=== PATIENT | male | born 1940 | race Caucasian/White ===

== ENCOUNTER 2017-09-12 03:15 | Inpatient (IN) ==
[2017-09-12] MEDS ORDERED: Pantoprazole 40 MG VIAL IVP ONE (04:03)
[2017-09-12] MEDS ORDERED: Ondansetron 4 MG/2 ML VIAL IVP ONE (04:03)
[2017-09-12] MEDS ORDERED: *HR* Nalbuphine 10 MG/ML AMPUL IVP STA (04:04)
--- NOTE | 2017-09-12 04:10 | Emergency Department Note ---
Disposition Clinical Impression: Abdominal pain Qualifiers: Abdominal location: epigastric Qualified Code(s): R10.13 - Epigastric pain Disposition: Admitted As Inpatient Condition: Good Referrals: Huy Reyes DO [Primary Care Provider] - Time of Disposition: 05:41 Abdominal Pain HPI - General Chief Complaint: ED Abdominal Pain Stated Complaint: abdominal pain/back pain was here yesterday Time Seen by Provider: 09/12/17 03:27 Source: patient Limitations: no limitations Nursing Notes Reviewed: Yes Vital Signs Reviewed: Yes - History of Present Illness HPI Narrative: This is a 77 year-old male with history of HTN, GERD, and biliary colic who presents with colicky mid-epigastric abdominal pain, radiating to the upper back , that began 1.5 days ago and has been persistent since then. He denies any associated fever, chest pain, vomiting, dyspnea, or urinary symptoms. He was seen here 1 day ago for these symptoms, and had a full workup including CT scans of the chest and abdomen and gallbladder ultrasound. The scans showed cholelithiasis and it was felt that his pain might be due to recurrent biliary colic. Patient presents again early this morning with worsening pain, not relieved by the analgesic he was prescribed. Pt Subjective Complaint: abdominal pain Onset (ago): day(s) (1.5) Consistency: Worsening Location: epigastric Pain Severity: moderate Pain Scale: 6 Quality: cramping, sharp Radiation: back (upper) Migration to: no migration Improves with: nothing Worsens with: nothing Context: history of similar episodes (attributed to biliary colic) Associated symptoms: Denies: nausea, vomiting, diarrhea, fever, constipation, dysuria, hematemesis, hematochezia, melena - Related Data Previous Rx's Medication Instructions Recorded Dicyclomine [Bentyl] 10 mg PO QID PRN #20 capsule 09/11/17 Ondansetron ODT [Zofran ODT] 4 mg SL Q8HR PRN #20 tab.rapdis 09/11/17 Allergies Allergy/AdvReac Type Severity Reaction Status Date / Time No Known Allergies Allergy Verified 09/11/17 06:17 All systems ED: reviewed and negative except as stated. Constitutional: Denies: fever Cardiovascular: Denies: chest pain Respiratory: Denies: dyspnea Gastrointestinal: Reports: as per HPI, abdominal pain. Denies: nausea, vomiting , diarrhea, constipation, hematemesis, melena, hematochezia Genitourinary: Denies: dysuria Neurological: Denies: headache, weakness, numbness Abdominal Pain PMH - Past Medical History Medical history: Reports: hypertension Male Surgical History: Reports: herniorrhaphy Psychiatric history: Reports: no psych history - Social History Smoking status: Never smoker Alcohol use: Reports: none Drug use: Reports: none Physical Exam - General Limitations: no limitations General appearance: alert - Head Head exam: atraumatic, normocephalic - Eye Eye exam: Present: normal appearance. Absent: scleral icterus - Neck Neck exam: Present: normal inspection - Respiratory Respiratory exam: Present: normal lung sounds bilaterally. Absent: respiratory distress - Cardiovascular Cardiovascular exam: Present: regular rate, normal rhythm, normal heart sounds - Abdominal Exam Abdominal exam: Present: soft, Non-Tender. Absent: distention, guarding, rebound, rigidity, Watkins's sign, tenderness at McBurney's Point - Extremities Exam Extremities exam: Present: normal inspection. Absent: calf tenderness - Neurological Exam Neurological exam: Present: alert, oriented X3. Absent: motor sensory deficit - Psychiatric Psychiatric exam: Present: normal affect, normal mood - Skin Skin exam: Present: warm, dry, intact Course - Reevaluation(s) Reevaluation #1: On recheck, patient resting comfortably, pain improved with treatment. Discussed test results with patient's . Time: 05:36 - Consultations Consultation #1: Reviewed case with Dr. Radford, and he has accepted patient for admission. Time: 05:41 Vital Signs Temperature 98.5 F 09/12/17 03:38 Pulse Rate 83 09/12/17 03:38 Respiratory Rate 18 09/12/17 03:38 Blood Pressure 136/85 09/12/17 03:38 O2 Sat by Pulse Oximetry 90 09/12/17 03:38 Temperature 98.5 F 09/12/17 03:38 Pulse Rate 83 09/12/17 03:38 Respiratory Rate 18 09/12/17 03:38 Blood Pressure 136/85 09/12/17 03:38 O2 Sat by Pulse Oximetry 90 09/12/17 03:38 Oxygen Delivery Oxygen Delivery Room Air Abdominal Pain - Medical Records Medical records reviewed: Yes I reviewed the patient's medical records. WBC markedly elevated in comparison with yesterday. Total bilirubin and LFTs also trending upward. - Lab Data Lab results reviewed: Yes I reviewed the patient's lab results. Lab results narrative: XR/XR acute abdominal series IMPRESSION: Nonobstructive bowel gas pattern. No free intraperitoneal air. Large hiatus hernia. Result diagrams: 09/12/17 04:11 09/12/17 04:11 Lab Results 09/12/17 09/12/17 09/12/17 Range/Units 04:11 04:11 04:11 WBC 20.3 H D (4.3-11.1) K/mcL RBC 5.98 H (4.19-5.50) M/mcL Hgb 18.6 H (12.9-16.9) g/dL Hct 54.9 H (37.5-50.1) % MCV 91.8 (83.0-100.0) fL MCH 31.1 (28.0-33.3) pg MCHC 33.9 (31.6-35.5) g/dL RDW 13.5 (11.5-14.5) % Plt Count 231 (140-400) K/mcL MPV 10.9 (9.4-12.4) fL Immature Gran % 0.6 (0-4) % Seg Neutrophils % 88.5 % Lymphocytes % 4.4 % Monocytes % 6.3 % Eosinophils % 0.0 % Basophils % 0.2 % Neutrophils # 18.0 H (1.6-8.9) K/mcL Lymphocytes # 0.9 (0.6-4.6) K/mcL Monocytes # 1.3 (0.0-1.3) K/mcL Eosinophils # 0.0 (0.0-0.6) K/mcL Basophils # 0.0 (0.0-0.2) K/mcL Sodium 135 L (136-145) mEq/L Potassium 4.3 (3.5-5.1) mEq/L Chloride 103 (98-107) mEq/L Carbon Dioxide 23 (23-29) mEq/L BUN 11 (8-23) mg/dL Creatinine 0.96 (0.70-1.30) mg/dL Est GFR ( Amer) > 60 (> 60) Est GFR (Non-Af Amer) > 60 (> 60) BUN/Creatinine Ratio 11 (6-26) Glucose 145 H (70-105) mg/dL Calculated Osmolality 282 (280-300) Calcium 9.4 (8.6-10.3) mg/dL Total Bilirubin 1.6 H (0.3-1.0) mg/dL Direct Bilirubin 0.4 H (0.0-0.2) mg/dL Indirect Bilirubin 1.2 (0.0-1.2) mg/dL AST 53 H (13-39) Units/L ALT 93 H (7-52) Units/L Alkaline Phosphatase 110 H (34-104) Units/L Troponin I 0.03 (< 0.04) ng/mL Serum Total Protein 7.1 (6.4-8.9) g/dL Albumin 4.4 (3.5-5.7) g/dL Globulin 2.7 (2.4-3.5) g/dL Albumin/Globulin Ratio 1.6 (1.1-2.2) Amylase 40 (29-103) Units/L Lipase 21 (11-82) Units/L Urine Color [place] A (Yellow) Urine Clarity Clear (Clear) Urine pH 6.0 (5.0-8.0) pH Units Ur Specific [place] > 1.030 H (1.010-1.025) Urine Protein 30 H (Neg-Trace) mg/dL Urine Glucose (UA) Normal (Normal) mg/dL Urine Ketones 15 H (Negative) mg/dL Urine Blood Negative (Negative) Urine Nitrite Negative (Negative) Urine Bilirubin Small H (Negative) Urine Urobilinogen Normal (Normal) mg/dL Ur Leukocyte Esterase Small H (Negative) Urine Microscopic RBC 0-3 (0-3) per hpf Urine Microscopic WBC 5-15 H (0-3) per hpf Ur Squamous Epith Cells Many H (None-Few) per lpf Urine Bacteria None Seen (None-Few) per hpf Hyaline Casts Moderate H (None-Few) per lpf Urine Mucus Moderate H (Few) Ur Culture Indicated? NO. A (NO) - Radiology Data Radiology results reviewed: Yes I reviewed the patient's radiology results. XR/XR acute abdominal series IMPRESSION: Nonobstructive bowel gas pattern. No free intraperitoneal air. Large hiatus hernia. - EKG Data EKG attestation: Yes I reviewed and interpreted this EKG. EKG shows normal: sinus rhythm [place]/QRS: left axis deviation, LBBB When compared to previous EKG there are: changes noted (12/27/12 (yesterday's EKG not available))
[2017-09-12 04:19] LABS: Bilirubin,Urine Small (Negative); Blood,Urine Negative (Negative); Clarity,Urine Clear (Clear); Color,Urine Orange (Yellow); Glucose,Urine (UA) Normal (Normal); Ketones,Urine 15 mg/dL (Negative); Leukocyte Esterase,Urine Small (Negative); Nitrite,Urine Negative (Negative); Protein,Urine 30 mg/dL (Neg-Trace); Specific Gravity,Urine > 1.030 (1.010-1.025); Urobilinogen,Urine Normal (Normal)
[2017-09-12 04:20] LABS: Bacteria,Urine None Seen per hpf (None-Few); Hyaline Casts,Urine Moderate per lpf (None-Few); RBC,Urine 0-3 per hpf (0-3); Squamous Epithelial Cell,Urine Many per lpf (None-Few)
[2017-09-12 04:21] LABS: Basophils % 0.2 %; Hematocrit 54.9 % (37.5-50.1); Hemoglobin 18.6 g/dL (12.9-16.9); Immature Granulocytes % 0.6 % (0-4); Lymphocytes # 0.9 K/mcL (0.6-4.6); Lymphocytes % 4.4 %; Mean Corpuscular HGB Conc 33.9 g/dL (31.6-35.5); Mean Corpuscular Hemoglobin 31.1 pg (28.0-33.3); Mean Corpuscular Volume 91.8 fL (83.0-100.0); Mean Platelet Volume 10.9 fL (9.4-12.4); Monocytes # 1.3 K/mcL (0.0-1.3); Monocytes % 6.3 %; Platelet Count 231 K/mcL (140-400); Red Blood Count 5.98 M/mcL (4.19-5.50); Red Cell Distribution Width 13.5 % (11.5-14.5); Segmented Neutrophils % 88.5 %
[2017-09-12 04:31] LABS: Mucus,Urine Moderate (Few)
[2017-09-12 04:45] LABS: Alanine Aminotransferase 93 Units/L (7-52); Albumin 4.4 g/dL (3.5-5.7); Albumin/Globulin Ratio 1.6 (1.1-2.2); Alkaline Phosphatase 110 Units/L (34-104); Amylase 40 Units/L (29-103); Aspartate Amino Transferase 53 Units/L (13-39); BUN/Creatinine Ratio 11 (6-26); Bilirubin,Direct 0.4 mg/dL (0.0-0.2); Bilirubin,Indirect 1.2 mg/dL (0.0-1.2); Bilirubin,Total 1.6 mg/dL (0.3-1.0); Blood Urea Nitrogen 11 mg/dL (8-23); Calcium 9.4 mg/dL (8.6-10.3); Carbon Dioxide 23 mEq/L (23-29); Chloride 103 mEq/L (98-107); Globulin 2.7 g/dL (2.4-3.5); Glucose 145 mg/dL (70-105); Lipase 21 Units/L (11-82); Osmolality,Calculated 282 (280-300); Potassium 4.3 mEq/L (3.5-5.1); Sodium 135 mEq/L (136-145); Total Protein 7.1 g/dL (6.4-8.9); Troponin I 0.03 ng/mL (< 0.04); eGFR For African Americans > 60 (> 60); eGFR For Non-African Americans > 60 (> 60)
--- NOTE | 2017-09-12 09:25 | General Surg History&Physical ---
Date of Encounter: 09/12/17 Time of Encounter: 09:25 Assessment and Plan (1) Cholecystitis Current Visit: Yes Status: Acute 77M with post prandial abdominal pain, cholelithiasis, leukocytosis; strongly concerning for acute cholecystitis; NPO IVF abx chem dvt prophylaxis: lovenox cardiology evaluation plan for OR on 09/14 The assessment and plan as outlined above was discussed with the patient and/or family members who expressed understanding and agreement. All questions were answered. History of Present Illness Chief complaint: abdominal pain HPI: Mr. Gonzalez is a 77 year old male PMH significant for HTN, GERD who presents for post prandial abdominal pain. The pain is brought on after eating things like potato chips, beninese fries and the like. The patient does report associated nausea and PO intolerance. In addition, the pain is epigastric with radiation to the right shoulder/back. No associated fevers, chills, chest pain, nor shortness of breath. He was evaluated in the ED on 09/11 and discharged but returned the following day due to persistence of symptoms. he did have an US which was evaluated and interpreted by me which demonstrated gallstones. He also had a CT scan which confirmed the same. Past Med Surg Social Fam HX - Past Medical History Medical history: hypertension, kidney stones Additional medical history: prostate cancer. right eye retinal detachment Psychiatric history: no psych history - Past Surgical History Surgical History: cataract Additional surgical history: Sx for detached retinas - Social History Smoking Status: Never smoker Smokeless Tobacco Status: No Alcohol use: none Drug use: none - Additional Family History Additional family history: non contributory Medications and Allergies Amlodipine Besylate 10 mg PO DAILY 09/12/17 [History] Omeprazole [PriLOSEC] 20 mg PO BIDAC 09/12/17 [History] 3 Allergy/AdvReac Type Severity Reaction Status Date / Time No Known Allergies Allergy Verified 09/11/17 06:17 Review of Systems All systems PM: The remainder of the systems were reviewed and are negative General Surgery Exam Initial Vital Signs Temp Pulse Resp BP Pulse Ox 98.5 F 83 18 136/85 90 09/12/17 03:38 09/12/17 03:38 09/12/17 03:38 09/12/17 03:38 09/12/17 03:38 - General physical appearance no distress - Eyes normal ocular movement - ENT normocephalic - Neck no lymphadectomy - Respiratory normal expansion, normal respiratory effort - Cardiovascular Cardiovascular exam: Present: RRR - Abdomen Abdomen general surgery: Present: soft, tender, surgical scars Abdominal Tenderness: Present: epigastic, RUQ ((-)hernandez's sign) - Integumentary Integumentary general surgery: Present: warm and dry - Neurologic Present: CN 2-12 grossly intact - Musculoskeletal Present: normal posture - Psychiatric Psychiatric general surgery: Present: A&Ox3 Results - Labs 09/12/17 04:11 09/12/17 04:11 Abnormal lab results WBC 20.3 K/mcL (4.3-11.1) H D 09/12/17 04:11 RBC 5.98 M/mcL (4.19-5.50) H 09/12/17 04:11 Hgb 18.6 g/dL (12.9-16.9) H 09/12/17 04:11 Hct 54.9 % (37.5-50.1) H 09/12/17 04:11 Neutrophils # 18.0 K/mcL (1.6-8.9) H 09/12/17 04:11 Sodium 135 mEq/L (136-145) L 09/12/17 04:11 Glucose 145 mg/dL (70-105) H 09/12/17 04:11 POC Glucose 129 mg/dL (70-99) H 09/12/17 06:38 Total Bilirubin 1.6 mg/dL (0.3-1.0) H 09/12/17 04:11 Direct Bilirubin 0.4 mg/dL (0.0-0.2) H 09/12/17 04:11 AST 53 Units/L (13-39) H 09/12/17 04:11 ALT 93 Units/L (7-52) H 09/12/17 04:11 Alkaline Phosphatase 110 Units/L (34-104) H 09/12/17 04:11 Urine Color [place] (Yellow) A 09/12/17 04:11 Ur Specific [place] > 1.030 (1.010-1.025) H 09/12/17 04:11 Urine Protein 30 mg/dL (Neg-Trace) H 09/12/17 04:11 Urine Ketones 15 mg/dL (Negative) H 09/12/17 04:11 Urine Bilirubin Small (Negative) H 09/12/17 04:11 Ur Leukocyte Esterase Small (Negative) H 09/12/17 04:11 Urine Microscopic WBC 5-15 per hpf (0-3) H 09/12/17 04:11 Ur Squamous Epith Cells Many per lpf (None-Few) H 09/12/17 04:11 Hyaline Casts Moderate per lpf (None-Few) H 09/12/17 04:11 Urine Mucus Moderate (Few) H 09/12/17 04:11 Ur Culture Indicated? NO. (NO) A 09/12/17 04:11 All other labs normal. - Imaging CT scan - abdomen: report reviewed, image reviewed CT scan - pelvis: report reviewed, image reviewed US - abdomen: report reviewed, image reviewed
[2017-09-12] MEDS ORDERED: OXYCODONE Oral CONC 10 MG/0.5 ML ORAL.SYG SL PRN (09:33)
[2017-09-12] MEDS ORDERED: Ondansetron 4 MG/2 ML VIAL IVP PRN ×2 (09:33→09:35)
[2017-09-12] MEDS ORDERED: 0.9 % Sodium Chloride 1,000 ML IVC ONE (09:33)
[2017-09-12] MEDS ORDERED: *HR* Promethazine 25 MG/ML VIAL IVP PRN (09:35)
[2017-09-12] MEDS ORDERED: Piperacillin/Tazobactam 3.375 GM in 0.9 % Sodium Chloride Mini Bag 100 ML IVPB SCH (09:36)
--- NOTE | 2017-09-12 10:02 | Electrocardiograph Report ---
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
--- NOTE | 2017-09-12 10:56 | Cardiology Consult Note ---
<Juan Murphy - Last Filed: 09/12/17 12:29> Date of Encounter: 09/12/17 Time of Encounter: 10:45 Assessment and Plan (1) Pre-operative cardiovascular examination Current Visit: Yes Status: Acute Risk factors include very mild LDL elevation (109), and hypertension. Takes Norvasc at home for HTN. New LBBB compared to 2013, though overall morphologically similar. Patient does state he has had abnormal EKGs for 20 years. Negative troponin x1. Acutely asymptomatic. Paucity of other historical risk factors. No acute ACS equivalent symptoms. - 1% risk of perioperative MACE based on RCRI risk stratification tool - low risk. - Will obtain an echocardiogram. Further recommendations to follow pending results. Discussion w patient/family: The assessment and plan as outlined above was discussed with the patient and/or family members who expressed understanding and agreement. All questions were answered. Thank you for involving us in the care of your patient. Please call with any questions. History of Present Illness Consult date: 09/12/17 Requesting physician: Osmin Radford Consult reason: "Pre-op risk stratification" Chief complaint: Abdominal Pain History of present illness: Mr. Gonzalez is a 77 year old male with past medical history of hypertension currently admitted to general surgery service for right upper quadrant pain, cholecystitis, and planned cholecystectomy. Cardiology consulted for preoperative risk stratification. Only known relevant history is positive is "abnormal EKGs since 1997" when he was kicked by a horse, and HTN. Patient denies any history of cardiac dysrhythmias, cardiomyopathy, CAD, myocardial infarction, chest pain, congestive heart failure, asthma/emphysema/COPD, HLP, CVA, TIA, PE, DVT, PAD, diabetes, CKD, hepatic cirrhosis, or history of use of tobacco/alcohol/ stimulants. Also states family history unremarkable for cardiovascular diseases. Labs on present admission demonstrate LDL of 109 and HDL of 36. EKG today demonstrates rate 84, NM 163, QRS 147, QTc 443, and R-axis -46 (LAD) . New LBBB compared to EKG dated 12/27/2012 Does get occasional pedal edema when he walks for extended periods of time. Patient tolerates extended ambulation without any fatigue or dyspnea. Patient tolerates going down and up his basement stairs (12-15 steps) without any exertional dyspnea. Patient sleeps fully supine without any difficulty breathing. Patient denies any ongoing or historical retrosternal chest pain. No history of pulmonologic pathologies or ongoing shortness of breath. Presently denies having any lightheadedness, recent syncope, visual disturbances , fatigue, chest pain, palpitations, shortness of breath, worsening pedal edema , or noted weight increases. Past Med Surg Social Fam HX - Past Medical History Source: patient, old records reviewed Medical history: hyperlipidemia, hypertension, kidney stones Additional medical history: prostate cancer. right eye retinal detachment Psychiatric history: no psych history - Past Surgical History Surgical History: non-contributory, cataract Additional surgical history: Sx for detached retinas - Social History Smoking Status: Never smoker Smokeless Tobacco Status: No Alcohol use: none Drug use: none Medications and Allergies Amlodipine Besylate 10 mg PO DAILY 09/12/17 [History] Omeprazole [PriLOSEC] 20 mg PO BIDAC 09/12/17 [History] 3 Allergy/AdvReac Type Severity Reaction Status Date / Time No Known Allergies Allergy Verified 09/12/17 09:49 All Systems Review: The remainder of the systems were reviewed and are negative Physical Examination General: Conversant, No Apparent Distress HEENT: Atraumatic, Normocephaly, Mucus Membranes Moist Neck: No JVD, Normal carotid pulses Cardiac: Reg Rate and Rhythm, Normal S1 and S2, No Murmur Lungs: Normal Breath Sounds, No Wheeze, Rales, Rhonchi Neuro: Alert and responsive, No focal deficits noted Abdomen: Soft, Non-Tender Skin: No rashes noted on visualized skin Musculoskeletal: No Chest Wall Tenderness Extremities: No Clubbing, No Cyanosis, No Edema, Normal Pulses Results 09/12/17 04:11 09/12/17 04:11 Consult Discharge Plan - Plan Referrals: Huy Reyes DO [Primary Care Provider] - <Mary Bullock - Last Filed: 09/12/17 17:18> Date of Encounter: 09/12/17 - Attending Attestation I examined this patient and my medical decision-making was reviewed with the Resident Physician. I agree with the documented findings, disposition and treatment plan. Mr. Gonzalez presents with RUQ pain. Surgery service concerned for cholecystitis and plan for possible cholecystectomy. CT scan demonstrated cholelithiasis with mild GB distention. We were asked to evaluate the patient for risk assessment prior to surgery. He denies any cardiac history and has no active cardiac symptoms. However, his ECG demonstrates a LBBB which is new when compared to prior ECG from 2013. It is unclear when this change occurred. Risk factors for CAD include male gender , HTN and borderline dyslipidemia. Discussed consideration for ischemic evaluation prior to potential surgery. He will undergo an Echo for evaluation of structure and function. Of note, CT scan also demonstrated a 5mm nonobstructing calculi in the right kidney which potentially could be contributing to the patient's discomfort. He has evidence of a 9mm calculus in the bladder lumen suggesting this recently traversed the ureter possibly explaining his recent symptoms. Recommend considering this in the differential of patient's presenting symptoms. Troponin negative x2. No recent chest pain. Symptoms do not appear related to a cardiac etiology. Assessment and Plan Discussion w patient/family: The assessment and plan as outlined above was discussed with the patient and/or family members who expressed understanding and agreement. All questions were answered. Thank you for involving us in the care of your patient. Please call with any questions. History of Present Illness History of present illness: Mr. Gonzalez is a 77 year old male All Systems Review: The remainder of the systems were reviewed and are negative Physical Examination Vital Signs, Last 4 Hours Temp Pulse Resp BP Pulse Ox 09/12/17 14:40 97.5 F L 66 20 125/74 92 Results 09/12/17 04:11 09/12/17 04:11
--- NOTE | 2017-09-12 13:07 | Event Note ---
Date of Encounter: 09/12/17 Time of Encounter: 13:04 1250: Reviewed with bedside RN regarding pt has not received 1st dose of Zosyn or IV fluids. RN states she will administer medications. Further reviewed with patient his treatment plan including remaining in the hospital for IV antibiotics given increase in WBC and plans for surgical intervention this admission (currently scheduled for 8 AM Tuesday09/14/2017). Also reviewed with patient and his the need for cardiology consult for cardiovascular risk stratification given his abnormal EKG. Noted cardiology plans for echocardiogram. Okay for patient to have clear liquid diet however I would not recommend progressing past that at this time given his reports of increased abdominal pain this admission and his elevated WBC. NPO at midnight for surgical procedure on 09/14/2017
[2017-09-12] MEDS: amLODIPine 5 MG TABLET PO SCH (13:26)
[2017-09-12] MEDS: Piperacillin/Tazobactam 3.375 GM in 0.9 % Sodium Chloride Mini Bag 100 ML IVPB SCH ×2 (13:31→21:43)
[2017-09-12] MEDS: *HR* Enoxaparin 40 MG/0.4 ML SYRINGE SQ SCH (13:34)
[2017-09-12] MEDS: D5% in 0.45% NACL w KCl 20 MEQ/1,000 ML MLS IVC SCH ×2 (19:57→20:14)
[2017-09-13] MEDS: Piperacillin/Tazobactam 3.375 GM in 0.9 % Sodium Chloride Mini Bag 100 ML IVPB SCH (03:20)
[2017-09-13] MEDS ORDERED: Regadenoson 0.4 MG/5 ML SYRINGE IVP ONE (05:41)
[2017-09-13] MEDS: D5% in 0.45% NACL w KCl 20 MEQ/1,000 ML MLS IVC SCH ×3 (05:42→22:29)
[2017-09-13] MEDS: *HR* Enoxaparin 40 MG/0.4 ML SYRINGE SQ SCH (05:44)
[2017-09-13 06:48] LABS: Hemoglobin 16.1 g/dL (12.9-16.9); Mean Corpuscular HGB Conc 34.3 g/dL (31.6-35.5); Mean Corpuscular Hemoglobin 31.6 pg (28.0-33.3); Mean Corpuscular Volume 92.3 fL (83.0-100.0); Mean Platelet Volume 11.3 fL (9.4-12.4); Platelet Count 181 K/mcL (140-400); Red Blood Count 5.09 M/mcL (4.19-5.50); Red Cell Distribution Width 13.9 % (11.5-14.5)
[2017-09-13 06:52] LABS: INR 1.7; Prothrombin Time 18.1 Seconds (9.4-12.1)
[2017-09-13 06:55] LABS: Activated Partial Thrombo Time 33.2 Seconds (26.0-36.0)
[2017-09-13 07:07] LABS: BUN/Creatinine Ratio 15 (6-26); Blood Urea Nitrogen 15 mg/dL (8-23); Calcium 8.5 mg/dL (8.6-10.3); Carbon Dioxide 22 mEq/L (23-29); Chloride 103 mEq/L (98-107); Glucose 130 mg/dL (70-105); Osmolality,Calculated 279 (280-300); Potassium 4.3 mEq/L (3.5-5.1); Sodium 133 mEq/L (136-145); eGFR For African Americans > 60 (> 60); eGFR For Non-African Americans > 60 (> 60)
[2017-09-13 07:42] LABS: Lymphocytes # 2.2 K/mcL (0.6-4.6); Monocytes # 1.6 K/mcL (0.0-1.3); Neutrophils # 23.5 K/mcL (1.6-8.9); Platelet Estimate Normal (Normal)
--- NOTE | 2017-09-13 07:43 | General Surgery Progress Note ---
<AngusGillian Gayatri - Last Filed: 09/13/17 10:03> Date of Encounter: 09/13/17 Time of Encounter: 07:43 - Assessment and Plan (1) Cholecystitis Current Visit: Yes Status: Acute WBC increased from 20.3 to 27.3 despite Zosyn administration; lactic acid (1.9) ; LFT (WNL) and bilirubin pending Stress test per cardiology in progress. OK for patient to have CLD today (when OK with cardiology) and NPO at midnight for procedure. Will change antibiotics from Zosyn to Cipro and Flagyl will plan for urgent surgical intervention in the next 24 to 48 hours will continue to closely follow (2) Abnormal finding on urinalysis Current Visit: Yes Status: Acute Negative for nitrites, positive ketones concentrated, and urine microscopic white blood cells. No culture indicated due to contamination. As noted above Zosyn is switched to Cipro Flagyl which will give him urinary coverage also. Will continue to monitor. He denies urinary symptoms. (3) Paraesophageal hiatal hernia Current Visit: Yes Status: Acute Paraesophageal hernia vs sliding hiatal hernia (per radiology read the GE junction is in the appropriate location). Regardless, this does not seem to be the cause of his current acute issues; however, will require follow-up for intervention. (4) Abdominal pain Current Visit: Yes Status: Acute See assessment and plan above Qualifiers: Abdominal location: epigastric Qualified Code(s): R10.13 - Epigastric pain (5) Abnormal CT of the abdomen Current Visit: Yes Status: Acute Atherosclerosis, nephrolithiasis, stable bilateral renal cysts, renal cortical scarring, stable hepatic cysts, bilateral common iliac artery aneurysms Follow-up with PCP at d/c CT/CT angio abdomen pelvis IMPRESSION: 1. Unremarkable CTA appearance of the aorta, without evidence of aneurysm or dissection. 2. No CT evidence of a pulmonary embolism. 3. Dependent atelectasis within the bilateral lungs, without acute intrapulmonary findings. 4. Bilateral nonobstructing nephrolithiasis, with an additional layering calculus within the urinary bladder. However, there is no evidence of a ureteral calculus or hydronephrosis. 5. Stable bilateral renal cysts with left renal cortical scarring. 6. Cholelithiasis. 7. Stable hepatic cysts. 8. Stable large hiatal hernia. 9. Mild bilateral common iliac artery aneurysms. Objective Vital Signs - Last 8 Hours Temp Pulse Resp BP Pulse Ox 09/13/17 03:40 99.4 F 89 16 119/71 92 Intake and Output 09/12/17 09/12/17 09/13/17 15:59 23:59 07:59 Intake Total 0 / 0 1460 / 1460 1050 / 1050 Output Total 150 / 150 325 / 325 75 / 75 Balance -150 / -150 1135 / 1135 975 / 975 Intake: IV Fluids 1100 / 1100 1050 / 1050 0.9 % Sodium Chloride 1,000 ML 1000 / 1000 @ 999 mls/hr IVC .Q1H1M ONE Rx# :[id number] KCl 20mEq IN D5%-0.45 NACL 20 1000 / 1000 meq In 1,000 ml @ 125 mls/hr IVC .Q8H [facility] Rx#:[id number] Zosyn 3.375 GM In 0.9 % Sodium 100 / 100 50 / 50 Chloride (Mini-Bag +) 100 ML @ 25 mls/hr IVPB Q8H [facility] Rx#: [id number] Oral 0 / 0 360 / 360 0 / 0 Output: Urine 150 / 150 325 / 325 75 / 75 Other: Meal NPO Lunch Dinner Percent of Meal Consumed 25% Stool Size Small Stool Consistency loose liquid Stool Color Brown # Voids 1 Weight 91.1 kg Blood Glucose* 109 Patient Weight 09/13/17 23:59 Weight 91.1 kg - Labs 09/13/17 06:05 09/13/17 06:05 Diabetes panel 09/13/17 Range/Units 06:05 Sodium 133 L (136-145) mEq/L Potassium 4.3 (3.5-5.1) mEq/L Chloride 103 (98-107) mEq/L Carbon Dioxide 22 L (23-29) mEq/L BUN 15 (8-23) mg/dL Creatinine 1.00 (0.70-1.30) mg/dL Glucose 130 H (70-105) mg/dL Calcium 8.5 L (8.6-10.3) mg/dL Calcium panel 09/13/17 Range/Units 06:05 Calcium 8.5 L (8.6-10.3) mg/dL Pituitary panel 09/13/17 Range/Units 06:05 Sodium 133 L (136-145) mEq/L Potassium 4.3 (3.5-5.1) mEq/L Chloride 103 (98-107) mEq/L Carbon Dioxide 22 L (23-29) mEq/L BUN 15 (8-23) mg/dL Creatinine 1.00 (0.70-1.30) mg/dL Glucose 130 H (70-105) mg/dL Calcium 8.5 L (8.6-10.3) mg/dL Adrenal panel 09/13/17 Range/Units 06:05 Sodium 133 L (136-145) mEq/L Potassium 4.3 (3.5-5.1) mEq/L Chloride 103 (98-107) mEq/L Carbon Dioxide 22 L (23-29) mEq/L BUN 15 (8-23) mg/dL Creatinine 1.00 (0.70-1.30) mg/dL Glucose 130 H (70-105) mg/dL Calcium 8.5 L (8.6-10.3) mg/dL Consult Discharge Plan - Plan Referrals: Huy Reyes DO [Primary Care Provider] - <Osmin Radford - Last Filed: 09/13/17 12:30> Date of Encounter: 09/13/17 - Assessment and Plan (1) Cholecystitis Current Visit: Yes Status: Acute Objective Vital Signs - Last 8 Hours Temp Pulse Resp BP Pulse Ox 09/13/17 11:20 98.5 F 86 17 117/80 87 Intake and Output 09/12/17 09/13/17 09/13/17 23:59 07:59 15:59 Intake Total 1460 / 1460 1050 / 1050 0 / 0 Output Total 325 / 325 75 / 75 100 / 100 Balance 1135 / 1135 975 / 975 -100 / -100 Intake: IV Fluids 1100 / 1100 1050 / 1050 0.9 % Sodium Chloride 1,000 ML 1000 / 1000 @ 999 mls/hr IVC .Q1H1M [facility] Rx# :[id number] KCl 20mEq IN D5%-0.45 NACL 20 1000 / 1000 meq In 1,000 ml @ 125 mls/hr IVC .Q8H [facility] Rx#:[id number] Zosyn 3.375 GM In 0.9 % Sodium 100 / 100 50 / 50 Chloride (Mini-Bag +) 100 ML @ 25 mls/hr IVPB Q8H [facility] Rx#: [id number] Oral 360 / 360 0 / 0 0 / 0 Output: Urine 325 / 325 75 / 75 100 / 100 Other: Meal Dinner Percent of Meal Consumed 25% Stool Size Small Stool Consistency loose liquid Stool Color Brown # Voids 1 Weight 91.1 kg Blood Glucose* 120 Patient Weight 09/13/17 23:59 Weight 91.1 kg - Labs 09/13/17 06:05 09/13/17 06:05 Diabetes panel 09/13/17 Range/Units 06:05 Sodium 133 L (136-145) mEq/L Potassium 4.3 (3.5-5.1) mEq/L Chloride 103 (98-107) mEq/L Carbon Dioxide 22 L (23-29) mEq/L BUN 15 (8-23) mg/dL Creatinine 1.00 (0.70-1.30) mg/dL Glucose 130 H (70-105) mg/dL Calcium 8.5 L (8.6-10.3) mg/dL AST 24 (13-39) Units/L ALT 43 (7-52) Units/L Alkaline Phosphatase 72 (34-104) Units/L Albumin 3.3 L (3.5-5.7) g/dL Calcium panel 09/13/17 Range/Units 06:05 Calcium 8.5 L (8.6-10.3) mg/dL Albumin 3.3 L (3.5-5.7) g/dL Pituitary panel 09/13/17 Range/Units 06:05 Sodium 133 L (136-145) mEq/L Potassium 4.3 (3.5-5.1) mEq/L Chloride 103 (98-107) mEq/L Carbon Dioxide 22 L (23-29) mEq/L BUN 15 (8-23) mg/dL Creatinine 1.00 (0.70-1.30) mg/dL Glucose 130 H (70-105) mg/dL Calcium 8.5 L (8.6-10.3) mg/dL Adrenal panel 09/13/17 Range/Units 06:05 Sodium 133 L (136-145) mEq/L Potassium 4.3 (3.5-5.1) mEq/L Chloride 103 (98-107) mEq/L Carbon Dioxide 22 L (23-29) mEq/L BUN 15 (8-23) mg/dL Creatinine 1.00 (0.70-1.30) mg/dL Glucose 130 H (70-105) mg/dL Calcium 8.5 L (8.6-10.3) mg/dL Total Bilirubin 1.4 H (0.3-1.0) mg/dL AST 24 (13-39) Units/L ALT 43 (7-52) Units/L Alkaline Phosphatase 72 (34-104) Units/L Albumin 3.3 L (3.5-5.7) g/dL - Attending Attestation patient seen and examined. i have reviewed all notes, labs, and imaging; i agree with the above assessment and plan and wish to add the following... will plan for surgery pending cardiology results
[2017-09-13 08:30] LABS: Alanine Aminotransferase 43 Units/L (7-52); Albumin 3.3 g/dL (3.5-5.7); Albumin/Globulin Ratio 1.4 (1.1-2.2); Alkaline Phosphatase 72 Units/L (34-104); Aspartate Amino Transferase 24 Units/L (13-39); Bilirubin,Direct 0.6 mg/dL (0.0-0.2); Bilirubin,Indirect 0.8 mg/dL (0.0-1.2); Bilirubin,Total 1.4 mg/dL (0.3-1.0); Globulin 2.3 g/dL (2.4-3.5); Total Protein 5.6 g/dL (6.4-8.9)
[2017-09-13] MEDS ORDERED: Pantoprazole 40 MG VIAL IVP SCH (09:00)
[2017-09-13] MEDS: amLODIPine 5 MG TABLET PO SCH (09:16)
[2017-09-13] MEDS: MetroNIDAZOLE 500 MG/100 ML 500 MG/100 ML BAG IVPB SCH ×2 (09:17→16:30)
--- NOTE | 2017-09-13 11:58 | Cardiology Progress Note ---
Date of Encounter: 09/13/17 Time of Encounter: 11:55 Assessment and Plan (1) Pre-operative cardiovascular examination Current Visit: Yes Status: Acute Pre-op risk stratification for urgent cholecystectomy. No known prior cardiac hx. New LBBB compared to 2012. Pt reported abnormal EKGs for 20 years. Negative troponin. Asymptomatic. Given LBBB, TTE and Pharmacologic nuclear stress test was recommended. TTE LVEF 40-45%. Mildly dilated left ventricle. Segmental left ventricular systolic dysfunction. Mild LVDD. Atypical septal motion consistent with bundle branch block. Normal right ventricular structure and function. Mild phtn. No significant valvular dysfunction. Pharmacologic nuclear stress test: Gated EF 35%. Large sized, moderate to severe intensity, fixed defect throughout the inferior, inferolateral, and apex segments consistent with prior infarct. Perfusion imaging was negative for ischemia. Pt is at least moderate risk from cardiac perspective for urgent cholecystectomy. Given that pt is functional and asymptomatic and stress test is negative for ischemia, inpt LHC is not indicated prior to a necessary surgery. Given reduced EF 40-45% and evidence of large area or prior infarct on stress with no known prior cardiac hx, would recommend outpt follow-up to discuss outpt LHC in 2-3 weeks. Pt and family agree to this plan. Start BB and Statin. Recommend starting ASA 81mg daily when okay with surgery. Cardiology signing off. Reconsult PRN. (2) Abnormal stress test Current Visit: Yes Status: Acute Pharmacologic nuclear stress test: Gated EF 35%. Large sized, moderate to severe intensity, fixed defect throughout the inferior, inferolateral, and apex segments consistent with prior infarct. Perfusion imaging was negative for ischemia. Frequent PVCs prior to exam beginning. 4 beat NSVT during stress. No known prior cardiac hx. Negative for ischemia. Pt is functional and asymptomatic from a cardiac standpoint. Recommend outpt follow-up in 2-3 weeks to re-evaluate and discuss outpt LHC. Pt and agreeable to plan. I would recommend ASA, Statin, BB given presumed CAD. Pt and seem hesitant , but explained this is the recommendation. (3) Cardiomyopathy Current Visit: Yes Status: Acute TTE LVEF 40-45%. Mildly dilated left ventricle. Segmental left ventricular systolic dysfunction. Mild left ventricular diastolic dysfunction. Atypical septal motion consistent with bundle branch block. Normal right ventricular structure and function. Mild pulmonary hypertension. No significant valvular dysfunction. Pharmacologic nuclear stress test: Gated EF 35%. Evidence of prior infarct, negative for ischemia. Suspect ICMP given findings. Pt euvolemic, no acute complaints. Recommend BB--will start and ACEi if BP tolerates. Outpt follow-up to discuss outpt [facility]. Qualifiers: Cardiomyopathy type: unspecified Qualified Code(s): I42.9 - Cardiomyopathy , unspecified (4) NSVT (nonsustained ventricular tachycardia) Current Visit: Yes Status: Acute Frequent PVCs prior to beginning stress test. 4 beat NSVT during stress. CMP EF 40-45% on TTE. Discussed with Dr. Bullock. Add Toprol XL 12.5mg daily. Order for pt to be on telemetry for close monitoring. Discussion w patient/family: The assessment and plan as outlined above was discussed with the patient and/or family members who expressed understanding and agreement. All questions were answered. Thank you for involving us in the care of your patient. Please call with any questions. I will discuss all the above with Dr. Bullock and make changes as necessary. Subjective Interval history: Pt underwent stress test and echo for pre-op risk stratification. Pt denies chest pain or dyspnea overnight. Reviewed surgery note, plan is for urgent cholecystectomy in the next 24-48 hours. TTE LVEF 40-45%. Mildly dilated left ventricle. Segmental left ventricular systolic dysfunction. Mild left ventricular diastolic dysfunction. Atypical septal motion consistent with bundle branch block. Normal right ventricular structure and function. Mild pulmonary hypertension. No significant valvular dysfunction. Pharmacologic nuclear stress test: Gated EF 35%. Large sized, moderate to severe intensity, fixed defect throughout the inferior, inferolateral, and apex segments consistent with prior infarct. Perfusion imaging was negative for ischemia. Objective Vital Signs, Last 4 Hours Temp Pulse Resp BP Pulse Ox 09/13/17 11:20 98.5 F 86 17 117/80 87 Vital Signs Temp Pulse Resp BP Pulse Ox 09/13/17 11:20 98.5 F 86 17 117/80 87 09/13/17 03:40 99.4 F 89 16 119/71 92 09/12/17 22:57 98.5 F 86 18 125/83 92 09/12/17 19:17 98.6 F 78 17 116/78 92 09/12/17 14:40 97.5 F L 66 20 125/74 92 Intake and Output 09/12/17 09/13/17 09/13/17 23:59 07:59 15:59 Intake Total 1460 / 1460 1050 / 1050 0 / 0 Output Total 325 / 325 75 / 75 100 / 100 Balance 1135 / 1135 975 / 975 -100 / -100 Intake: IV Fluids 1100 / 1100 1050 / 1050 0.9 % Sodium Chloride 1,000 ML 1000 / 1000 @ 999 mls/hr IVC .Q1H1M [facility] Rx# :[id number] KCl 20mEq IN D5%-0.45 NACL 20 1000 / 1000 meq In 1,000 ml @ 125 mls/hr IVC .Q8H [facility] Rx#:[id number] Zosyn 3.375 GM In 0.9 % Sodium 100 / 100 50 / 50 Chloride (Mini-Bag +) 100 ML @ 25 mls/hr IVPB Q8H [facility] Rx#: [id number] Oral 360 / 360 0 / 0 0 / 0 Output: Urine 325 / 325 75 / 75 100 / 100 Other: Meal Dinner Percent of Meal Consumed 25% Stool Size Small Stool Consistency loose liquid Stool Color Brown # Voids 1 Weight 91.1 kg Blood Glucose* 120 Patient Weight 09/13/17 23:59 Weight 91.1 kg General: Conversant, No Apparent Distress HEENT: Atraumatic, Normocephaly, Mucus Membranes Moist Neck: No JVD, Normal carotid pulses Cardiac: Reg Rate and Rhythm, Normal S1 and S2, No Murmur Lungs: Normal Breath Sounds, No Wheeze, Rales, Rhonchi Neuro: Alert and responsive, No focal deficits noted Abdomen: Soft, Other (tender) Skin: No rashes noted on visualized skin Musculoskeletal: No Chest Wall Tenderness Extremities: No Clubbing, No Cyanosis, No Edema, Normal Pulses Results 09/13/17 06:05 09/13/17 06:05 Lab Results 09/13/17 09/13/17 09/13/17 06:05 06:05 06:05 WBC 27.3 H Hgb 16.1 D Hct 47.0 Plt Count 181 INR 1.7 APTT 33.2 Sodium 133 L Potassium 4.3 Chloride 103 Carbon Dioxide 22 L BUN 15 Creatinine 1.00 Glucose 130 H Calcium 8.5 L Total Bilirubin 1.4 H AST 24 ALT 43 Alkaline Phosphatase 72 Short CBC 09/13/17 Range/Units 06:05 WBC 27.3 H (4.3-11.1) K/mcL Hgb 16.1 D (12.9-16.9) g/dL Hct 47.0 (37.5-50.1) % Plt Count 181 (140-400) K/mcL Neutrophils # 23.5 H (1.6-8.9) K/mcL BMP 09/13/17 Range/Units 06:05 Sodium 133 L (136-145) mEq/L Potassium 4.3 (3.5-5.1) mEq/L Chloride 103 (98-107) mEq/L Carbon Dioxide 22 L (23-29) mEq/L BUN 15 (8-23) mg/dL Creatinine 1.00 (0.70-1.30) mg/dL Glucose 130 H (70-105) mg/dL Calcium 8.5 L (8.6-10.3) mg/dL Liver Function 09/13/17 Range/Units 06:05 Total Bilirubin 1.4 H (0.3-1.0) mg/dL Direct Bilirubin 0.6 H (0.0-0.2) mg/dL AST 24 (13-39) Units/L ALT 43 (7-52) Units/L Alkaline Phosphatase 72 (34-104) Units/L Albumin 3.3 L (3.5-5.7) g/dL Impressions Echocardiogram 09/12/17 12:31 Impressions: LVEF 40-45%. Mildly dilated left ventricle. Segmental left ventricular systolic dysfunction. Mild left ventricular diastolic dysfunction. Atypical septal motion consistent with bundle branch block. Normal right ventricular structure and function. Mild pulmonary hypertension. No significant valvular dysfunction. Left Ventricular Wall Motion: Rest Echo Findings The mid inferior, basal inferior, mid inferior lateral and basal inferior lateral weaver were hypokinetic. All other wall segments showed normal motion. Findings: Study Quality * Technically adequate exam. ECG Findings * Sinus rhythm with BBB. Left Ventricle * LVEF 40-45%. * Mildly dilated left ventricle. * Segmental left ventricular systolic dysfunction. * Mild left ventricular diastolic dysfunction. * Atypical septal motion consistent with bundle branch block. Right Ventricle * Normal right ventricular structure and function. Left Atrium * Moderately dilated left atrium. Right Atrium * Normal right atrial size. Aortic Valve * Aortic valve not well visualized. * No aortic stenosis. * No aortic regurgitation. Mitral Valve * Normal mitral valve structure and function. * No mitral stenosis. * Trace mitral regurgitation. Tricuspid Valve * Normal tricuspid valve structure and function. * Trace tricuspid regurgitation. * Mild pulmonary hypertension. Pulmonic Valve * Pulmonic valve not well visualized. Aorta * Normally sized aortic root. Pericardium * The pericardium appears normal. IVC * Normal IVC dimensions and inspiratory collapse. Pulmonary Artery * Normal visualized portions of the main pulmonary artery. Active Medications Amlodipine Besylate (Norvasc) 10 mg PO DAILY [facility] Stop: 03/14/18 09:46 Last Admin: 09/13/17 09:16 Dose: 10 mg Enoxaparin Sodium (Lovenox) 40 mg SQ 0600 [facility] PRN Reason: Protocol Stop: 03/14/18 09:36 Last Admin: 09/13/17 05:44 Dose: 40 mg Hydralazine HCl (Hydralazine) 10 mg IVP Q6HR PRN PRN Reason: Hypertension Stop: 03/14/18 09:36 Potassium Chloride/Dextrose/Sod Cl (Kcl 20meq In D5%-0.45 Nacl) 20 meq in 1, 000 mls @ 125 mls/hr IVC .Q8H [facility] Stop: 03/14/18 09:46 Last Admin: 09/13/17 05:42 Dose: 125 mls/hr Ciprofloxacin Lactate (Cipro Premix 400 Mg/200 Ml) 400 mg in 200 mls @ 200 mls/ hr IVPB Q12HR [facility] Stop: 03/15/18 09:01 Last Admin: 09/13/17 11:22 Dose: 200 mls/hr Metronidazole (Flagyl Premix 500 Mg/100 Ml) 500 mg in 100 mls @ 100 mls/hr IVPB Q8HR [facility] Stop: 03/15/18 08:01 Last Admin: 09/13/17 09:17 Dose: 100 mls/hr Omeprazole (Prilosec) 20 mg PO BIDAC [facility] PRN Reason: Protocol Stop: 03/14/18 16:31 Last Admin: 09/13/17 09:16 Dose: 20 mg Ondansetron HCl (Zofran) 4 mg IVP Q8HR PRN; Protocol PRN Reason: Nausea And Vomiting Stop: 03/14/18 09:34 Oxycodone HCl (Oxycodone Oral Conc) 5 mg SL Q4H PRN; Protocol PRN Reason: Moderate Pain Stop: 03/14/18 09:34 Promethazine HCl (Phenergan) 12.5 mg IVP Q6HR PRN PRN Reason: Nausea And Vomiting Stop: 03/14/18 09:36 - Imaging and Cardiology Stress Test: report reviewed Echo: report reviewed Consult Discharge Plan - Plan Referrals: Huy Reyes DO [Primary Care Provider] -
[2017-09-13] MEDS: Metoprolol XL (24 HR) Succ 25 MG TAB.ER.24H PO SCH (13:03)
[2017-09-13] MEDS: Aspirin 81 MG TAB.CHEW PO SCH (15:36)
--- NOTE | 2017-09-13 19:20 | Anesthesia Evaluation PreOp ---
Date of Encounter: 09/13/17 Time of Encounter: 19:17 - Past History Planned Operation: Robotic Lap. Francine. Cardiac History: HTN Pulmonary History: Denies Any Significant HX COMBATANT DIVER QUALIFIED History: Denies Any Significant HX Other Medical History: Renal (stones), Other (Paraesophageal hiatal hernia, Prostate CA, right eye retinal detachment) Anesthesia History: No Prior Anesthetic Complications, Past Anesthesia ( cataracts) Alcohol Use: none Drug use: none Medications and Allergies Amlodipine Besylate 10 mg PO DAILY 09/12/17 [History] Omeprazole [PriLOSEC] 20 mg PO BIDAC 09/12/17 [History] 3 Allergy/AdvReac Type Severity Reaction Status Date / Time No Known Allergies Allergy Verified 09/12/17 09:49 - Meds/Allergy Pre-op Review Medications Reviewed: Yes Allergies Reviewed: Yes Beta Blockers on Current Med List: Yes If Beta Blockers taken, Date/Time (Last Dose taken): 13:03 09/13/17 Anesthesia Results - Labs 09/13/17 06:05 09/13/17 06:05 Echocardiogram Name: Laureano Gonzalez Date of Study: 09/12/2017 EV/EV echocardiogram Impressions: LVEF 40-45%. Mildly dilated left ventricle. Segmental left ventricular systolic dysfunction. Mild left ventricular diastolic dysfunction. Atypical septal motion consistent with bundle branch block. Normal right ventricular structure and function. Mild pulmonary hypertension. No significant valvular dysfunction. Regadenoson Nuclear Stress Name: Laureano Gonzalez Date of Study: 09/13/2017 Indications: Chest Pain Impression: Pharmacologic stress ECG is non-diagnostic for ischemia due to baseline LBBB. Gated EF = 35%. Large sized, moderate to severe intensity, fixed defect throughout the inferior, inferolateral, and apex semgments c/w a prior infarct. Perfusion imaging was negative for ischemia. - Imaging EKG: report reviewed (SINUS RHYTHM WITH OCCASIONAL VENTRICULAR PREMATURE COMPLEXES MARKED LEFT AXIS DEVIATION LEFT BUNDLE BRANCH BLOCK) Anesthesia Exam Vital Signs/O2 Sat, Most Current Temp Pulse Resp BP Pulse Ox 98.7 F 88 16 118/75 86 09/13/17 14:40 09/13/17 14:40 09/13/17 14:40 09/13/17 14:40 09/13/17 14:40 NPO (# of Hours): > 8 Hrs Pain Scale: 0 Pain Scale Used: Numeric (1 - 10) - HEENT Pupil (Motor): Pupils equal, EOMI Mallampati: II Teeth: Normal Oral Opening: Greater than 3 - COMBATANT DIVER QUALIFIED LOC: Oriented COMBATANT DIVER QUALIFIED Motor: Normal RUE, Normal LUE, Normal RLE, Normal LLE, Normal Face COMBATANT DIVER QUALIFIED Sensory: Normal: RUE, LUE, RLE, LLE, Face - Cardiac Rhythm: Regular Murmur: None JVD: No Carotid Bruit: No - Pulmonary Breath Sounds: bilateral Clear Respiratory Effort: Symmetrical Anesthesia Assess/Plan ASA Score: 3 Modified Cherie Scale for Level of Consciousness: Cooperative, oriented, and tranquil Anesthetic Plan: General Autologous Blood: Yes Monitoring Plan: Standard Monitors, A-Line (Possible) Recovery Plan: PACU
[2017-09-14] MEDS: MetroNIDAZOLE 500 MG/100 ML 500 MG/100 ML BAG IVPB SCH ×3 (01:07→16:21)
[2017-09-14 06:19] LABS: Basophils % 0.1 %; Eosinophils % 0.1 %; Hematocrit 43.5 % (37.5-50.1); Hemoglobin 14.6 g/dL (12.9-16.9); Immature Granulocytes % 1.2 % (0-4); Immature Platelets 5.9 % (1.1-6.1); Lymphocytes # 0.9 K/mcL (0.6-4.6); Lymphocytes % 4.5 %; Mean Corpuscular HGB Conc 33.6 g/dL (31.6-35.5); Mean Corpuscular Hemoglobin 31.1 pg (28.0-33.3); Mean Corpuscular Volume 92.6 fL (83.0-100.0); Monocytes # 1.2 K/mcL (0.0-1.3); Monocytes % 5.9 %; Neutrophils # 18.4 K/mcL (1.6-8.9); Platelet Count 170 K/mcL (140-400); Red Cell Distribution Width 14.1 % (11.5-14.5); Segmented Neutrophils % 88.2 %
[2017-09-14 06:25] LABS: INR 1.5; Prothrombin Time 16.7 Seconds (9.4-12.1)
[2017-09-14 06:41] LABS: Alanine Aminotransferase 31 Units/L (7-52); Albumin 2.8 g/dL (3.5-5.7); Albumin/Globulin Ratio 1.3 (1.1-2.2); Alkaline Phosphatase 77 Units/L (34-104); Aspartate Amino Transferase 19 Units/L (13-39); BUN/Creatinine Ratio 17 (6-26); Bilirubin,Direct 0.5 mg/dL (0.0-0.2); Bilirubin,Indirect 0.5 mg/dL (0.0-1.2); Blood Urea Nitrogen 16 mg/dL (8-23); Calcium 8.1 mg/dL (8.6-10.3); Carbon Dioxide 22 mEq/L (23-29); Chloride 104 mEq/L (98-107); Globulin 2.2 g/dL (2.4-3.5); Glucose 131 mg/dL (70-105); Osmolality,Calculated 275 (280-300); Sodium 131 mEq/L (136-145); eGFR For African Americans > 60 (> 60); eGFR For Non-African Americans > 60 (> 60)
[2017-09-14] MEDS ORDERED: Ondansetron 4 MG/2 ML VIAL ONE (06:55)
[2017-09-14] MEDS ORDERED: *HR* Rocuronium Bromide 50 MG/5 ML VIAL ONE (06:55)
[2017-09-14] MEDS ORDERED: Dexamethasone 4 MG/ML VIAL ONE (06:55)
[2017-09-14] MEDS ORDERED: *HR* FentaNYL (PF) 100 MCG/2 ML VIAL ONE (06:55)
[2017-09-14] MEDS ORDERED: *HR* Succinylcholine 200 MG/10 ML VIAL IVP ONE (06:55)
[2017-09-14] MEDS ORDERED: Lidocaine -MPF 4% 5 ML AMPUL ONE (06:55)
[2017-09-14] MEDS ORDERED: Lidocaine -MPF 2% 2 ML VIAL ONE (06:58)
[2017-09-14] MEDS ORDERED: Neostigmine Methylsulfate 3 MG/3 ML SYRINGE ONE (06:59)
[2017-09-14] MEDS ORDERED: EPHEDrine 50 MG/ML VIAL ONE (06:59)
[2017-09-14] MEDS: D5% in 0.45% NACL w KCl 20 MEQ/1,000 ML MLS IVC SCH ×4 (07:14→23:17)
[2017-09-14] MEDS: *HR* Enoxaparin 40 MG/0.4 ML SYRINGE SQ SCH (07:14)
[2017-09-14] MEDS ORDERED: *HR* Vasopressin 20 UNIT/ML VIAL ONE (07:37)
[2017-09-14] MEDS ORDERED: *HR* EPINEPHrine 1 MG/ML AMPUL ONE (07:42)
[2017-09-14] MEDS ORDERED: *HR* Etomidate 40 MG/20 ML VIAL IVP ONE (07:44)
[2017-09-14] MEDS ORDERED: *HR* OxyCODONE Immed Rel 5 MG TABLET PO PRN (08:40)
[2017-09-14] MEDS ORDERED: MORPHINE SUL Oral CONC 10 MG/0.5 ML ORAL.SYG SL PRN (08:40)
[2017-09-14] MEDS ORDERED: *HR* Labetalol 20 MG/4 ML SYRINGE IVP PRN (08:40)
[2017-09-14] MEDS: Metoprolol XL (24 HR) Succ 25 MG TAB.ER.24H PO SCH (09:00)
[2017-09-14] MEDS: Aspirin 81 MG TAB.CHEW PO SCH (09:00)
[2017-09-14] MEDS ORDERED: Ringers Solution, Lactated 1,000 ML ONE (11:06)
--- NOTE | 2017-09-14 18:09 | Anesthesia Evaluation Post Op ---
Date of Encounter: 09/14/17 Time of Encounter: 08:42 Notes: Patient's vital signs have been reviewed. Patient is stable postoperatively and has adequately recovered from anesthesia. Patient is determined to have stable airway patency and respiratory function including respiratory rate and oxygen saturation. Patient has a stable heart rate, blood pressure and adequate hydration. Patients mental status is acceptable. Patients temperature is appropriate. Pain and nausea are adequately controlled. - Discharge PostOp Status: Transfer Patient to floor
[2017-09-14 18:45] LABS: Bilirubin,Direct 0.4 mg/dL (0.0-0.2); Bilirubin,Indirect 0.5 mg/dL (0.0-1.2); Bilirubin,Total 0.9 mg/dL (0.3-1.0)
--- NOTE | 2017-09-14 19:38 | Operative Note ---
Date of procedure: 09/14/17 Pre-op diagnosis: acute cholecystitis Post-op diagnosis: other (gangrenous cholecystitis) Procedure: robotic cholecystectomy with ICG intraoperative cholangiogram Implants: 19F ariadna drain in liver bed Complications: none Anesthesia: GETA Local Anesthetics: 0.5% Sensorcaine HCL SubQ (cc) Surgeon: Osmin Radford Was there an specimen preparation assistant present: Yes Voice Instructor: Jennifer Hoang Estimated blood loss (cc): 100 Specimen: gallbladder and contents Condition: stable Disposition: PACU Procedure in Detail: The patient was brought into the operating room suite and was placed in the supine position. Mechanical DVT prophylaxis was applied. A time-in was conducted. The patient underwent smooth induction of anesthesia. Preoperative antibiotics were given. The patient was prepped and draped in the usual fashion. A time-out was held identifying the correct patient, pathology, and procedure. Everyone was in agreement and we began the procedure. Prior to beginning I did inject 2cc of ICG. Incision to Dissection I started by creating a 12mm supraumbilical incision. Via open Gianna technique I did enter into the abdomen. I inserted the 12mm trocar followed by the 30 degree camera, ensured that I did not cause intraabdominal injury upon entry, and quickly identified the gallbladder. It was clearly gangrenous with necrotic wall. I created a 5mm incisions one handbreadth to the left and right of the umbilical incision and an specimen preparation assistant port along the R anterior axillary line. I then docked the robot in the usual fashion. Using laparoscopic graspers I managed to elevate the gallbladder above the liver. At the Console I grasp the edge of the gallbladder to retract laterally. it should be stated that I also decompressed the gallbladder because it was difficult to grasp. In addiition, it was difficult to maintain because the lower half of the gallbladder wall was necrotic, friable, and hard to hold with the graspers. Using the caudier graspers and the hook-electrocautery, I dissected out the cystic duct and the cystic artery. It should be stated that due tot he amount of inflammation, there was a thick gallbladder wall to dissect through, as well as lots of inflammed, friable tissue before I was able to appreciate the cystic duct. In addition I utilized the firefly function to identify the common bile duct, prior to clipping the cystic duct. I excised the posterior tissue to visualize the liver. I was able to clearly visualize the critical view of safety. Critical view of Safety to Excison of the gallbladder I then clipped both structures using plastic clips, two on the stay side, one on the specimen side. Using robotic scissors, I cut between the clip on the specimen side and the first clip on the stay side. Then using tension and counter-tension, I used the electrocautery to excise the gallbladder off of the liver bed. It is worht mentioning that with little retraction, the gallbladder literally peeled off the liver bed. Another testament to how necrotic the organ was. Before complete excision, I evaluated the liver bed to ensure there 1.) there was no bleeding, 2. No excessive bile leakage, and 3.) to evaluate my clips. There was no bleeding, bile leakage, and the clips were all the way across both duct and artery. I then placed a 19F ariadna drain under the liver bed. Removal of gallbladder to Closure After undocking the robot, I inserted the endocatch bag into the umbilical port. I placed the specimen into the bag and retrieved it through the umbilical port. i then irrgiated the liver bed and above the liver before suctioning both irrigation fluid and air. I removed the 5mm ports, turned off the insufllation, then removed the 12mm umbilical port. I then close the umbilical fascia a vicryl suture in a figure of 8 fashion. All incisions were closed with skin stapler. The patient tolerated the procedure well and went back to PACU in stable condition.
[2017-09-15] MEDS: MetroNIDAZOLE 500 MG/100 ML 500 MG/100 ML BAG IVPB SCH ×4 (01:10→23:53)
--- NOTE | 2017-09-15 05:51 | General Surgery Progress Note ---
Date of Encounter: 09/15/17 Time of Encounter: 05:49 - Assessment and Plan (1) Cholecystitis Current Visit: Yes Status: Acute POD#1 s/p robotic tabitha with iCG IOC; tolerating sips of clears; oxygen levels were reportedly low; appear to be at baseline advance diet; okay for oatmeal this morning cont abx regimen activity as tolerated wean oxygen mask cont to monitor patient at present; family would like patient to stay another evening; need to teach how to manage drain Subjective Patient reports: no new complaints, feels better, tolerating liquids well, afebrile Objective Vital Signs - Last 8 Hours Temp Pulse Resp BP Pulse Ox 09/15/17 04:21 98.8 F 89 20 128/76 90 09/14/17 23:30 98.8 F 88 20 122/84 91 Intake and Output 09/14/17 09/14/17 09/15/17 15:59 23:59 07:59 Intake Total 100 / 100 1300 / 1300 0 / 0 Output Total 437 / 437 330 / 330 300 / 300 Balance -337 / -337 970 / 970 -300 / -300 Intake: IV Fluids 100 / 100 1300 / 1300 KCl 20mEq IN D5%-0.45 NACL 20 1000 / 1000 meq In 1,000 ml @ 125 mls/hr IVC .Q8H [facility] Rx#:[id number] Cipro Premix 400 MG/200 ML 400 200 / 200 mg In 200 ml @ 200 mls/hr IVPB Q12HR [facility] Rx#:[id number] Flagyl Premix 500 MG/100 ML 500 100 / 100 100 / 100 mg In 100 ml @ 100 mls/hr IVPB Q8HR [facility] Rx#:[id number] Oral 0 / 0 0 / 0 0 / 0 Output: Urine 300 / 300 300 / 300 300 / 300 Estimated Blood Loss 100 / 100 Wound Drainage 37 / 37 30 / 30 Right side abdomen 27 / 27 30 / 30 Other: Meal Lunch Percent of Meal Consumed 0% Weight 91.7 kg Blood Glucose* 143 163 Patient Weight 09/15/17 23:59 Weight 91.7 kg - General physical appearance no distress - Respiratory normal expansion, normal respiratory effort - Abdomen Abdomen: Present: soft, non tender - Incision Incision: Present: clean and dry, intact - Neurologic CN 2-12 grossly intact - Labs 09/14/17 05:52 09/14/17 05:52 Adrenal panel 09/14/17 Range/Units 18:05 Total Bilirubin 0.9 (0.3-1.0) mg/dL - VTE Documentation of Mechanical Device: Intermittent pneumatic compression device Consult Discharge Plan - Plan Referrals: Huy Reyes DO [Primary Care Provider] -
[2017-09-15] MEDS: *HR* Enoxaparin 40 MG/0.4 ML SYRINGE SQ SCH (07:06)
[2017-09-15] MEDS: Metoprolol XL (24 HR) Succ 25 MG TAB.ER.24H PO SCH (09:58)
[2017-09-15] MEDS: Aspirin 81 MG TAB.CHEW PO SCH (09:59)
[2017-09-15] MEDS: D5% in 0.45% NACL w KCl 20 MEQ/1,000 ML MLS IVC SCH (10:05)
[2017-09-15] MEDS ORDERED: Furosemide 40 MG/4 ML VIAL IVP ONE (10:49)
[2017-09-15] MEDS ORDERED: Acetaminophen IV 1,000 MG/100 ML INFUS..BTL IVPB ONE (10:50)
--- NOTE | 2017-09-15 10:59 | Event Note ---
Date of Encounter: 09/15/17 Time of Encounter: 10:30 Rounded on patient. Noted O2 per NC at 4L. Denies O2 use at home. 1-2+ pitting edema in the BLE and crackles in the bases. Will d/c IVf and treat with IV lasix x1 dose for suspected fluid overload vs CHF given his new findings of reduced EF. BMP, BNP, CXR, and RT ordered. Will continue to monitor. stated some confusion on Tuesday that has resolved. Noted hyponatremia. will continue to monitor. Advance to FLD I did assist the patient to stand at bedside and sit in the chair. He is a little weak. will order PT and OT for generalized deconditioning. Will consult RT for aggressive pulmonary toileting, Wean O2 is tolerated, and aggressive pulmonary toileting
[2017-09-15 11:35] LABS: Basophils % 0.2 %; Hematocrit 45.5 % (37.5-50.1); Hemoglobin 15.2 g/dL (12.9-16.9); Immature Granulocytes % 0.9 % (0-4); Lymphocytes % 5.4 %; Mean Corpuscular HGB Conc 33.4 g/dL (31.6-35.5); Mean Corpuscular Hemoglobin 30.9 pg (28.0-33.3); Mean Corpuscular Volume 92.5 fL (83.0-100.0); Mean Platelet Volume 10.6 fL (9.4-12.4); Monocytes # 1.7 K/mcL (0.0-1.3); Monocytes % 9.1 %; Neutrophils # 15.7 K/mcL (1.6-8.9); Platelet Count 205 K/mcL (140-400); Red Blood Count 4.92 M/mcL (4.19-5.50); Red Cell Distribution Width 14.3 % (11.5-14.5); Segmented Neutrophils % 84.4 %
[2017-09-15] MEDS: Ipratropium/Albuterol Neb 3 ML IH SCH ×4 (11:35→23:10)
[2017-09-15 12:08] LABS: Alanine Aminotransferase 95 Units/L (7-52); Albumin 3.2 g/dL (3.5-5.7); Albumin/Globulin Ratio 1.2 (1.1-2.2); Alkaline Phosphatase 91 Units/L (34-104); Aspartate Amino Transferase 69 Units/L (13-39); BUN/Creatinine Ratio 15 (6-26); Bilirubin,Direct 0.3 mg/dL (0.0-0.2); Bilirubin,Indirect 0.6 mg/dL (0.0-1.2); Bilirubin,Total 0.9 mg/dL (0.3-1.0); Blood Urea Nitrogen 13 mg/dL (8-23); Calcium 8.4 mg/dL (8.6-10.3); Carbon Dioxide 21 mEq/L (23-29); Chloride 103 mEq/L (98-107); Globulin 2.7 g/dL (2.4-3.5); Glucose 121 mg/dL (70-105); Osmolality,Calculated 273 (280-300); Potassium 4.9 mEq/L (3.5-5.1); Sodium 131 mEq/L (136-145); Total Protein 5.9 g/dL (6.4-8.9); eGFR For African Americans > 60 (> 60); eGFR For Non-African Americans > 60 (> 60)
[2017-09-16] MEDS: Ipratropium/Albuterol Neb 3 ML IH SCH ×6 (03:34→23:42)
[2017-09-16] MEDS: *HR* Enoxaparin 40 MG/0.4 ML SYRINGE SQ SCH (05:38)
[2017-09-16 05:57] LABS: Basophils # 0.1 K/mcL (0.0-0.2); Basophils % 0.3 %; Eosinophils % 0.2 %; Hematocrit 44.8 % (37.5-50.1); Hemoglobin 15.3 g/dL (12.9-16.9); Immature Granulocytes % 1.4 % (0-4); Lymphocytes # 1.4 K/mcL (0.6-4.6); Lymphocytes % 7.5 %; Mean Corpuscular HGB Conc 34.2 g/dL (31.6-35.5); Mean Corpuscular Hemoglobin 31.3 pg (28.0-33.3); Mean Corpuscular Volume 91.6 fL (83.0-100.0); Mean Platelet Volume 10.8 fL (9.4-12.4); Monocytes # 1.9 K/mcL (0.0-1.3); Monocytes % 10.3 %; Neutrophils # 14.7 K/mcL (1.6-8.9); Platelet Count 230 K/mcL (140-400); Red Blood Count 4.89 M/mcL (4.19-5.50); Red Cell Distribution Width 14.2 % (11.5-14.5); Segmented Neutrophils % 80.3 %
[2017-09-16 07:48] LABS: Alanine Aminotransferase 81 Units/L (7-52); Albumin 2.7 g/dL (3.5-5.7); Albumin/Globulin Ratio 1.1 (1.1-2.2); Alkaline Phosphatase 85 Units/L (34-104); Aspartate Amino Transferase 63 Units/L (13-39); BUN/Creatinine Ratio 16 (6-26); Bilirubin,Direct 0.4 mg/dL (0.0-0.2); Bilirubin,Indirect 0.4 mg/dL (0.0-1.2); Bilirubin,Total 0.8 mg/dL (0.3-1.0); Blood Urea Nitrogen 14 mg/dL (8-23); Calcium 8.1 mg/dL (8.6-10.3); Carbon Dioxide 21 mEq/L (23-29); Chloride 103 mEq/L (98-107); Globulin 2.4 g/dL (2.4-3.5); Glucose 133 mg/dL (70-105); Osmolality,Calculated 276 (280-300); Potassium 3.6 mEq/L (3.5-5.1); Sodium 132 mEq/L (136-145); Total Protein 5.1 g/dL (6.4-8.9); eGFR For African Americans > 60 (> 60); eGFR For Non-African Americans > 60 (> 60)
[2017-09-16] MEDS: MetroNIDAZOLE 500 MG/100 ML 500 MG/100 ML BAG IVPB SCH ×3 (08:38→23:38)
[2017-09-16] MEDS: Metoprolol XL (24 HR) Succ 25 MG TAB.ER.24H PO SCH (08:38)
[2017-09-16] MEDS: Aspirin 81 MG TAB.CHEW PO SCH (08:38)
[2017-09-16] MEDS ORDERED: Furosemide 40 MG/4 ML VIAL IVP ONE (12:37)
--- NOTE | 2017-09-16 13:10 | General Surgery Progress Note ---
<Gillian Greco Gayatri - Last Filed: 09/16/17 13:14> Date of Encounter: 09/16/17 Time of Encounter: 12:00 - Assessment and Plan (1) Cholecystitis Current Visit: Yes Status: Acute Date of procedure: 09/14/17 Pre-op diagnosis: acute cholecystitis Post-op diagnosis: other (gangrenous cholecystitis) Procedure: robotic cholecystectomy with ICG intraoperative cholangiogram Implants: 19F ariadna drain in liver bed Complications: none POD#2 as above. Abdominal discomfort is overall controlled. His ARCHANA is with less than 100 ML SS drainage daily. He is on IV Cipro Flagyl. White blood cell count is down trending but remains elevated. LFT in bilirubin remain elevated but are downtrending. Plan: continue supportive care and discomfort management regular diet with protein supplements continue G.I. and DVT prophylaxis ambulate and halls TID out of bed to chair for all trays Continue hospital care (2) Acute systolic heart failure Current Visit: Yes Status: Acute CHF (pleural effusions, elevated BNP, SOB, increased O2 requirement) Repeat CXR Wilson Diuresis (40 mg lasix yesterday and today), no MIV infusing (stopped 2017 in the am) Accurate I&O and daily standing scale weights Recall cardiology for diuresis recommendations (home meds vs continued acute diuresis) qualify for home 02 (3) Acute urinary retention Current Visit: Yes Status: Acute Start Flomax insert Wilson catheter, consideration given to DC with Wilson catheter strict intake and output measurement repeat UA with reflux to culture (4) Paraesophageal hiatal hernia Current Visit: Yes Status: Acute Paraesophageal hernia vs sliding hiatal hernia (per radiology read the GE junction is in the appropriate location). Regardless, this does not seem to be the cause of his current acute issues; however, will require follow-up for intervention. (5) Abnormal CT of the abdomen Current Visit: Yes Status: Acute Atherosclerosis, nephrolithiasis, stable bilateral renal cysts, renal cortical scarring, stable hepatic cysts, bilateral common iliac artery aneurysms Follow-up with PCP at d/c CT/CT angio abdomen pelvis IMPRESSION: 1. Unremarkable CTA appearance of the aorta, without evidence of aneurysm or dissection. 2. No CT evidence of a pulmonary embolism. 3. Dependent atelectasis within the bilateral lungs, without acute intrapulmonary findings. 4. Bilateral nonobstructing nephrolithiasis, with an additional layering calculus within the urinary bladder. However, there is no evidence of a ureteral calculus or hydronephrosis. 5. Stable bilateral renal cysts with left renal cortical scarring. 6. Cholelithiasis. 7. Stable hepatic cysts. 8. Stable large hiatal hernia. 9. Mild bilateral common iliac artery aneurysms. Subjective Patient reports: still having pain, pain is less, flatus, bowel movement, shortness of breath, afebrile Narrative: PT states he is having difficulty urinating. He feels as though he needs to urinate but he cannot. He states lower abdominal discomfort. He denies burning with urination. States his abdominal discomfort is overall controlled. He remains feeling short of breath with activity. Objective Vital Signs - Last 8 Hours Temp Pulse Resp BP Pulse Ox 09/16/17 11:20 16 90 09/16/17 10:41 98.0 F 80 16 106/68 91 09/16/17 07:32 16 91 09/16/17 06:27 97.7 F 119 15 101/65 91 Intake and Output 09/15/17 09/16/17 09/16/17 23:59 07:59 15:59 Intake Total 420 / 420 100 / 100 660 / 660 Output Total 650 / 650 25 / 25 20 / 20 Balance -230 / -230 75 / 75 640 / 640 Intake: IV Fluids 300 / 300 100 / 100 300 / 300 Cipro Premix 400 MG/200 ML 400 200 / 200 200 / 200 mg In 200 ml @ 200 mls/hr IVPB Q12HR [facility] Rx#:[id number] Flagyl Premix 500 MG/100 ML 500 100 / 100 100 / 100 100 / 100 mg In 100 ml @ 100 mls/hr IVPB Q8HR [facility] Rx#:[id number] Oral 120 / 120 0 / 0 360 / 360 Output: Urine 650 / 650 25 / 25 Wound Drainage / Right side abdomen Other: Meal Dinner Breakfast Percent of Meal Consumed 0% 0% # Voids 1 VITAL SIGNS: Reviewed. See [facility] GENERAL: In no apparent distress. HEENT: Normocephalic, atraumatic, pupils are equal and reactive, extraocular motions intact, oropharynx is pink and moist, there is no neck adenopathy or JVD noted. CHEST/RESPIRATORY: The thorax is free from signs of trauma. Lung sounds: Decreased, crackles BL. Noted continued increase oxygen demand (3.5 L nasal cannula sating approximately 90%) CARDIAC: Regular rate and rhythm. Normal S1 and S2, Systolic murmur noted. No gallops, or rubs. VASCULAR: pitting Edema. 2+ peripheral pulses. ABDOMEN: soft, expected postoperative tenderness, active bowel sounds. Bladder scan greater than 600 pre-void, 541 Post void. INCISION: Surgical incision is clean, dry, and intact. There are no signs of cellulitis or infection noted. WOUNDS/DRAINS: right lower quadrant ARCHANA drain within normal limits. MUSCULOSKELETAL: Good range of motion of all major joints. Extremities without clubbing, cyanosis or edema. NEUROLOGIC EXAM: Alert and oriented x 3. Speech normal. Follows commands. PSYCHIATRIC: Mood normal. SKIN: No rash or lesions. - Labs 09/16/17 03:56 09/16/17 07:08 Diabetes panel 09/16/17 Range/Units 07:08 Sodium 132 L (136-145) mEq/L Potassium 3.6 D (3.5-5.1) mEq/L Chloride 103 (98-107) mEq/L Carbon Dioxide 21 L (23-29) mEq/L BUN 14 (8-23) mg/dL Creatinine 0.87 (0.70-1.30) mg/dL Glucose 133 H (70-105) mg/dL Calcium 8.1 L (8.6-10.3) mg/dL AST 63 H (13-39) Units/L ALT 81 H (7-52) Units/L Alkaline Phosphatase 85 (34-104) Units/L Albumin 2.7 L (3.5-5.7) g/dL Calcium panel 09/16/17 Range/Units 07:08 Calcium 8.1 L (8.6-10.3) mg/dL Albumin 2.7 L (3.5-5.7) g/dL Pituitary panel 09/16/17 Range/Units 07:08 Sodium 132 L (136-145) mEq/L Potassium 3.6 D (3.5-5.1) mEq/L Chloride 103 (98-107) mEq/L Carbon Dioxide 21 L (23-29) mEq/L BUN 14 (8-23) mg/dL Creatinine 0.87 (0.70-1.30) mg/dL Glucose 133 H (70-105) mg/dL Calcium 8.1 L (8.6-10.3) mg/dL Adrenal panel 09/16/17 Range/Units 07:08 Sodium 132 L (136-145) mEq/L Potassium 3.6 D (3.5-5.1) mEq/L Chloride 103 (98-107) mEq/L Carbon Dioxide 21 L (23-29) mEq/L BUN 14 (8-23) mg/dL Creatinine 0.87 (0.70-1.30) mg/dL Glucose 133 H (70-105) mg/dL Calcium 8.1 L (8.6-10.3) mg/dL Total Bilirubin 0.8 (0.3-1.0) mg/dL AST 63 H (13-39) Units/L ALT 81 H (7-52) Units/L Alkaline Phosphatase 85 (34-104) Units/L Albumin 2.7 L (3.5-5.7) g/dL - VTE Documentation of Mechanical Device: Intermittent pneumatic compression device Consult Discharge Plan - Plan Referrals: Huy Reyes DO [Primary Care Provider] - <Osmin Radford - Last Filed: 09/16/17 14:18> Date of Encounter: 09/16/17 - Assessment and Plan (1) Cholecystitis Current Visit: Yes Status: Acute Objective Vital Signs - Last 8 Hours Temp Pulse Resp BP Pulse Ox 09/16/17 11:20 16 90 09/16/17 10:41 98.0 F 80 16 106/68 91 09/16/17 07:32 16 91 09/16/17 06:27 97.7 F 119 15 101/65 91 Intake and Output 09/15/17 09/16/17 09/16/17 23:59 07:59 15:59 Intake Total 420 / 420 100 / 100 900 / 900 Output Total 650 / 650 25 / 25 470 / 470 Balance -230 / -230 75 / 75 430 / 430 Intake: IV Fluids 300 / 300 100 / 100 300 / 300 Cipro Premix 400 MG/200 ML 400 200 / 200 200 / 200 mg In 200 ml @ 200 mls/hr IVPB Q12HR [facility] Rx#:[id number] Flagyl Premix 500 MG/100 ML 500 100 / 100 100 / 100 100 / 100 mg In 100 ml @ 100 mls/hr IVPB Q8HR [facility] Rx#:[id number] Oral 120 / 120 0 / 0 600 / 600 Output: Urine 650 / 650 25 / 25 Catheter 450 / 450 Urethral (Wilson) 450 / 450 Wound Drainage 20 / Right side abdomen Other: Meal Dinner Lunch Percent of Meal Consumed 0% 100% # Voids 1 - Labs 09/16/17 03:56 09/16/17 07:08 Diabetes panel 09/16/17 Range/Units 07:08 Sodium 132 L (136-145) mEq/L Potassium 3.6 D (3.5-5.1) mEq/L Chloride 103 (98-107) mEq/L Carbon Dioxide 21 L (23-29) mEq/L BUN 14 (8-23) mg/dL Creatinine 0.87 (0.70-1.30) mg/dL Glucose 133 H (70-105) mg/dL Calcium 8.1 L (8.6-10.3) mg/dL AST 63 H (13-39) Units/L ALT 81 H (7-52) Units/L Alkaline Phosphatase 85 (34-104) Units/L Albumin 2.7 L (3.5-5.7) g/dL Calcium panel 09/16/17 Range/Units 07:08 Calcium 8.1 L (8.6-10.3) mg/dL Albumin 2.7 L (3.5-5.7) g/dL Pituitary panel 09/16/17 Range/Units 07:08 Sodium 132 L (136-145) mEq/L Potassium 3.6 D (3.5-5.1) mEq/L Chloride 103 (98-107) mEq/L Carbon Dioxide 21 L (23-29) mEq/L BUN 14 (8-23) mg/dL Creatinine 0.87 (0.70-1.30) mg/dL Glucose 133 H (70-105) mg/dL Calcium 8.1 L (8.6-10.3) mg/dL Adrenal panel 09/16/17 Range/Units 07:08 Sodium 132 L (136-145) mEq/L Potassium 3.6 D (3.5-5.1) mEq/L Chloride 103 (98-107) mEq/L Carbon Dioxide 21 L (23-29) mEq/L BUN 14 (8-23) mg/dL Creatinine 0.87 (0.70-1.30) mg/dL Glucose 133 H (70-105) mg/dL Calcium 8.1 L (8.6-10.3) mg/dL Total Bilirubin 0.8 (0.3-1.0) mg/dL AST 63 H (13-39) Units/L ALT 81 H (7-52) Units/L Alkaline Phosphatase 85 (34-104) Units/L Albumin 2.7 L (3.5-5.7) g/dL - Attending Attestation patient seen and examined; i have reviewed all labs and documentation; i agree with the above assessment and plan and wish to add the following... encouraged ambulation as per usual at home; diet as tolerated; plan for transition to PO abx in AM likely home in AM
[2017-09-16 14:05] LABS: Bilirubin,Urine Negative (Negative); Blood,Urine Negative (Negative); Clarity,Urine Clear (Clear); Color,Urine Dark Yellow (Yellow); Glucose,Urine (UA) Normal (Normal); Ketones,Urine Negative (Negative); Leukocyte Esterase,Urine Trace (Negative); Nitrite,Urine Negative (Negative); Protein,Urine Negative (Neg-Trace); Specific Gravity,Urine 1.017 (1.010-1.025); Urobilinogen,Urine Normal (Normal)
[2017-09-16 14:06] LABS: Bacteria,Urine None Seen per hpf (None-Few); Hyaline Casts,Urine None Seen per lpf (None-Few); Squamous Epithelial Cell,Urine Moderate per lpf (None-Few); WBC,Urine 0-3 per hpf (0-3)
--- NOTE | 2017-09-16 14:17 | Cardiology Progress Note ---
Date of Encounter: 09/16/17 Time of Encounter: 14:00 Assessment and Plan (1) Cardiomyopathy Current Visit: Yes Status: Acute TTE LVEF 40-45%. Mildly dilated left ventricle. Segmental left ventricular systolic dysfunction. Mild left ventricular diastolic dysfunction. Atypical septal motion consistent with bundle branch block. Normal right ventricular structure and function. Mild pulmonary hypertension. No significant valvular dysfunction. Pharmacologic nuclear stress test: Gated EF 35%. Evidence of prior infarct, negative for ischemia. Suspect ICMP given findings. Pt euvolemic, no acute complaints. Reconsult 09/16/17 for CHF. Clinically appears euvolemic upon exam. No shortness of breath or difficulty breathing reported. No overt edema noted. CXR today shows increasing small to moderate left pleural effusion with stable right pleural effusion. BNP only mildly, elevated 389. Cumulative I&O: +5858 mL; agree with ordered Lasix. Emphasized the importance of proper use of Incentive spirometry, of note, after use SPO2 increased to >92% (was 86% prior). Strict I&O's, daily weights. Lemus cath inserted d/t urinary retention today. Will continue to follow. Qualifiers: Cardiomyopathy type: unspecified Qualified Code(s): I42.9 - Cardiomyopathy , unspecified (2) Abnormal stress test Current Visit: Yes Status: Acute Pharmacologic nuclear stress test: Gated EF 35%. Large sized, moderate to severe intensity, fixed defect throughout the inferior, inferolateral, and apex segments consistent with prior infarct. Perfusion imaging was negative for ischemia. Frequent PVCs prior to exam beginning. 4 beat NSVT during stress. No known prior cardiac hx. Negative for ischemia. Pt is functional and asymptomatic from a cardiac standpoint. Recommend outpt follow-up in 2-3 weeks to re-evaluate and discuss outpt [facility]. Pt and agreeable to plan. No chest pain reported. No post-operative complications reported. Continue asa, statin, BB. (3) NSVT (nonsustained ventricular tachycardia) Current Visit: Yes Status: Acute Frequent PVCs prior to beginning stress test. 4 beat NSVT during stress. CMP EF 40-45% on TTE. Discussed with Dr. Bullock. Add Toprol XL 12.5mg daily. Order for pt to be on telemetry for close monitoring--pt. still not on telemetry , will re-order now. Discussion w patient/family: The assessment and plan as outlined above was discussed with the patient and/or family members who expressed understanding and agreement. All questions were answered. Thank you for involving us in the care of your patient. Please call with any questions. The patient will be discussed and reviewed with Dr. Melchor; changes to be made accordingly. Subjective Principal diagnosis: CHF, s/p lap tabitha Interval history: Seen and examined. Sitting up in bedside chair. Reports recent lemus cath insertion due to urinary retention--jennifer urine observed in catheter bag/tubing. Denies shortness of breath/orthopnea. No chest pain reported. Objective Vital Signs, Last 4 Hours Temp Pulse Resp BP Pulse Ox 09/16/17 11:20 16 90 09/16/17 10:41 98.0 F 80 16 106/68 91 General: Conversant, No Apparent Distress HEENT: Atraumatic, Normocephaly, Mucus Membranes Moist Cardiac: Reg Rate and Rhythm, Normal S1 and S2 Lungs: Other (Decreased bibasilar) Neuro: Alert and responsive Abdomen: Soft Skin: No rashes noted on visualized skin Musculoskeletal: No Chest Wall Tenderness Extremities: No Edema, Normal Pulses Other: Lemus bag--jennifer Results 09/16/17 03:56 09/16/17 07:08 Lab Results 09/16/17 09/16/17 03:56 07:08 WBC 18.3 H Hgb 15.3 Hct 44.8 Plt Count 230 Sodium 132 L Potassium 3.6 D Chloride 103 Carbon Dioxide 21 L BUN 14 Creatinine 0.87 Glucose 133 H Calcium 8.1 L Total Bilirubin 0.8 AST 63 H ALT 81 H Alkaline Phosphatase 85 Active Medications Albuterol/Ipratropium (Duoneb) 3 ml IH [id number] [facility] Stop: 03/17/18 12:01 Last Admin: 09/16/17 11:20 Dose: 3 ml Aspirin (Aspirin) 81 mg PO DAILY [facility] Stop: 03/15/18 13:16 Last Admin: 09/16/17 08:38 Dose: 81 mg Atorvastatin Calcium (Lipitor) 40 mg PO HS [facility] Stop: 03/15/18 21:01 Last Admin: 09/15/17 22:11 Dose: 40 mg Enoxaparin Sodium (Lovenox) 40 mg SQ 0600 [facility] PRN Reason: Protocol Stop: 03/14/18 09:36 Last Admin: 09/16/17 05:38 Dose: 40 mg Hydralazine HCl (Hydralazine) 10 mg IVP Q6HR PRN PRN Reason: Hypertension Stop: 03/14/18 09:36 Ciprofloxacin Lactate (Cipro Premix 400 Mg/200 Ml) 400 mg in 200 mls @ 200 mls/ hr IVPB Q12HR [facility] Stop: 03/15/18 09:01 Last Infusion: 09/16/17 08:39 Dose: Infused Metronidazole (Flagyl Premix 500 Mg/100 Ml) 500 mg in 100 mls @ 100 mls/hr IVPB Q8HR [facility] Stop: 03/15/18 08:01 Last Infusion: 09/16/17 12:25 Dose: Infused Lisinopril (Zestril) 2.5 mg PO DAILY [facility] PRN Reason: Protocol Stop: 03/16/18 09:01 Last Admin: 09/16/17 08:39 Dose: Not Given Metoprolol Succinate (Toprol Xl) 12.5 mg PO DAILY [facility] Stop: 03/15/18 12:31 Last Admin: 09/16/17 08:38 Dose: Not Given Omeprazole (Prilosec) 20 mg PO BIDAC [facility] PRN Reason: Protocol Stop: 03/14/18 16:31 Last Admin: 09/16/17 08:38 Dose: 20 mg Ondansetron HCl (Zofran) 4 mg IVP Q8HR PRN; Protocol PRN Reason: Nausea And Vomiting Stop: 03/14/18 09:34 Oxycodone HCl (Oxycodone Oral Conc) 5 mg SL Q4H PRN; Protocol PRN Reason: Moderate Pain Stop: 03/14/18 09:34 Polyethylene Glycol (Miralax) 17 gm PO DAILY [facility] Stop: 03/18/18 13:36 Promethazine HCl (Phenergan) 12.5 mg IVP Q6HR PRN PRN Reason: Nausea And Vomiting Stop: 03/14/18 09:36 Tamsulosin HCl (Flomax) 0.4 mg PO DAILY [facility] PRN Reason: Protocol Stop: 03/18/18 12:46 Last Admin: 09/16/17 14:08 Dose: 0.4 mg - Imaging and Cardiology Stress Test: report reviewed Echo: report reviewed Other Results: Pt. not on telemetry - EKG Interpretation EKG results cardiology: personally reviewed - VTE Documentation of Mechanical Device: Intermittent pneumatic compression device Consult Discharge Plan - Plan Referrals: Huy Reyes DO [Primary Care Provider] -
[2017-09-16] MEDS ORDERED: Furosemide 20 MG/2 ML VIAL IVP ONE (18:30)
[2017-09-17] MEDS: Ipratropium/Albuterol Neb 3 ML IH SCH ×6 (03:42→23:04)
[2017-09-17 04:58] LABS: Alanine Aminotransferase 76 Units/L (7-52); Albumin 2.8 g/dL (3.5-5.7); Albumin/Globulin Ratio 1.2 (1.1-2.2); Alkaline Phosphatase 87 Units/L (34-104); Aspartate Amino Transferase 64 Units/L (13-39); BUN/Creatinine Ratio 15 (6-26); Bilirubin,Direct 0.2 mg/dL (0.0-0.2); Bilirubin,Indirect 0.8 mg/dL (0.0-1.2); Blood Urea Nitrogen 15 mg/dL (8-23); Calcium 8.1 mg/dL (8.6-10.3); Carbon Dioxide 22 mEq/L (23-29); Chloride 103 mEq/L (98-107); Globulin 2.4 g/dL (2.4-3.5); Glucose 116 mg/dL (70-105); Osmolality,Calculated 280 (280-300); Sodium 134 mEq/L (136-145); Total Protein 5.2 g/dL (6.4-8.9); eGFR For African Americans > 60 (> 60); eGFR For Non-African Americans > 60 (> 60)
[2017-09-17 05:13] LABS: Basophils # 0.1 K/mcL (0.0-0.2); Basophils % 0.6 %; Eosinophils # 0.2 K/mcL (0.0-0.6); Hematocrit 40.3 % (37.5-50.1); Hemoglobin 14.2 g/dL (12.9-16.9); Immature Granulocytes % 3.9 % (0-4); Lymphocytes # 1.7 K/mcL (0.6-4.6); Lymphocytes % 10.5 %; Mean Corpuscular HGB Conc 35.2 g/dL (31.6-35.5); Mean Corpuscular Hemoglobin 31.7 pg (28.0-33.3); Mean Platelet Volume 10.4 fL (9.4-12.4); Monocytes # 1.7 K/mcL (0.0-1.3); Monocytes % 10.7 %; Neutrophils # 11.5 K/mcL (1.6-8.9); Platelet Count 207 K/mcL (140-400); Red Blood Count 4.48 M/mcL (4.19-5.50); Red Cell Distribution Width 14.3 % (11.5-14.5); Segmented Neutrophils % 73.3 %
[2017-09-17] MEDS: *HR* Enoxaparin 40 MG/0.4 ML SYRINGE SQ SCH (06:01)
[2017-09-17 06:06] LABS: Platelet Estimate Normal (Normal); Reactive Lymphocytes Present (Not Present)
[2017-09-17] MEDS: MetroNIDAZOLE 500 MG/100 ML 500 MG/100 ML BAG IVPB SCH ×2 (07:26→15:43)
[2017-09-17] MEDS: Aspirin 81 MG TAB.CHEW PO SCH (07:28)
[2017-09-17] MEDS: Metoprolol XL (24 HR) Succ 25 MG TAB.ER.24H PO SCH (07:29)
[2017-09-17] MEDS: Levofloxacin 750 MG/150 ML 750 MG/150 ML BAG IVPB SCH (08:30)
--- NOTE | 2017-09-17 10:13 | Cardiology Progress Note ---
Date of Encounter: 09/17/17 Time of Encounter: 09:40 Assessment and Plan (1) Cardiomyopathy Current Visit: Yes Status: Acute TTE LVEF 40-45%. Mildly dilated left ventricle. Segmental left ventricular systolic dysfunction. Mild left ventricular diastolic dysfunction. Atypical septal motion consistent with bundle branch block. Normal right ventricular structure and function. Mild pulmonary hypertension. No significant valvular dysfunction. Pharmacologic nuclear stress test: Gated EF 35%. Evidence of prior infarct, negative for ischemia. Suspect ICMP given findings. Pt euvolemic, no acute complaints. Reconsult 09/16/17 for CHF. Clinically appears euvolemic upon exam. No shortness of breath or difficulty breathing reported. No overt edema noted. CXR 09/16 shows increasing small to moderate left pleural effusion with stable right pleural effusion. BNP only mildly, elevated 389. CT chest 09/16: right small to moderate pleural effusions with extensive right lower lobe consolidations most indicative of pnuemonia--recommend consulting Hospitalist service for further mgmt. Of note, CT also shows possible abscess or hematoma near ARCHANA drain tip--defer further mgmt to Surgery. Cumulative I&O: +5753 mL. Again, appears euvolemic, may use prn lasix if needed. Emphasized the importance of proper use of Incentive spirometry Strict I&O's, daily weights. Wilson cath inserted d/t urinary retention. Will continue to follow. Qualifiers: Qualified Code(s): I42.9 - Cardiomyopathy, unspecified (2) Abnormal stress test Current Visit: Yes Status: Acute Pharmacologic nuclear stress test: Gated EF 35%. Large sized, moderate to severe intensity, fixed defect throughout the inferior, inferolateral, and apex segments consistent with prior infarct. Perfusion imaging was negative for ischemia. Frequent PVCs prior to exam beginning. 4 beat NSVT during stress. No known prior cardiac hx. Negative for ischemia. Pt is functional and asymptomatic from a cardiac standpoint. Recommend outpt follow-up in 2-3 weeks to re-evaluate and discuss outpt [facility]. Pt and agreeable to plan. No chest pain reported. No post-operative complications reported. Continue asa, statin, BB. (3) NSVT (nonsustained ventricular tachycardia) Current Visit: Yes Status: Acute Frequent PVCs prior to beginning stress test. 4 beat NSVT during stress. CMP EF 40-45% on TTE. Telemetry reviewed overnight, frequent episodes of NSVT noted. Check Mag, keep >2.0, keep K >4.0 Increase Toprol XL today. Discussion w patient/family: The assessment and plan as outlined above was discussed with the patient and/or family members who expressed understanding and agreement. All questions were answered. Thank you for involving us in the care of your patient. Please call with any questions. The patient will be discussed and reviewed with Dr. Melchor; changes to be made accordingly. Subjective Principal diagnosis: CHF, s/p lap tabitha Interval history: Seen and examined. Sitting up in bedside chair. Reports cough improving, still utilizing oxygen via nasal cannula. Results of CT findings discussed. No chest pain reported. Objective Vital Signs, Last 4 Hours Temp Pulse Resp BP Pulse Ox 09/17/17 07:40 17 92 09/17/17 07:25 98.4 F 87 17 123/81 92 General: Conversant HEENT: Atraumatic, Normocephaly Cardiac: Reg Rate and Rhythm, Normal S1 and S2 Lungs: Other (Decreased bibasilar) Neuro: Alert and responsive Abdomen: Soft, Other (ARCHANA drain present) Skin: No rashes noted on visualized skin Musculoskeletal: No Chest Wall Tenderness Extremities: No Edema, Normal Pulses Other: Wilson cath present Results 09/17/17 04:55 09/17/17 04:20 Lab Results 09/17/17 09/17/17 09/17/17 04:20 04:20 04:55 WBC 15.7 H Hgb 14.2 Hct 40.3 Plt Count 207 Sodium 134 L Potassium 4.0 Chloride 103 Carbon Dioxide 22 L BUN 15 Creatinine 0.99 Glucose 116 H Calcium 8.1 L Total Bilirubin 1.0 AST 64 H ALT 76 H Alkaline Phosphatase 87 B-Natriuretic Peptide 705 H Active Medications Albuterol/Ipratropium (Duoneb) 3 ml IH [id number] [facility] Stop: 03/17/18 12:01 Last Admin: 09/17/17 07:38 Dose: 3 ml Aspirin (Aspirin) 81 mg PO DAILY [facility] Stop: 03/15/18 13:16 Last Admin: 09/17/17 07:28 Dose: 81 mg Atorvastatin Calcium (Lipitor) 40 mg PO HS [facility] Stop: 03/15/18 21:01 Last Admin: 09/16/17 20:55 Dose: 40 mg Enoxaparin Sodium (Lovenox) 40 mg SQ 0600 [facility] PRN Reason: Protocol Stop: 03/14/18 09:36 Last Admin: 09/17/17 06:01 Dose: 40 mg Hydralazine HCl (Hydralazine) 10 mg IVP Q6HR PRN PRN Reason: Hypertension Stop: 03/14/18 09:36 Metronidazole (Flagyl Premix 500 Mg/100 Ml) 500 mg in 100 mls @ 100 mls/hr IVPB Q8HR [facility] Stop: 03/15/18 08:01 Last Infusion: 09/17/17 08:26 Dose: Infused Levofloxacin/Dextrose (Levaquin Premix 750mg/150 Ml) 750 mg in 150 mls @ 100 mls/hr IVPB DAILY [facility] PRN Reason: Protocol Stop: 03/19/18 09:01 Last Admin: 09/17/17 08:30 Dose: 100 mls/hr Lisinopril (Zestril) 2.5 mg PO DAILY [facility] PRN Reason: Protocol Stop: 03/16/18 09:01 Last Admin: 09/17/17 07:29 Dose: 2.5 mg Metoprolol Succinate (Toprol Xl) 25 mg PO DAILY [facility] Stop: 03/20/18 09:01 Metoprolol Succinate (Toprol Xl) 12.5 mg PO ONCE ONE Stop: 09/17/17 11:01 Omeprazole (Prilosec) 20 mg PO BIDAC [facility] PRN Reason: Protocol Stop: 03/14/18 16:31 Last Admin: 09/17/17 07:26 Dose: 20 mg Ondansetron HCl (Zofran) 4 mg IVP Q8HR PRN; Protocol PRN Reason: Nausea And Vomiting Stop: 03/14/18 09:34 Oxycodone HCl (Oxycodone Oral Conc) 5 mg SL Q4H PRN; Protocol PRN Reason: Moderate Pain Stop: 03/14/18 09:34 Polyethylene Glycol (Miralax) 17 gm PO DAILY [facility] Stop: 03/18/18 13:36 Last Admin: 09/17/17 07:29 Dose: 17 gm Promethazine HCl (Phenergan) 12.5 mg IVP Q6HR PRN PRN Reason: Nausea And Vomiting Stop: 03/14/18 09:36 Tamsulosin HCl (Flomax) 0.4 mg PO DAILY [facility] PRN Reason: Protocol Stop: 03/18/18 12:46 Last Admin: 09/17/17 07:28 Dose: 0.4 mg - Imaging and Cardiology Echo: report reviewed Cardiac cath: report reviewed Other Results: 12 hour tele: avg FP=647 SR with frequent PVCs - EKG Interpretation EKG results cardiology: personally reviewed - VTE Documentation of Mechanical Device: Intermittent pneumatic compression device Consult Discharge Plan - Plan Referrals: Huy Reyes DO [Primary Care Provider] -
--- NOTE | 2017-09-17 10:18 | General Surgery Progress Note ---
<AndresThai Ania - Last Filed: 09/17/17 10:16> Date of Encounter: 09/17/17 Time of Encounter: 08:05 - Assessment and Plan (1) Cholecystitis Current Visit: Yes Status: Acute POD#[address] Radford. Abdominal discomfort is overall controlled. His ARCHANA is with less than 100 ML s[address]inous drainage daily. [address] with collection near ARCHANA site consistent with post-op changes PLAN: Continue supportive care and discomfort management Regular diet with protein supplements Continue GI and DVT prophylaxis Ambulate and halls TID Out of bed to chair for all trays Continue hospital care likely through the weekend (2) Pneumonia Current Visit: Yes Status: Acute CT with RLL consolidation. Pt requiring O2 supplementation Leukocytosis improving PLAN: Switch from Cipro to Levaquin Wean O2 as tolerated Qualifiers: Pneumonia type: due to unspecified organism Laterality: right Lung location: lower lobe of lung Qualified Code(s): J18.1 - Lobar pneumonia, unspecified organism (3) Acute urinary retention Current Visit: Yes Status: Acute Start Flomax Continue Lemus catheter Strict intake and output measurement UA with trace leuk esterase - culture pending (4) Acute systolic heart failure Current Visit: Yes Status: Acute CHF (pleural effusions, elevated BNP, SOB, increased O2 requirement). 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 Does not seem to be the cause of his current acute issues - will require follow -up for intervention. Subjective Patient reports: no new complaints, feels better, still having pain, pain is less, tolerating a regular diet, voiding w/o difficulty (lemus now), bowel movement, afebrile Narrative: Reports ambulating in the rodgers last night without dyspnea. No N/V with increasing diet. Objective Vital Signs - Last 8 Hours Temp Pulse Resp BP Pulse Ox 09/17/17 07:40 17 92 09/17/17 07:25 98.4 F 87 17 123/81 92 09/17/17 05:13 98.7 F 88 16 128/83 92 Intake and Output 09/16/17 09/17/17 09/17/17 23:59 07:59 15:59 Intake Total 300 / 300 300 / 300 340 / 340 Output Total 1010 / 1010 0 / 0 Balance 285 / 285 -710 / -710 340 / 340 Intake: IV Fluids 300 / 300 300 / 300 100 / 100 Cipro Premix 400 MG/200 ML 400 200 / 200 200 / 200 mg In 200 ml @ 200 mls/hr IVPB Q12HR [facility] Rx#:[id number] Flagyl Premix 500 MG/100 ML 500 100 / 100 100 / 100 100 / 100 mg In 100 ml @ 100 mls/hr IVPB Q8HR [facility] Rx#:[id number] Oral 0 / 0 0 / 0 240 / 240 Output: Urine 0 / 0 Catheter 1000 / 1000 Wound Drainage 10 10 0 / 0 Right side abdomen 0 / 0 Other: Meal Breakfast Percent of Meal Consumed 100% Weight 95.7 kg Patient Weight 09/17/17 23:59 Weight 95.7 kg - General physical appearance well developed, well nourished, no distress - Respiratory crackles: bilateral, rales: right (E to A changes) - Cardiovascular Cardiovascular exam: Present: RRR - Abdomen Abdomen: Present: bowel sounds present, soft, tender (appropriately) - Incision Incision: Present: draining (ARCHANA without sanguinous drainage), clean and dry, intact - Integumentary no rash, no growths, no abnormal pigmentation - Neurologic CN 2-12 grossly intact, normal coordination - Psychiatric oriented to time, oriented to person, oriented to place, speech is normal, memory intact - Labs 09/17/17 04:55 09/17/17 04:20 Diabetes panel 09/17/17 Range/Units 04:20 Sodium 134 L (136-145) mEq/L Potassium 4.0 (3.5-5.1) mEq/L Chloride 103 (98-107) mEq/L Carbon Dioxide 22 L (23-29) mEq/L BUN 15 (8-23) mg/dL Creatinine 0.99 (0.70-1.30) mg/dL Glucose 116 H (70-105) mg/dL Calcium 8.1 L (8.6-10.3) mg/dL AST 64 H (13-39) Units/L ALT 76 H (7-52) Units/L Alkaline Phosphatase 87 (34-104) Units/L Albumin 2.8 L (3.5-5.7) g/dL Calcium panel 09/17/17 Range/Units 04:20 Calcium 8.1 L (8.6-10.3) mg/dL Albumin 2.8 L (3.5-5.7) g/dL Pituitary panel 09/17/17 Range/Units 04:20 Sodium 134 L (136-145) mEq/L Potassium 4.0 (3.5-5.1) mEq/L Chloride 103 (98-107) mEq/L Carbon Dioxide 22 L (23-29) mEq/L BUN 15 (8-23) mg/dL Creatinine 0.99 (0.70-1.30) mg/dL Glucose 116 H (70-105) mg/dL Calcium 8.1 L (8.6-10.3) mg/dL Adrenal panel 09/17/17 Range/Units 04:20 Sodium 134 L (136-145) mEq/L Potassium 4.0 (3.5-5.1) mEq/L Chloride 103 (98-107) mEq/L Carbon Dioxide 22 L (23-29) mEq/L BUN 15 (8-23) mg/dL Creatinine 0.99 (0.70-1.30) mg/dL Glucose 116 H (70-105) mg/dL Calcium 8.1 L (8.6-10.3) mg/dL Total Bilirubin 1.0 (0.3-1.0) mg/dL AST 64 H (13-39) Units/L ALT 76 H (7-52) Units/L Alkaline Phosphatase 87 (34-104) Units/L Albumin 2.8 L (3.5-5.7) g/dL - VTE Documentation of Mechanical Device: Intermittent pneumatic compression device Consult Discharge Plan - Plan Referrals: Huy Reyes DO [Primary Care Provider] - <Arnaud Romero - Last Filed: 09/17/17 12:12> Date of Encounter: 09/17/17 Objective Vital Signs - Last 8 Hours Temp Pulse Resp BP Pulse Ox 09/17/17 11:34 17 92 09/17/17 11:31 97.2 F L 66 17 113/70 94 06/23/18 07:40 17 92 09/17/17 07:25 98.4 F 87 17 123/81 92 09/17/17 05:13 98.7 F 88 16 128/83 92 Intake and Output 09/16/17 09/17/17 09/17/17 23:59 07:59 15:59 Intake Total 300 / 300 300 / 300 340 / 340 Output Total 1010 / 1010 450 / 450 Balance 285 / 285 -710 / -710 -110 / -110 Intake: IV Fluids 300 / 300 300 / 300 100 / 100 Cipro Premix 400 MG/200 ML 400 200 / 200 200 / 200 mg In 200 ml @ 200 mls/hr IVPB Q12HR [facility] Rx#:[id number] Flagyl Premix 500 MG/100 ML 500 100 / 100 100 / 100 100 / 100 mg In 100 ml @ 100 mls/hr IVPB Q8HR [facility] Rx#:[id number] Oral 0 / 0 0 / 0 240 / 240 Output: Urine 0 / 0 Catheter 1000 / 1000 450 / 450 Wound Drainage 10 / 10 0 / 0 Right side abdomen 0 / 0 Other: Meal Breakfast Percent of Meal Consumed 100% Weight 95.7 kg Patient Weight 09/17/17 23:59 Weight 95.7 kg - Labs 09/17/17 04:55 09/17/17 04:20 Diabetes panel 09/17/17 Range/Units 04:20 Sodium 134 L (136-145) mEq/L Potassium 4.0 (3.5-5.1) mEq/L Chloride 103 (98-107) mEq/L Carbon Dioxide 22 L (23-29) mEq/L BUN 15 (8-23) mg/dL Creatinine 0.99 (0.70-1.30) mg/dL Glucose 116 H (70-105) mg/dL Calcium 8.1 L (8.6-10.3) mg/dL AST 64 H (13-39) Units/L ALT 76 H (7-52) Units/L Alkaline Phosphatase 87 (34-104) Units/L Albumin 2.8 L (3.5-5.7) g/dL Calcium panel 09/17/17 Range/Units 04:20 Calcium 8.1 L (8.6-10.3) mg/dL Albumin 2.8 L (3.5-5.7) g/dL Pituitary panel 09/17/17 Range/Units 04:20 Sodium 134 L (136-145) mEq/L Potassium 4.0 (3.5-5.1) mEq/L Chloride 103 (98-107) mEq/L Carbon Dioxide 22 L (23-29) mEq/L BUN 15 (8-23) mg/dL Creatinine 0.99 (0.70-1.30) mg/dL Glucose 116 H (70-105) mg/dL Calcium 8.1 L (8.6-10.3) mg/dL Adrenal panel 09/17/17 Range/Units 04:20 Sodium 134 L (136-145) mEq/L Potassium 4.0 (3.5-5.1) mEq/L Chloride 103 (98-107) mEq/L Carbon Dioxide 22 L (23-29) mEq/L BUN 15 (8-23) mg/dL Creatinine 0.99 (0.70-1.30) mg/dL Glucose 116 H (70-105) mg/dL Calcium 8.1 L (8.6-10.3) mg/dL Total Bilirubin 1.0 (0.3-1.0) mg/dL AST 64 H (13-39) Units/L ALT 76 H (7-52) Units/L Alkaline Phosphatase 87 (34-104) Units/L Albumin 2.8 L (3.5-5.7) g/dL - Attending Attestation I examined this patient and my medical decision-making was reviewed with the Resident Physician. I agree with the documented findings, disposition and treatment plan as described except to the extent set forth below. The patient is seen and evaluated with the resident on morning rounds. He is sitting comfortably in a chair. Ze-Sanchez drain demonstrates sanguinous drainage low volume. I personally reviewed the CAT scan of the abdomen and chest. He has a right pleural effusion as well as atelectasis versus pneumonia. On physical examination he has A to E changes consistent with right lower lobe consolidation. I personally reviewed the CAT scan looking at the fluid accumulation the fossa. This looks like a small amount of clot. We will continue with supportive care and antibiotic therapy. We will continue with aggressive lung clearance. Arnaud Romero MD FACS
[2017-09-17] MEDS ORDERED: Metoprolol XL (24 HR) Succ 25 MG TAB.ER.24H PO ONE (11:00)
[2017-09-18] MEDS: MetroNIDAZOLE 500 MG/100 ML 500 MG/100 ML BAG IVPB SCH ×4 (00:26→23:34)
[2017-09-18] MEDS: Ipratropium/Albuterol Neb 3 ML IH SCH ×6 (03:28→23:26)
[2017-09-18] MEDS: *HR* Enoxaparin 40 MG/0.4 ML SYRINGE SQ SCH (06:09)
[2017-09-18 07:06] LABS: Basophils # 0.1 K/mcL (0.0-0.2); Basophils % 0.8 %; Eosinophils # 0.2 K/mcL (0.0-0.6); Eosinophils % 1.1 %; Hematocrit 39.7 % (37.5-50.1); Hemoglobin 13.7 g/dL (12.9-16.9); Immature Granulocytes % 7.3 % (0-4); Lymphocytes # 1.6 K/mcL (0.6-4.6); Lymphocytes % 11.6 %; Mean Corpuscular HGB Conc 34.5 g/dL (31.6-35.5); Mean Corpuscular Hemoglobin 31.4 pg (28.0-33.3); Mean Corpuscular Volume 90.8 fL (83.0-100.0); Mean Platelet Volume 9.8 fL (9.4-12.4); Monocytes # 1.4 K/mcL (0.0-1.3); Monocytes % 10.1 %; Neutrophils # 9.5 K/mcL (1.6-8.9); Platelet Count 246 K/mcL (140-400); Red Blood Count 4.37 M/mcL (4.19-5.50); Red Cell Distribution Width 14.3 % (11.5-14.5); Segmented Neutrophils % 69.1 %
[2017-09-18 07:23] LABS: BUN/Creatinine Ratio 14 (6-26); Blood Urea Nitrogen 11 mg/dL (8-23); Calcium 8.2 mg/dL (8.6-10.3); Carbon Dioxide 25 mEq/L (23-29); Chloride 103 mEq/L (98-107); Glucose 110 mg/dL (70-105); Osmolality,Calculated 280 (280-300); Potassium 3.4 mEq/L (3.5-5.1); Sodium 135 mEq/L (136-145); eGFR For African Americans > 60 (> 60); eGFR For Non-African Americans > 60 (> 60)
[2017-09-18] MEDS: Aspirin 81 MG TAB.CHEW PO SCH (07:38)
[2017-09-18 07:43] LABS: Platelet Estimate Normal (Normal)
--- NOTE | 2017-09-18 08:57 | General Surgery Progress Note ---
<Thai Campos Ania - Last Filed: 09/18/17 10:11> Date of Encounter: 09/18/17 Time of Encounter: 07:50 - Assessment and Plan (1) Cholecystitis Current Visit: Yes Status: Acute POD #3 robotic chole[address] with Dr. Radford. Abdominal discomfort is overall controlled. His ARCHANA is with less than 100 ML sanguinous drainage daily - tegaderm over ARCHANA site to help with better seal CT with collection near ARCHANA site consistent with post-op changes PLAN: Continue supportive care and discomfort management Regular diet with protein supplements Continue GI and DVT prophylaxis Ambulate and halls TID Out of bed to chair for all trays Continue hospital care likely through the weekend (2) Pneumonia Current Visit: Yes Status: Acute CT with RLL consolidation Pt requiring 3-4 L O2 supplementation to maintain O2 sat above 90% Leukocytosis improving PLAN: Continue Levaquin Wean O2 as tolerated Qualifiers: Pneumonia type: due to unspecified organism Laterality: right Lung location: lower lobe of lung Qualified Code(s): J18.1 - Lobar pneumonia, unspecified organism (3) Acute urinary retention Current Visit: Yes Status: Acute ContinueFlomax Remove lemus today Strict intake and output measurement UA with trace leuk esterase - culture pending (4) Acute systolic heart failure Current Visit: Yes Status: Acute CHF (pleural effusions, elevated BNP, SOB, increased O2 requirement). 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 Does not seem to be the cause of his current acute issues - will require follow -up for intervention. Subjective Patient reports: no new complaints, feels better, still having pain, pain is less, tolerating a regular diet, voiding w/o difficulty (lemus in place), bowel movement, afebrile Narrative: Pt continues to deny dyspnea but still requiring 3-4 L O2 to maintain at 90-94% sat. Denies new concerns. Having some difficulty with the ARCHANA drain maintaining suction. Reports BM. No N/V. No chest pain or difficulty breathing. Also have a report of 12 beats of vtach on tele overnight - EKG shows intermittent PVCs. Objective Vital Signs - Last 8 Hours Temp Pulse Resp BP Pulse Ox 09/18/17 07:19 18 91 09/18/17 06:38 98.0 F 78 18 138/92 92 09/18/17 04:23 98.1 F 84 16 136/90 90 09/18/17 03:30 16 94 Intake and Output 09/17/17 09/18/17 09/18/17 23:59 07:59 15:59 Intake Total 340 / 340 100 / 100 Output Total 1465 / 1465 1250 / 1250 Balance -1125 / -1125 -1150 / -1150 Intake: IV Fluids 100 / 100 100 / 100 Flagyl Premix 500 MG/100 ML 500 100 / 100 100 / 100 mg In 100 ml @ 100 mls/hr IVPB Q8HR [facility] Rx#:[id number] Oral 240 / 240 0 / 0 Output: Catheter 1450 / 1450 1250 / 1250 Wound Drainage 15 / 15 0 / 0 Right side abdomen 15 / 15 0 / 0 Other: Meal Dinner Percent of Meal Consumed 50% Weight 96 kg Patient Weight 09/18/17 23:59 Weight 96 kg - General physical appearance well developed, well nourished, no distress - Respiratory crackles: bilateral, rales: right - Cardiovascular Cardiovascular exam: Present: RRR - Abdomen Abdomen: Present: bowel sounds present, soft, tender (appropriately) - Incision Incision: Present: draining (ARCHANA with mild sangiunous drainage), clean and dry, intact - Integumentary no rash, no growths, no abnormal pigmentation - Neurologic CN 2-12 grossly intact, normal coordination - Psychiatric oriented to time, oriented to person, oriented to place, speech is normal, memory intact - Labs 09/18/17 06:54 09/18/17 06:54 Diabetes panel 09/18/17 Range/Units 06:54 Sodium 135 L (136-145) mEq/L Potassium 3.4 L (3.5-5.1) mEq/L Chloride 103 (98-107) mEq/L Carbon Dioxide 25 (23-29) mEq/L BUN 11 (8-23) mg/dL Creatinine 0.79 (0.70-1.30) mg/dL Glucose 110 H (70-105) mg/dL Calcium 8.2 L (8.6-10.3) mg/dL Calcium panel 09/18/17 Range/Units 06:54 Calcium 8.2 L (8.6-10.3) mg/dL Pituitary panel 09/18/17 Range/Units 06:54 Sodium 135 L (136-145) mEq/L Potassium 3.4 L (3.5-5.1) mEq/L Chloride 103 (98-107) mEq/L Carbon Dioxide 25 (23-29) mEq/L BUN 11 (8-23) mg/dL Creatinine 0.79 (0.70-1.30) mg/dL Glucose 110 H (70-105) mg/dL Calcium 8.2 L (8.6-10.3) mg/dL Adrenal panel 09/18/17 Range/Units 06:54 Sodium 135 L (136-145) mEq/L Potassium 3.4 L (3.5-5.1) mEq/L Chloride 103 (98-107) mEq/L Carbon Dioxide 25 (23-29) mEq/L BUN 11 (8-23) mg/dL Creatinine 0.79 (0.70-1.30) mg/dL Glucose 110 H (70-105) mg/dL Calcium 8.2 L (8.6-10.3) mg/dL - VTE Documentation of Mechanical Device: Intermittent pneumatic compression device Consult Discharge Plan - Plan Referrals: Huy Reyes DO [Primary Care Provider] - <Arnaud Romero - Last Filed: 09/18/17 11:00> Date of Encounter: 09/18/17 Objective Vital Signs - Last 8 Hours Temp Pulse Resp BP Pulse Ox 09/18/17 07:19 18 91 09/18/17 06:38 98.0 F 78 18 138/92 92 09/18/17 04:23 98.1 F 84 16 136/90 90 09/18/17 03:30 16 94 Intake and Output 09/17/17 09/18/17 09/18/17 23:59 07:59 15:59 Intake Total 340 / 340 100 / 100 100 / 100 Output Total 1465 / 1465 1250 / 1250 305 / 305 Balance -1125 / -1125 -1150 / -1150 -205 / -205 Intake: IV Fluids 100 / 100 100 / 100 100 / 100 Flagyl Premix 500 MG/100 ML 500 100 / 100 100 / 100 100 / 100 mg In 100 ml @ 100 mls/hr IVPB Q8HR [facility] Rx#:[id number] Oral 240 / 240 0 / 0 0 / 0 Output: Catheter 1450 / 1450 1250 / 1250 300 / 300 Urethral (Lemus) 300 / 300 Wound Drainage 15 0 / 0 5 / 5 Right side abdomen 0 / 0 5 / 5 Other: Meal Dinner Breakfast Percent of Meal Consumed 50% 100% Weight 96 kg Patient Weight 09/18/17 23:59 Weight 96 kg - Labs 09/18/17 06:54 09/18/17 06:54 Diabetes panel 09/18/17 Range/Units 06:54 Sodium 135 L (136-145) mEq/L Potassium 3.4 L (3.5-5.1) mEq/L Chloride 103 (98-107) mEq/L Carbon Dioxide 25 (23-29) mEq/L BUN 11 (8-23) mg/dL Creatinine 0.79 (0.70-1.30) mg/dL Glucose 110 H (70-105) mg/dL Calcium 8.2 L (8.6-10.3) mg/dL Calcium panel 09/18/17 Range/Units 06:54 Calcium 8.2 L (8.6-10.3) mg/dL Pituitary panel 09/18/17 Range/Units 06:54 Sodium 135 L (136-145) mEq/L Potassium 3.4 L (3.5-5.1) mEq/L Chloride 103 (98-107) mEq/L Carbon Dioxide 25 (23-29) mEq/L BUN 11 (8-23) mg/dL Creatinine 0.79 (0.70-1.30) mg/dL Glucose 110 H (70-105) mg/dL Calcium 8.2 L (8.6-10.3) mg/dL Adrenal panel 09/18/17 Range/Units 06:54 Sodium 135 L (136-145) mEq/L Potassium 3.4 L (3.5-5.1) mEq/L Chloride 103 (98-107) mEq/L Carbon Dioxide 25 (23-29) mEq/L BUN 11 (8-23) mg/dL Creatinine 0.79 (0.70-1.30) mg/dL Glucose 110 H (70-105) mg/dL Calcium 8.2 L (8.6-10.3) mg/dL - Attending Attestation I examined this patient and my medical decision-making was reviewed with the Resident Physician. I agree with the documented findings, disposition and treatment plan as described except to the extent set forth below. The patient is seen and evaluated with the resident on morning rounds. He is had 2 days of Flomax. We will try and get his Lemus catheter out today. He is right upper quadrant drain does not have a good air seal. I think at reasonable to place Tegaderm on the skin surface to see if we can get this to drain better. He continues to require oxygen and has right lower lobe consolidation. Arnaud Romero MD FACS
[2017-09-18] MEDS: Levofloxacin 750 MG/150 ML 750 MG/150 ML BAG IVPB SCH (08:58)
[2017-09-18] MEDS ORDERED: Metoprolol XL (24 HR) Succ 25 MG TAB.ER.24H PO SCH (09:00)
[2017-09-18] MEDS ORDERED: Metoprolol XL (24 HR) Succ 25 MG TAB.ER.24H PO ONE (12:00)
--- NOTE | 2017-09-18 12:01 | Cardiology Progress Note ---
Date of Encounter: 09/18/17 Time of Encounter: 11:40 Assessment and Plan (1) Cardiomyopathy Current Visit: Yes Status: Acute TTE LVEF 40-45%. Mildly dilated left ventricle. Segmental left ventricular systolic dysfunction. Mild left ventricular diastolic dysfunction. Atypical septal motion consistent with bundle branch block. Normal right ventricular structure and function. Mild pulmonary hypertension. No significant valvular dysfunction. Pharmacologic nuclear stress test: Gated EF 35%. Evidence of prior infarct, negative for ischemia. Suspect ICMP given findings. Pt euvolemic, no acute complaints. Reconsult 09/16/17 for CHF. Clinically appears euvolemic upon exam. No shortness of breath or difficulty breathing reported. No overt edema noted. Suspect hypoxia largely secondary to PNA, no longer utilizing prn oxygen therapy. CXR 09/16 shows increasing small to moderate left pleural effusion with stable right pleural effusion. BNP only mildly, elevated 389. CT chest 09/16: right small to moderate pleural effusions with extensive right lower lobe consolidations most indicative of pnuemonia--recommend consulting Hospitalist service for further mgmt. Of note, CT also shows possible abscess or hematoma near ARCHANA drain tip--defer further mgmt to Surgery. Cumulative I&O: +3000 mL. Again, appears euvolemic, do not anticipate need for diuretic as outpatient as EF is only mildly reduced. Emphasized the importance of proper use of Incentive spirometry Strict I&O's, daily weights. F Will continue to follow. Qualifiers: Cardiomyopathy type: unspecified Qualified Code(s): I42.9 - Cardiomyopathy , unspecified (2) Abnormal stress test Current Visit: Yes Status: Acute Pharmacologic nuclear stress test: Gated EF 35%. Large sized, moderate to severe intensity, fixed defect throughout the inferior, inferolateral, and apex segments consistent with prior infarct. Perfusion imaging was negative for ischemia. Frequent PVCs prior to exam beginning. 4 beat NSVT during stress. No known prior cardiac hx. Negative for ischemia. Pt is functional and asymptomatic from a cardiac standpoint. Recommend outpt follow-up in 2-3 weeks to re-evaluate and discuss outpt C. Pt and agreeable to plan. No chest pain reported. No post-operative complications reported. Continue asa, statin, BB. (3) NSVT (nonsustained ventricular tachycardia) Current Visit: Yes Status: Acute Frequent PVCs prior to beginning stress test. 4 beat NSVT during stress. CMP EF 40-45% on TTE. Telemetry reviewed overnight, avg HR=95 SR. 12 beats NSVT (reviewed with Dr. Melchor) in the setting of hypokalemia and hypomagnesemia, now replaced. Check Mag, keep >2.0, keep K >4.0 Increase Toprol XL today. Discussion w patient/family: The assessment and plan as outlined above was discussed with the patient and/or family members who expressed understanding and agreement. All questions were answered. Thank you for involving us in the care of your patient. Please call with any questions. The patient will be discussed and reviewed with Dr. Melchor; changes to be made accordingly. Subjective Principal diagnosis: CHF, s/p lap tabitha Interval history: Seen and examined. Sitting up in bedside chair. Has been up ambulating in the hallways. Not currently utilizing prn oxygen. No chest pain reported. Objective Vital Signs, Last 4 Hours Temp Pulse Resp BP Pulse Ox 09/18/17 11:15 98.0 F 68 18 133/85 97 09/18/17 11:09 16 91 General: Conversant, No Apparent Distress HEENT: Atraumatic, Normocephaly, Mucus Membranes Moist Cardiac: Reg Rate and Rhythm, Normal S1 and S2 Lungs: Other (Decreased bibasilar, few rales) Neuro: Alert and responsive Abdomen: Soft, Other (ARCHANA drain present) Skin: No rashes noted on visualized skin Musculoskeletal: No Chest Wall Tenderness Extremities: No Edema, Normal Pulses Results 09/18/17 06:54 09/18/17 06:54 Lab Results 09/18/17 09/18/17 09/18/17 00:46 06:54 06:54 WBC 13.7 H Hgb 13.7 Hct 39.7 Plt Count 246 Sodium 135 L Potassium 3.4 L Chloride 103 Carbon Dioxide 25 BUN 11 Creatinine 0.79 Glucose 110 H Calcium 8.2 L Magnesium 1.8 Active Medications Albuterol/Ipratropium (Duoneb) 3 ml IH [id number] [facility] Stop: 03/17/18 12:01 Last Admin: 09/18/17 11:09 Dose: 3 ml Aspirin (Aspirin) 81 mg PO DAILY [facility] Stop: 03/15/18 13:16 Last Admin: 09/18/17 07:38 Dose: 81 mg Atorvastatin Calcium (Lipitor) 40 mg PO HS [facility] Stop: 03/15/18 21:01 Last Admin: 09/17/17 21:48 Dose: 40 mg Docusate Sodium (Colace) 100 mg PO BID PRN; Protocol PRN Reason: Constipation Stop: 03/19/18 21:35 Last Admin: 09/18/17 07:39 Dose: 100 mg Enoxaparin Sodium (Lovenox) 40 mg SQ 0600 [facility] PRN Reason: Protocol Stop: 03/14/18 09:36 Last Admin: 09/18/17 06:09 Dose: 40 mg Hydralazine HCl (Hydralazine) 10 mg IVP Q6HR PRN PRN Reason: Hypertension Stop: 03/14/18 09:36 Metronidazole (Flagyl Premix 500 Mg/100 Ml) 500 mg in 100 mls @ 100 mls/hr IVPB Q8HR [facility] Stop: 03/15/18 08:01 Last Infusion: 09/18/17 08:30 Dose: Infused Levofloxacin/Dextrose (Levaquin Premix 750mg/150 Ml) 750 mg in 150 mls @ 100 mls/hr IVPB DAILY [facility] PRN Reason: Protocol Stop: 03/19/18 09:01 Last Infusion: 09/18/17 10:28 Dose: Infused Lisinopril (Zestril) 2.5 mg PO DAILY [facility] PRN Reason: Protocol Stop: 03/16/18 09:01 Last Admin: 09/18/17 07:39 Dose: 2.5 mg Metoprolol Succinate (Toprol Xl) 50 mg PO DAILY [facility] Stop: 03/21/18 09:01 Metoprolol Succinate (Toprol Xl) 25 mg PO DAILY [facility] Stop: 09/18/17 12:01 Omeprazole (Prilosec) 20 mg PO BIDAC [facility] PRN Reason: Protocol Stop: 03/14/18 16:31 Last Admin: 09/18/17 07:38 Dose: 20 mg Ondansetron HCl (Zofran) 4 mg IVP Q8HR PRN; Protocol PRN Reason: Nausea And Vomiting Stop: 03/14/18 09:34 Oxycodone HCl (Oxycodone Oral Conc) 5 mg SL Q4H PRN; Protocol PRN Reason: Moderate Pain Stop: 03/14/18 09:34 Polyethylene Glycol (Miralax) 17 gm PO DAILY [facility] Stop: 03/18/18 13:36 Last Admin: 09/18/17 07:38 Dose: 17 gm Promethazine HCl (Phenergan) 12.5 mg IVP Q6HR PRN PRN Reason: Nausea And Vomiting Stop: 03/14/18 09:36 Tamsulosin HCl (Flomax) 0.4 mg PO DAILY [facility] PRN Reason: Protocol Stop: 03/18/18 12:46 Last Admin: 09/18/17 07:38 Dose: 0.4 mg - Imaging and Cardiology Stress Test: report reviewed Echo: report reviewed Other Results: 12 hour tele: avg HR=95 SR. NSVT noted, max 12 beats. - VTE Documentation of Mechanical Device: Intermittent pneumatic compression device Consult Discharge Plan - Plan Referrals: Huy Reyes DO [Primary Care Provider] -
[2017-09-19 01:00] LABS: Basophils % 0.2 %; Eosinophils # 0.2 K/mcL (0.0-0.6); Eosinophils % 1.3 %; Hemoglobin 13.7 g/dL (12.9-16.9); Immature Granulocytes % 11.7 % (0-4); Lymphocytes # 1.7 K/mcL (0.6-4.6); Lymphocytes % 13.3 %; Mean Corpuscular HGB Conc 34.3 g/dL (31.6-35.5); Mean Corpuscular Hemoglobin 31.2 pg (28.0-33.3); Mean Corpuscular Volume 91.1 fL (83.0-100.0); Mean Platelet Volume 9.8 fL (9.4-12.4); Monocytes # 1.2 K/mcL (0.0-1.3); Monocytes % 9.2 %; Neutrophils # 8.2 K/mcL (1.6-8.9); Platelet Count 289 K/mcL (140-400); Red Blood Count 4.39 M/mcL (4.19-5.50); Red Cell Distribution Width 14.4 % (11.5-14.5); Segmented Neutrophils % 64.3 %
[2017-09-19 01:14] LABS: Alanine Aminotransferase 98 Units/L (7-52); Albumin 2.6 g/dL (3.5-5.7); Albumin/Globulin Ratio 1.2 (1.1-2.2); Alkaline Phosphatase 90 Units/L (34-104); Aspartate Amino Transferase 125 Units/L (13-39); BUN/Creatinine Ratio 12 (6-26); Bilirubin,Total 0.7 mg/dL (0.3-1.0); Blood Urea Nitrogen 9 mg/dL (8-23); Calcium 7.9 mg/dL (8.6-10.3); Carbon Dioxide 26 mEq/L (23-29); Chloride 104 mEq/L (98-107); Globulin 2.2 g/dL (2.4-3.5); Glucose 118 mg/dL (70-105); Magnesium 2.1 mg/dL (1.6-2.6); Osmolality,Calculated 282 (280-300); Potassium 3.5 mEq/L (3.5-5.1); Sodium 136 mEq/L (136-145); Total Protein 4.8 g/dL (6.4-8.9); eGFR For African Americans > 60 (> 60); eGFR For Non-African Americans > 60 (> 60)
[2017-09-19 01:52] LABS: Platelet Estimate Normal (Normal)
[2017-09-19] MEDS: Ipratropium/Albuterol Neb 3 ML IH SCH ×6 (03:53→23:51)
[2017-09-19] MEDS: *HR* Enoxaparin 40 MG/0.4 ML SYRINGE SQ SCH (06:29)
--- NOTE | 2017-09-19 07:11 | Electrocardiograph Report ---
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
[2017-09-19] MEDS: MetroNIDAZOLE 500 MG/100 ML 500 MG/100 ML BAG IVPB SCH ×3 (09:03→23:20)
[2017-09-19] MEDS: Levofloxacin 750 MG/150 ML 750 MG/150 ML BAG IVPB SCH (09:03)
[2017-09-19] MEDS: Metoprolol XL (24 HR) Succ 25 MG TAB.ER.24H PO SCH (09:03)
[2017-09-19] MEDS: Aspirin 81 MG TAB.CHEW PO SCH (09:03)
--- NOTE | 2017-09-19 09:54 | Cardiology Progress Note ---
Date of Encounter: 09/19/17 Time of Encounter: 09:20 Assessment and Plan (1) Cardiomyopathy Current Visit: Yes Status: Acute TTE LVEF 40-45%. Mildly dilated left ventricle. Segmental left ventricular systolic dysfunction. Mild left ventricular diastolic dysfunction. Atypical septal motion consistent with bundle branch block. Normal right ventricular structure and function. Mild pulmonary hypertension. No significant valvular dysfunction. Pharmacologic nuclear stress test: Gated EF 35%. Evidence of prior infarct, negative for ischemia. Suspect ICMP given findings. Pt euvolemic, no acute complaints. Reconsult 09/16/17 for CHF. Clinically appears euvolemic upon exam. No shortness of breath or difficulty breathing reported. No overt edema noted. Suspect hypoxia largely secondary to PNA, no longer utilizing prn oxygen therapy during exam. CXR 09/16 shows increasing small to moderate left pleural effusion with stable right pleural effusion. BNP only mildly, elevated 389. CT chest 09/16: right small to moderate pleural effusions with extensive right lower lobe consolidations most indicative of pnuemonia--recommend consulting Hospitalist service for further mgmt. Of note, CT also shows possible abscess or hematoma near ARCHANA drain tip--defer further mgmt to Surgery. Cumulative I&O: +2000 mL. Again, appears euvolemic, do not anticipate need for diuretic as outpatient as EF is only mildly reduced. Emphasized the importance of proper use of Incentive spirometry Strict I&O's, daily weights. Cardiology will sign-off, outpatient follow-up set. Qualifiers: Cardiomyopathy type: unspecified Qualified Code(s): I42.9 - Cardiomyopathy , unspecified (2) Abnormal stress test Current Visit: Yes Status: Acute Pharmacologic nuclear stress test: Gated EF 35%. Large sized, moderate to severe intensity, fixed defect throughout the inferior, inferolateral, and apex segments consistent with prior infarct. Perfusion imaging was negative for ischemia. Frequent PVCs prior to exam beginning. 4 beat NSVT during stress. No known prior cardiac hx. Negative for ischemia. Pt is functional and asymptomatic from a cardiac standpoint. Recommend outpt follow-up in 2-3 weeks to re-evaluate and discuss outpt LHC. Pt and agreeable to plan. No chest pain reported. No post-operative complications reported. Continue asa, statin, BB. (3) NSVT (nonsustained ventricular tachycardia) Current Visit: Yes Status: Acute Frequent PVCs prior to beginning stress test. 4 beat NSVT during stress. CMP EF 40-45% on TTE. Telemetry reviewed overnight, avg HR=87 SR. No significant NSVT noted overnight. Continue BB, keep K >4.0, Mg >2.0 Discussion w patient/family: The assessment and plan as outlined above was discussed with the patient and/or family members who expressed understanding and agreement. All questions were answered. Thank you for involving us in the care of your patient. Please call with any questions. The patient will be discussed and reviewed with Dr. Bhatti; changes to be made accordingly. Subjective Principal diagnosis: CHF, s/p lap tabitha Interval history: Seen and examined. Sitting up in bedside chair. Has been up ambulating in the hallways. Not currently utilizing prn oxygen. No chest pain reported. NO events reported overnight. Objective Vital Signs, Last 4 Hours Resp Pulse Ox 09/19/17 07:52 15 90 General: Conversant, No Apparent Distress HEENT: Atraumatic, Normocephaly, Mucus Membranes Moist Cardiac: Reg Rate and Rhythm, Normal S1 and S2 Lungs: Normal Breath Sounds Neuro: Alert and responsive Abdomen: Soft, Other (ARCHANA drain present) Skin: No rashes noted on visualized skin Extremities: No Edema, Normal Pulses Results 09/19/17 00:30 09/19/17 00:30 Lab Results 09/19/17 09/19/17 00:30 00:30 WBC 12.7 H Hgb 13.7 Hct 40.0 Plt Count 289 Sodium 136 Potassium 3.5 Chloride 104 Carbon Dioxide 26 BUN 9 Creatinine 0.77 Glucose 118 H Calcium 7.9 L Magnesium 2.1 Total Bilirubin 0.7 AST 125 H ALT 98 H Alkaline Phosphatase 90 Active Medications Albuterol/Ipratropium (Duoneb) 3 ml IH [id number] [facility] Stop: 03/17/18 12:01 Last Admin: 09/19/17 07:50 Dose: 3 ml Aspirin (Aspirin) 81 mg PO DAILY [facility] Stop: 03/15/18 13:16 Last Admin: 09/19/17 09:03 Dose: 81 mg Atorvastatin Calcium (Lipitor) 40 mg PO HS [facility] Stop: 03/15/18 21:01 Last Admin: 09/18/17 20:37 Dose: 40 mg Docusate Sodium (Colace) 100 mg PO BID PRN; Protocol PRN Reason: Constipation Stop: 03/19/18 21:35 Last Admin: 09/18/17 07:39 Dose: 100 mg Enoxaparin Sodium (Lovenox) 40 mg SQ 0600 [facility] PRN Reason: Protocol Stop: 03/14/18 09:36 Last Admin: 09/19/17 06:29 Dose: 40 mg Hydralazine HCl (Hydralazine) 10 mg IVP Q6HR PRN PRN Reason: Hypertension Stop: 03/14/18 09:36 Metronidazole (Flagyl Premix 500 Mg/100 Ml) 500 mg in 100 mls @ 100 mls/hr IVPB Q8HR [facility] Stop: 03/15/18 08:01 Last Admin: 09/19/17 09:03 Dose: 100 mls/hr Levofloxacin/Dextrose (Levaquin Premix 750mg/150 Ml) 750 mg in 150 mls @ 100 mls/hr IVPB DAILY [facility] PRN Reason: Protocol Stop: 03/19/18 09:01 Last Admin: 09/19/17 09:03 Dose: 100 mls/hr Lisinopril (Zestril) 2.5 mg PO DAILY [facility] PRN Reason: Protocol Stop: 03/16/18 09:01 Last Admin: 09/19/17 08:57 Dose: 2.5 mg Metoprolol Succinate (Toprol Xl) 50 mg PO DAILY [facility] Stop: 03/21/18 09:01 Last Admin: 09/19/17 09:03 Dose: 50 mg Omeprazole (Prilosec) 20 mg PO BIDAC [facility] PRN Reason: Protocol Stop: 03/14/18 16:31 Last Admin: 09/19/17 09:03 Dose: 20 mg Ondansetron HCl (Zofran) 4 mg IVP Q8HR PRN; Protocol PRN Reason: Nausea And Vomiting Stop: 03/14/18 09:34 Oxycodone HCl (Oxycodone Oral Conc) 5 mg SL Q4H PRN; Protocol PRN Reason: Moderate Pain Stop: 03/14/18 09:34 Polyethylene Glycol (Miralax) 17 gm PO DAILY [facility] Stop: 03/18/18 13:36 Last Admin: 09/19/17 08:56 Dose: 17 gm Potassium Chloride (Potassium Chloride) 40 meq PO BID [facility] Stop: 09/19/17 21:01 Last Admin: 09/19/17 08:57 Dose: 40 meq Promethazine HCl (Phenergan) 12.5 mg IVP Q6HR PRN PRN Reason: Nausea And Vomiting Stop: 03/14/18 09:36 Tamsulosin HCl (Flomax) 0.4 mg PO DAILY [facility] PRN Reason: Protocol Stop: 03/18/18 12:46 Last Admin: 09/19/17 09:02 Dose: 0.4 mg - Imaging and Cardiology Stress Test: report reviewed Echo: report reviewed Other Results: 12 hour tele: avg HR=87 SR. Frequent PVCs - EKG Interpretation EKG results cardiology: personally reviewed - VTE Documentation of Mechanical Device: Intermittent pneumatic compression device Consult Discharge Plan - Plan Referrals: Huy Reyes DO [Primary Care Provider] -
[2017-09-19] MEDS ORDERED: Furosemide 40 MG/4 ML VIAL IVP ONE (10:48)
--- NOTE | 2017-09-19 14:13 | General Surgery Progress Note ---
Addendum entered and electronically signed by Gillian Greco CNP 09/19/17 16: 02: Consult to pulmonology given continued pleural effusions. Per telephone review with Dr. Abad, there is no drain umbel effusion noted. Recommendation for respiratory treatments with pressure valve noted. Okay to DC in the a.m. and follow-up with pulmonology as an outpatient. Patient with acute urinary retention in the setting of history of prostate cancer and renal calculi. His previous urologist was in [place] but he has not seen him for several years. Will consult urology for discharge recommendations regarding DC planning, Flomax, and Lemus catheter. Surgery appreciates recommendations. Original Note: <Gillian Greco - Last Filed: 09/19/17 14:07> Date of Encounter: 09/19/17 Time of Encounter: 10:00 - Assessment and Plan (1) Cholecystitis Current Visit: Yes Status: Acute Date of procedure: 09/14/17 Pre-op diagnosis: acute cholecystitis Post-op diagnosis: other (gangrenous cholecystitis) Procedure: robotic cholecystectomy with ICG intraoperative cholangiogram Implants: 19F ariadna drain in liver bed Complications: none POD#5 as above. Abdominal discomfort is overall controlled. His JOSE is WNL He is on IV Cipro Flagyl. White blood cell count is down trending but remains elevated. Bilirubin has returned to normal. His AST and ALT are elevated today at 125 and 98 respectively. He continues to require increased oxygen demands and diuresis. He is noted to have an increase of approximately 12 pounds this admission. He has received 40 mg IV Lasix on 09/15, 09/16 and 09/19 as well as an additional 20 mg on 09/16. Despite the diuresis he continues to have a lateral pleural effusions. Plan: continue supportive care and discomfort management regular diet with protein supplements continue G.I. and DVT prophylaxis ambulate and halls TID out of bed to chair for all trays Continue hospital care for evaluation per pulmonary. (2) Pleural effusion Current Visit: Yes Status: Acute Per CXR 09/15,,and despite diuresis. CHF vs PNA Continue IV ATBX Continue diuresis Consult pulmonology for further recommendations. d/c planning per pulmonology recommendations (3) Acute systolic heart failure Current Visit: Yes Status: Acute CHF (pleural effusions, elevated BNP (389 and 705 respectively), SOB with activity increased O2 requirement) Repeat CXR today with continued pleural effusions. Cardiology has signed off , feeling that euvolemic, despite increased urinary output with lasix and increased O2 demand (noted increased weight of 12lbs and increased BNP above) . Likely CHF with comorbid PNA Lemus and Diuresis Accurate I&O and daily standing scale weights qualified for home 02 (4) Acute urinary retention Current Visit: Yes Status: Acute continue Flomax continue Lemus catheter, patient will be discharged with Lemus and follow-up with urology given history of prostate cancer and acute urinary retention accurate intake and output of note patient had only a small amount of urinary output this a.m. which was dark colored and after Lasix administration he is diuresis approximately 3 L. (5) Paraesophageal hiatal hernia Current Visit: Yes Status: Acute Paraesophageal hernia vs sliding hiatal hernia (per radiology read the GE junction is in the appropriate location). Regardless, this does not seem to be the cause of his current acute issues; however, will require follow-up for intervention. (6) Abnormal CT of the abdomen Current Visit: Yes Status: Acute Atherosclerosis, nephrolithiasis, stable bilateral renal cysts, renal cortical scarring, stable hepatic cysts, bilateral common iliac artery aneurysms Follow-up with PCP at d/c CT/CT angio abdomen pelvis IMPRESSION: 1. Unremarkable CTA appearance of the aorta, without evidence of aneurysm or dissection. 2. No CT evidence of a pulmonary embolism. 3. Dependent atelectasis within the bilateral lungs, without acute intrapulmonary findings. 4. Bilateral nonobstructing nephrolithiasis, with an additional layering calculus within the urinary bladder. However, there is no evidence of a ureteral calculus or hydronephrosis. 5. Stable bilateral renal cysts with left renal cortical scarring. 6. Cholelithiasis. 7. Stable hepatic cysts. 8. Stable large hiatal hernia. 9. Mild bilateral common iliac artery aneurysms. Subjective Patient reports: no new complaints, still having pain, pain is less, voiding w/ o difficulty (Per lemus cath), flatus, bowel movement, shortness of breath ( with activity, but is improving), afebrile Objective Vital Signs - Last 8 Hours Temp Pulse Resp BP Pulse Ox 09/19/17 11:17 98.3 F 75 16 127/85 91 09/19/17 09:00 91 09/19/17 07:52 15 90 09/19/17 07:15 98.6 F 80 14 137/86 90 Intake and Output 09/18/17 09/19/17 09/19/17 23:59 07:59 15:59 Intake Total 100 / 100 100 / 100 490 / 490 Output Total 1105 / 1105 1175 / 1175 1600 / 1600 Balance -1005 / -1005 -1075 / -1075 -1110 / -1110 Intake: IV Fluids 100 / 100 100 / 100 250 / 250 Levaquin Premix 750mg/150 mL 150 / 150 750 mg In 150 ml @ 100 mls/hr IVPB DAILY [facility] Rx#:[id number] Flagyl Premix 500 MG/100 ML 500 100 / 100 100 / 100 100 / 100 mg In 100 ml @ 100 mls/hr IVPB Q8HR [facility] Rx#:[id number] Oral 0 / 0 0 / 0 240 / 240 Output: Urine 1100 / 1100 0 / 0 Catheter 1175 / 1175 1600 / 1600 Wound Drainage 5 / 5 0 / 0 0 / 0 Right side abdomen 5 / 5 0 / 0 0 / 0 Other: Meal Dinner Breakfast Percent of Meal Consumed 80% 100% Weight 96.2 kg Patient Weight 09/19/17 23:59 Weight 96.2 kg VITAL SIGNS: Reviewed. Remains on O2 per MA. Qualified for home O2 GENERAL: In no apparent distress. HEENT: Normocephalic, atraumatic, pupils are equal and reactive, extraocular motions intact, oropharynx is pink and moist, there is no neck adenopathy or JVD noted. CHEST/RESPIRATORY: The thorax is free from signs of trauma. Lung sounds: course crackles remain. Right greater than left CARDIAC: Regular rate and rhythm. Normal S1 and S2, with murmurs; no gallops, or rubs. VASCULAR: 1+ edema in the lower extremities, 2+ peripheral pulses. ABDOMEN: soft, mildly distended, expected postoperative tenderness, JOSE site WNL INCISION: Surgical incision is clean, dry, and intact. There are no signs of cellulitis or infection noted. WOUNDS/DRAINS: Jose WNL, liley d/c tomorrow MUSCULOSKELETAL: Good range of motion of all major joints. Extremities without clubbing, cyanosis. NEUROLOGIC EXAM: Alert and oriented x 3. Speech normal. Follows commands. PSYCHIATRIC: Mood normal. SKIN: No rash or lesions. - Labs 09/19/17 00:30 09/19/17 00:30 Diabetes panel 09/19/17 Range/Units 00:30 Sodium 136 (136-145) mEq/L Potassium 3.5 (3.5-5.1) mEq/L Chloride 104 (98-107) mEq/L Carbon Dioxide 26 (23-29) mEq/L BUN 9 (8-23) mg/dL Creatinine 0.77 (0.70-1.30) mg/dL Glucose 118 H (70-105) mg/dL Calcium 7.9 L (8.6-10.3) mg/dL AST 125 H (13-39) Units/L ALT 98 H (7-52) Units/L Alkaline Phosphatase 90 (34-104) Units/L Albumin 2.6 L (3.5-5.7) g/dL Calcium panel 09/19/17 Range/Units 00:30 Calcium 7.9 L (8.6-10.3) mg/dL Albumin 2.6 L (3.5-5.7) g/dL Pituitary panel 09/19/17 Range/Units 00:30 Sodium 136 (136-145) mEq/L Potassium 3.5 (3.5-5.1) mEq/L Chloride 104 (98-107) mEq/L Carbon Dioxide 26 (23-29) mEq/L BUN 9 (8-23) mg/dL Creatinine 0.77 (0.70-1.30) mg/dL Glucose 118 H (70-105) mg/dL Calcium 7.9 L (8.6-10.3) mg/dL Adrenal panel 09/19/17 Range/Units 00:30 Sodium 136 (136-145) mEq/L Potassium 3.5 (3.5-5.1) mEq/L Chloride 104 (98-107) mEq/L Carbon Dioxide 26 (23-29) mEq/L BUN 9 (8-23) mg/dL Creatinine 0.77 (0.70-1.30) mg/dL Glucose 118 H (70-105) mg/dL Calcium 7.9 L (8.6-10.3) mg/dL Total Bilirubin 0.7 (0.3-1.0) mg/dL AST 125 H (13-39) Units/L ALT 98 H (7-52) Units/L Alkaline Phosphatase 90 (34-104) Units/L Albumin 2.6 L (3.5-5.7) g/dL - VTE Documentation of Mechanical Device: Intermittent pneumatic compression device Consult Discharge Plan - Plan Referrals: Huy Reyes DO [Primary Care Provider] - <Osmin Radford - Last Filed: 09/20/17 07:47> Date of Encounter: 09/20/17 - Assessment and Plan (1) Cholecystitis Current Visit: Yes Status: Acute Objective Vital Signs - Last 8 Hours Temp Pulse Resp BP Pulse Ox 09/20/17 06:40 99.2 F 79 16 143/87 90 09/20/17 03:39 15 92 09/20/17 03:38 98.9 F 71 15 134/92 93 09/19/17 23:58 16 94 Intake and Output 09/19/17 09/19/17 09/20/17 15:59 23:59 07:59 Intake Total 490 / 490 460 / 460 120 / 120 Output Total 1600 / 1600 1350 / 1350 450 / 450 Balance -1110 / -1110 -890 / -890 -330 / -330 Intake: IV Fluids 250 / 250 100 / 100 Levaquin Premix 750mg/150 mL 150 / 150 750 mg In 150 ml @ 100 mls/hr IVPB DAILY [facility] Rx#:[id number] Flagyl Premix 500 MG/100 ML 500 100 / 100 100 / 100 mg In 100 ml @ 100 mls/hr IVPB Q8HR [facility] Rx#:[id number] Oral 240 / 240 360 / 360 120 / 120 Output: Catheter 1600 / 1600 1350 / 1350 450 / 450 Wound Drainage 0 / 0 Right side abdomen 0 / 0 Other: Meal Breakfast Dinner Percent of Meal Consumed 100% 90% - Labs 09/20/17 04:21 09/20/17 04:21 Diabetes panel 09/20/17 Range/Units 04:21 Sodium 137 (136-145) mEq/L Potassium 3.9 (3.5-5.1) mEq/L Chloride 102 (98-107) mEq/L Carbon Dioxide 26 (23-29) mEq/L BUN 12 (8-23) mg/dL Creatinine 0.87 (0.70-1.30) mg/dL Glucose 106 H (70-105) mg/dL Calcium 8.2 L (8.6-10.3) mg/dL AST 145 H (13-39) Units/L ALT 123 H (7-52) Units/L Alkaline Phosphatase 96 (34-104) Units/L Albumin 2.9 L (3.5-5.7) g/dL Calcium panel 09/20/17 Range/Units 04:21 Calcium 8.2 L (8.6-10.3) mg/dL Albumin 2.9 L (3.5-5.7) g/dL Pituitary panel 09/20/17 Range/Units 04:21 Sodium 137 (136-145) mEq/L Potassium 3.9 (3.5-5.1) mEq/L Chloride 102 (98-107) mEq/L Carbon Dioxide 26 (23-29) mEq/L BUN 12 (8-23) mg/dL Creatinine 0.87 (0.70-1.30) mg/dL Glucose 106 H (70-105) mg/dL Calcium 8.2 L (8.6-10.3) mg/dL Adrenal panel 09/20/17 Range/Units 04:21 Sodium 137 (136-145) mEq/L Potassium 3.9 (3.5-5.1) mEq/L Chloride 102 (98-107) mEq/L Carbon Dioxide 26 (23-29) mEq/L BUN 12 (8-23) mg/dL Creatinine 0.87 (0.70-1.30) mg/dL Glucose 106 H (70-105) mg/dL Calcium 8.2 L (8.6-10.3) mg/dL Total Bilirubin 0.9 (0.3-1.0) mg/dL AST 145 H (13-39) Units/L ALT 123 H (7-52) Units/L Alkaline Phosphatase 96 (34-104) Units/L Albumin 2.9 L (3.5-5.7) g/dL - Attending Attestation I have personally seen and examined the patient. I have reviewed pertinent labs , imaging, progress notes, including this one. I agree with the above assessment and plan.
--- NOTE | 2017-09-19 14:19 | Pulmonology Consult Note ---
Date of Encounter: 09/19/17 Time of Encounter: 14:15 Assessment and Plan (1) Acute respiratory failure with hypoxia Current Visit: Yes Status: Acute The Acute Hypoxic respiratory failure secondary to Post operative atelectasis and Pulmonary edema due to Systolic heart failure Will do Incentive Spirometry and flutter Valve . There was only mimimal pleural effusion no safe enough pocket for Thoracentesis. (2) Acute systolic heart failure Current Visit: Yes Status: Acute Patient has acute systolic heart failure inspite of diuretic therapy patient is still Positive regarding I/O for the stay . I personally did a Lung ultrasound which showed Lung Rockets or Comet tail sign more suggestive of Pulmonary edema , When i did the Lung Ultrasound there is extensive Right sided Atelectasis with mild Pleural effusion not to a safe pocket to tap the fluid. Will do fluid restriction in diet as patient is not compliant with it . Will do Lasix 40 mg IV BID will see the response . (3) Pneumonia Current Visit: Yes Status: Acute Patient has Right lower pneumonia Vs atelectasis more in favor of post operative atelecatsis as this atelecatsis would have started preoperatively due to splinting of his diaphragm agree with Antibiotics for now . To continue Incentive spirometry . RT to do Q 6 flutter Valve therapy. Qualifiers: Pneumonia type: due to unspecified organism Laterality: right Lung location: lower lobe of lung Qualified Code(s): J18.1 - Lobar pneumonia, unspecified organism (4) Pleural effusion Current Visit: Yes Status: Acute very Mild Right sided pleural effusion most likely transduative with underlying heart failure with initial presentation had Bilateral Pleural effusion . History of Present Illness Consult date: 09/19/17 Requesting physician: Gillian Greco Reason for consult: dyspnea, hypoxemia, abnormal CXR/CT Chief complaint: Shortness of breadth Post Cholecystectomy History of present illness: 77 year old male with past medical history significant for HTN came with RUQ pain had a gangrenous cholecystitis had a laprascopic cholecystectomy developed post operative hypoxia patient pre operative work up showed Systolic dysfunction with EF of 40% with diastolic dysfunction with some pulmonary HTN .Pulmonary was consulted for evaluation of post operative hypoxic respiratory failure. Patient denies any chest pain or tightness dyspnea on exertion , Imaging showed Bilateral Pleural effusions with RLL consolidation Vs Atelectasis. Has some orthopnea denies any PND , denies any other significant abdominal pain especially the surgical site , denies any Neurological symptoms. Past Med Surg Social Fam HX - Past Medical History Medical history: hyperlipidemia, hypertension, kidney stones Additional medical history: prostate cancer. right eye retinal detachment Psychiatric history: no psych history - Past Surgical History Surgical History: non-contributory, cataract Additional surgical history: Sx for detached retinas - Social History Smoking Status: Never smoker Smokeless Tobacco Status: No Alcohol use: none Drug use: none Medications and Allergies Amlodipine Besylate 10 mg PO DAILY 09/18/17 [History] Omeprazole 20 mg PO BID 09/18/17 [History] 3 Allergy/AdvReac Type Severity Reaction Status Date / Time No Known Allergies Allergy Verified 09/12/17 09:49 All Systems: The remainder of the systems were reviewed and are negative Physical Examination Vital Signs: Vital Signs, Last 4 Hours Temp Pulse Resp BP Pulse Ox 09/19/17 13:15 90 09/19/17 11:17 98.3 F 75 16 127/85 91 Auscultation: right: diminished breath sounds (Right sided dminished breadth sounds ) Extremities: no edema Results - Laboratory Findings CBC and BMP: 09/19/17 00:30 09/19/17 00:30 PT/INR, D-dimer PT 16.7 Seconds (9.4-12.1) H 09/14/17 05:52 Abnormal lab findings: Abnormal lab results WBC 12.7 K/mcL (4.3-11.1) H 09/19/17 00:30 Immature Gran % 11.7 % (0-4) H 09/19/17 00:30 Band Neutrophils % 8.0 % (0-4) H 09/13/17 06:05 Reactive Lymphocytes Present (Not Present) A 09/17/17 04:55 PT 16.7 Seconds (9.4-12.1) H 09/14/17 05:52 Glucose 118 mg/dL (70-105) H 09/19/17 00:30 POC Glucose 165 mg/dL (70-99) H 09/14/17 17:47 Calcium 7.9 mg/dL (8.6-10.3) L 09/19/17 00:30 AST 125 Units/L (13-39) H 09/19/17 00:30 ALT 98 Units/L (7-52) H 09/19/17 00:30 B-Natriuretic Peptide 705 pg/mL (Less than 100) H 09/17/17 04:20 Serum Total Protein 4.8 g/dL (6.4-8.9) L 09/19/17 00:30 Albumin 2.6 g/dL (3.5-5.7) L 09/19/17 00:30 Globulin 2.2 g/dL (2.4-3.5) L 09/19/17 00:30 Ur Leukocyte Esterase Trace (Negative) H 09/16/17 13:48 Urine Microscopic RBC 3-5 per hpf (0-3) H 09/16/17 13:48 Ur Squamous Epith Cells Moderate per lpf (None-Few) H 09/16/17 13:48 Urine Mucus Moderate (Few) H 09/12/17 04:11 Ur Culture Indicated? YES (NO) A 09/16/17 13:48 - Microbiology Findings Microbiology Findings: Microbiology, Last 48 Hours 09/16/17 13:48 Urine Culture - Final Urine,Clean Catch No growth. - Clinical Findings Intake & Output: Intake & Output 09/18/17 09/19/17 09/19/17 23:59 07:59 15:59 Intake Total 100 / 100 100 / 100 490 / 490 Output Total 1105 / 1105 1175 / 1175 1600 / 1600 Balance -1005 / -1005 -1075 / -1075 -1110 / -1110 Weight 96.2 kg Consult Discharge Plan - Plan Referrals: Huy Reyes DO [Primary Care Provider] -
[2017-09-19] MEDS: Furosemide 40 MG/4 ML VIAL IVP SCH (16:50)
--- NOTE | 2017-09-19 17:42 | Urology - Consult Note ---
Date of Encounter: 09/19/17 Time of Encounter: 17:40 - Assessment and Plan (1) History of prostate cancer Current Visit: Yes Status: Acute Assessment and plan: Patient's most recent PSA is excellent. He will need long-term follow-up of his PSA. (2) Bilateral kidney stones Current Visit: Yes Status: Acute Assessment and plan: Patient stones are not obstructing at this time and do not require any intervention. We will continue to observe. (3) Acute urinary retention Current Visit: Yes Status: Acute Assessment and plan: Recommend to continue with patient's Wilson catheter. Also continue with Flomax upon discharge. He is scheduled on September 26 at 8 AM in my office for a voiding trial. Patient and are agreeable to this plan. Urology CN:HPI Consult date: 09/19/17 Reason for consult Urology: Other (urinary retention) Requesting physician: Gillian Greco History of present illness: Laureano is a 77-year-old male who was recently admitted to the hospital and underwent cholecystectomy. Patient has had difficulties with voiding since surgery. He has an indwelling catheter at this time. Patient has a history of prostate cancer with unknown [place] score. Patient states that his PSA was also low at time of diagnosis. He was treated by cryotherapy in roughly 2006. His most recent PSA was 0.55 in August 2017. Patient also with a history of kidney stones. Patient did have a CT scan done recently which revealed multiple bilateral small nonobstructing renal calculi. Patient denies any flank pain at this time. No fevers. Patient tolerating catheter well. Patient did state that he had some nocturia over the past few months 2-3 times per night. Past Med Surg Social Fam HX - Past Medical History Medical history: hyperlipidemia, hypertension, kidney stones Additional medical history: prostate cancer. right eye retinal detachment Psychiatric history: no psych history - Past Surgical History Surgical History: non-contributory, cataract Additional surgical history: Sx for detached retinas - Social History Smoking Status: Never smoker Smokeless Tobacco Status: No Alcohol use: none Drug use: none - Additional Family History Additional family history: Brother(s): alive, agent orange exposure, diagnosed with No History. Father: 63 yrs, COLON CANCER, diagnosed with Cancer. Sister(s): alive. Son(s): alive, alive and well one with htn, diagnosed with Hypertension. Mother: 86 yrs, ? lung cancer, , diagnosed with Cancer. 1 brother(s) , 1 sister(s) - healthy. 2 son(s) - healthy. Medications and Allergies Amlodipine Besylate 10 mg PO DAILY 09/18/17 [History] Omeprazole 20 mg PO BID 09/18/17 [History] 3 Allergy/AdvReac Type Severity Reaction Status Date / Time No Known Allergies Allergy Verified 09/12/17 09:49 Review of Systems - Constitutional no chills, no fever(s) - EENT Nose, mouth and throat: no dizziness - Cardiovascular no chest pain, no dyspnea - Respiratory no cough, no dyspnea - Gastrointestinal no abdominal pain, no nausea, no vomiting - Genitourinary as per HPI - Musculoskeletal no back pain, no numbness - Integumentary no lesions, no swelling, no unusual bruising - Neurological no confusion, no syncope, no weakness - Psychiatric no confusion, no depression Exam Initial Vital Signs Temp Pulse Resp BP Pulse Ox 98.5 F 83 18 136/85 90 09/12/17 03:38 09/12/17 03:38 09/12/17 03:38 09/12/17 03:38 09/12/17 03:38 General/Neuological: alert and oriented x 3 Eyes: normal pupils, non-icteric Neck: no lymphadenopathy noted, supple to touch Cardiovascular: RRR, no murmurs Respiratory: normal respiratory effort, clear bilaterally ABD: soft, nontender, no masses palpated, good bowel sounds incisions healing well Back: no pain on percussion bilaterally : normal phallus, with catheter in place draining clear urine normal scrotum, testicles and epididymides normal, urethral meatus normal. Skin: no rashes noted Musculoskeletal: normal gait, FROMx4 Urology Results - Labs 09/19/17 00:30 09/19/17 00:30 Abnormal lab results WBC 12.7 K/mcL (4.3-11.1) H 09/19/17 00:30 Immature Gran % 11.7 % (0-4) H 09/19/17 00:30 Band Neutrophils % 8.0 % (0-4) H 09/13/17 06:05 Reactive Lymphocytes Present (Not Present) A 09/17/17 04:55 PT 16.7 Seconds (9.4-12.1) H 09/14/17 05:52 Glucose 118 mg/dL (70-105) H 09/19/17 00:30 POC Glucose 165 mg/dL (70-99) H 09/14/17 17:47 Calcium 7.9 mg/dL (8.6-10.3) L 09/19/17 00:30 AST 125 Units/L (13-39) H 09/19/17 00:30 ALT 98 Units/L (7-52) H 09/19/17 00:30 B-Natriuretic Peptide 705 pg/mL (Less than 100) H 09/17/17 04:20 Serum Total Protein 4.8 g/dL (6.4-8.9) L 09/19/17 00:30 Albumin 2.6 g/dL (3.5-5.7) L 09/19/17 00:30 Globulin 2.2 g/dL (2.4-3.5) L 09/19/17 00:30 Ur Leukocyte Esterase Trace (Negative) H 09/16/17 13:48 Urine Microscopic RBC 3-5 per hpf (0-3) H 09/16/17 13:48 Ur Squamous Epith Cells Moderate per lpf (None-Few) H 09/16/17 13:48 Urine Mucus Moderate (Few) H 09/12/17 04:11 Ur Culture Indicated? YES (NO) A 09/16/17 13:48 Diabetes panel 09/19/17 Range/Units 00:30 Sodium 136 (136-145) mEq/L Potassium 3.5 (3.5-5.1) mEq/L Chloride 104 (98-107) mEq/L Carbon Dioxide 26 (23-29) mEq/L BUN 9 (8-23) mg/dL Creatinine 0.77 (0.70-1.30) mg/dL Glucose 118 H (70-105) mg/dL Calcium 7.9 L (8.6-10.3) mg/dL AST 125 H (13-39) Units/L ALT 98 H (7-52) Units/L Alkaline Phosphatase 90 (34-104) Units/L Albumin 2.6 L (3.5-5.7) g/dL Calcium panel 09/19/17 Range/Units 00:30 Calcium 7.9 L (8.6-10.3) mg/dL Albumin 2.6 L (3.5-5.7) g/dL Pituitary panel 09/19/17 Range/Units 00:30 Sodium 136 (136-145) mEq/L Potassium 3.5 (3.5-5.1) mEq/L Chloride 104 (98-107) mEq/L Carbon Dioxide 26 (23-29) mEq/L BUN 9 (8-23) mg/dL Creatinine 0.77 (0.70-1.30) mg/dL Glucose 118 H (70-105) mg/dL Calcium 7.9 L (8.6-10.3) mg/dL Adrenal panel 09/19/17 Range/Units 00:30 Sodium 136 (136-145) mEq/L Potassium 3.5 (3.5-5.1) mEq/L Chloride 104 (98-107) mEq/L Carbon Dioxide 26 (23-29) mEq/L BUN 9 (8-23) mg/dL Creatinine 0.77 (0.70-1.30) mg/dL Glucose 118 H (70-105) mg/dL Calcium 7.9 L (8.6-10.3) mg/dL Total Bilirubin 0.7 (0.3-1.0) mg/dL AST 125 H (13-39) Units/L ALT 98 H (7-52) Units/L Alkaline Phosphatase 90 (34-104) Units/L Albumin 2.6 L (3.5-5.7) g/dL All other labs normal. - Imaging CT scan - abdomen: image reviewed CT scan - pelvis: image reviewed Consult Discharge Plan - Plan Referrals: Huy Reyes DO [Primary Care Provider] -
[2017-09-19] MEDS: Albuterol Neb 0.63 MG/3 ML VIAL IH SCH ×2 (18:06→19:26)
[2017-09-20] MEDS: Ipratropium/Albuterol Neb 3 ML IH SCH ×6 (03:37→23:09)
[2017-09-20 05:12] LABS: Hematocrit 42.7 % (37.5-50.1); Hemoglobin 14.7 g/dL (12.9-16.9); Mean Corpuscular HGB Conc 34.4 g/dL (31.6-35.5); Mean Corpuscular Hemoglobin 31.3 pg (28.0-33.3); Mean Platelet Volume 9.7 fL (9.4-12.4); Monocytes # 1.2 K/mcL (0.0-1.3); Nucleated Red Blood Cells 0.1 /100 WBC (0); Platelet Count 323 K/mcL (140-400); Red Blood Count 4.69 M/mcL (4.19-5.50); Red Cell Distribution Width 14.6 % (11.5-14.5)
[2017-09-20 05:27] LABS: Alanine Aminotransferase 123 Units/L (7-52); Albumin 2.9 g/dL (3.5-5.7); Albumin/Globulin Ratio 1.2 (1.1-2.2); Alkaline Phosphatase 96 Units/L (34-104); Aspartate Amino Transferase 145 Units/L (13-39); BUN/Creatinine Ratio 14 (6-26); Bilirubin,Direct 0.4 mg/dL (0.0-0.2); Bilirubin,Indirect 0.5 mg/dL (0.0-1.2); Bilirubin,Total 0.9 mg/dL (0.3-1.0); Blood Urea Nitrogen 12 mg/dL (8-23); Calcium 8.2 mg/dL (8.6-10.3); Carbon Dioxide 26 mEq/L (23-29); Chloride 102 mEq/L (98-107); Globulin 2.4 g/dL (2.4-3.5); Glucose 106 mg/dL (70-105); Osmolality,Calculated 284 (280-300); Potassium 3.9 mEq/L (3.5-5.1); Sodium 137 mEq/L (136-145); Total Protein 5.3 g/dL (6.4-8.9); eGFR For African Americans > 60 (> 60); eGFR For Non-African Americans > 60 (> 60)
[2017-09-20 05:48] LABS: Lymphocytes # 3.3 K/mcL (0.6-4.6); Neutrophils # 10.6 K/mcL (1.6-8.9); Toxic Granulation Present (Not Present)
[2017-09-20 05:49] LABS: Platelet Estimate Normal (Normal); Reactive Lymphocytes Present (Not Present)
[2017-09-20] MEDS: *HR* Enoxaparin 40 MG/0.4 ML SYRINGE SQ SCH (06:13)
[2017-09-20] MEDS ORDERED: Isovue-370 500 ML INFUS..BTL IV ONE ×2 (07:43)
[2017-09-20] MEDS: Metoprolol XL (24 HR) Succ 25 MG TAB.ER.24H PO SCH (08:47)
[2017-09-20] MEDS: Furosemide 40 MG/4 ML VIAL IVP SCH ×2 (08:47→16:24)
[2017-09-20] MEDS: MetroNIDAZOLE 500 MG/100 ML 500 MG/100 ML BAG IVPB SCH ×2 (08:47→16:24)
--- NOTE | 2017-09-20 08:47 | General Surgery Progress Note ---
Addendum entered and electronically signed by Gillian Greco CNP 09/20/17 09: 47: Inadvertently left assessment out of document. ROS: he reports difficulty breathing has improved. He states the lower extremity edema and feeling of early fullness Shortness of breath with activity remains. He denies headache, dizziness, chest pain, lightheadedness, constipation, abdominal pain, or urinary pain. He states he has been following the fluid restrictions. VITAL SIGNS: Reviewed. See [facility] GENERAL: In no apparent distress. HEENT: Normocephalic, atraumatic, pupils are equal and reactive, extraocular motions intact, oropharynx is pink and moist, there is no neck adenopathy or JVD noted. CHEST/RESPIRATORY: The thorax is free from signs of trauma. Lung sounds: improved today. Remain decreased but only find crackles in the bases. CARDIAC: Regular rate and rhythm. Normal S1 and S2, with murmurs. No gallops or rubs. VASCULAR: 1+ Edema LLE. 2+ peripheral pulses. ABDOMEN: soft, distended, active bowel sounds, expected postoperative tenderness INCISION: Surgical incision is clean, dry, and intact. There are no signs of cellulitis or infection noted. WOUNDS/DRAINS: ARCHANA site is within normal limits. There is no drainage in the bulb. MUSCULOSKELETAL: Good range of motion of all major joints. Extremities without clubbing, cyanosis. NEUROLOGIC EXAM: Alert and oriented x 3. Speech normal. Follows commands. PSYCHIATRIC: Mood normal. SKIN: No rash or lesions. I did extensively review his clinical course, new diagnoses, gallbladder pathology, and treatment plan with the patient, his , and the friend who is at bedside. Patient and verbalized understanding and adherence with the plan. Further recommendations pending CT Original Note: <Gillian Greco - Last Filed: 09/20/17 08:21> Date of Encounter: 09/20/17 Time of Encounter: 08:21 - Assessment and Plan (1) Cholecystitis Current Visit: Yes Status: Acute Date of procedure: 09/14/17 Pre-op diagnosis: acute cholecystitis Post-op diagnosis: other (gangrenous cholecystitis) Procedure: robotic cholecystectomy with ICG intraoperative cholangiogram Implants: 19F ariadna drain in liver bed Complications: none POD#6 as above. Abdominal discomfort is overall controlled. His ARCHANA is WNL Summary of clinical course: He is on IV Levaquin (day 2 started 09/17-switched from Cipro) and Flagyl (day 7 started 09/20). Previously on Zosyn (one day 09/12-), 4 days of cipro (09/13-) Cardiology consulted for new LBBB, stress test with prior infarct, mild pul HTN on echo, and felt pt appeared euvolemic. Cardiology reconsulted for CHF 09/16, recommended outpatient follow-up and no need for OP diuretics. Pulmonology consulted 09/19 for further recommendations regarding pleural effusions, PNA, and increased to 2 demands versus CHF urology consultative for recommendations regarding acute urinary retention in the setting of history of prostate cancer and renal calculi He has qualified for home O2, but may need this process repeated as clinical course continues -CT chest 09/16/2017 with small moderate right pleural effusion, right lower lobe consolidation most indicative of pneumonia, hiatal hernia and some left lower lobe 7 segmental atelectasis around hernia. Partially imaged Peg tube approaching the right side terminating in approximately 4.5 cm heterogenous collection with gas pockets. -CXR 09/15,, with pleural effusions 09/20/2017: WBC increased to 15.1 and with reactive lymphocytes and toxic granulation. Total bili is normal, direct Bilirubin had returned to normal , but has increased to 0.4 His AST and ALT area gain increased 63>>64>>125>> 145 and 81>>76>>98>>123 respectively. His oxygen demand had decreased on 2007 but notably he has returned 4 L nasal cannula with staff at 90%. He is febrile today 99.2. He is diuresed 18.24 lbs yesterday and has continued pulmonary HTN per pulm consult. He has received 40 mg IV Lasix on 09/15, 09/16 and 09/19 as well as an additional 20 mg on 09/16 and now is on 40 mg IV lasix BID per pulmonary. Plan: continue supportive care and discomfort management Cardiac diet with fluid restrictions continue G.I. and DVT prophylaxis ambulate and halls TID out of bed to chair for all trays CT chest abdomen and pelvis with Iv and oral contrast to reevaluate the pulmonary and abdominal findings as above. Continue hospital care as above (2) Pleural effusion Current Visit: Yes Status: Acute Per pulmonary consult acute respiratory failure secondary to postoperative atelectasis in pulmonary edema due to systolic heart failure. Minimal pleural effusion withpocket for thoracentesis. Patient has acute systolic heart failure inspite of diuretic therapy patient is still Positive regarding I/O for the stay . I personally did a Lung ultrasound which showed Lung Rockets or Comet tail sign more suggestive of Pulmonary edema , When i did the Lung Ultrasound there is extensive Right sided Atelectasis with mild Pleural effusion not to a safe pocket to tap the fluid. Will do fluid restriction in diet as patient is not compliant with it . Will do Lasix 40 mg IV BID will see the response Patient has Right lower pneumonia Vs atelectasis more in favor of post operative atelecatsis as this atelecatsis would have started preoperatively due to splinting of his diaphragm agree with Antibiotics for now . To continue Incentive spirometry . RT to do Q 6 flutter Valve therapy. very Mild Right sided pleural effusion most likely transduative with underlying heart failure with initial presentation had Bilateral Pleural effusion . CT chest/abdomen/pelvis as assessment and plan above. Otherwise continue assessment and plan above per pulmonary consult. (3) Elevated LFTs Current Visit: Yes Status: Acute Abdominal pathology vs CHF. See a/p above (4) Acute systolic heart failure Current Visit: Yes Status: Acute See assessment and plan above. Repeat BNP ordered. Cardiac diet fluid restrictions continue diuresis will call cardiology back. (5) Acute urinary retention Current Visit: Yes Status: Acute continue Flomax and Wilson catheter per urology consult. Patient has a follow- up on September 29 at 8 AM with urology. (6) Paraesophageal hiatal hernia Current Visit: Yes Status: Acute Paraesophageal hernia vs sliding hiatal hernia (per radiology read the GE junction is in the appropriate location). Regardless, this does not seem to be the cause of his current acute issues; however, will require follow-up for intervention. (7) Abnormal CT of the abdomen Current Visit: Yes Status: Acute Atherosclerosis, nephrolithiasis, stable bilateral renal cysts, renal cortical scarring, stable hepatic cysts, bilateral common iliac artery aneurysms Follow-up with PCP at d/c CT/CT angio abdomen pelvis IMPRESSION: 1. Unremarkable CTA appearance of the aorta, without evidence of aneurysm or dissection. 2. No CT evidence of a pulmonary embolism. 3. Dependent atelectasis within the bilateral lungs, without acute intrapulmonary findings. 4. Bilateral nonobstructing nephrolithiasis, with an additional layering calculus within the urinary bladder. However, there is no evidence of a ureteral calculus or hydronephrosis. 5. Stable bilateral renal cysts with left renal cortical scarring. 6. Cholelithiasis. 7. Stable hepatic cysts. 8. Stable large hiatal hernia. 9. Mild bilateral common iliac artery aneurysms. CT/CT chest wo con IMPRESSION: 1. Right small to moderate pleural effusion with extensive right lower lobe consolidation most indicative of pneumonia. 2. Moderate size hiatal hernia with some left lower lobe subsegmental atelectasis around the hernia. 3. Partially imaged presumed percutaneous drainage catheter approaching from the right side and terminating in a 4.5 cm heterogeneous collection with some gas pockets in the posterior right lobe of liver near the selvin hepatis. There is some surrounding inflammation changes. . Findings may represent abscess or hematoma. Better evaluation may be accomplished with contrast-enhanced CT abdomen. Objective Vital Signs - Last 8 Hours Temp Pulse Resp BP Pulse Ox 09/20/17 06:40 99.2 F 79 16 143/87 90 09/20/17 03:39 15 92 09/20/17 03:38 98.9 F 71 15 134/92 93 Intake and Output 09/19/17 09/20/17 09/20/17 23:59 07:59 15:59 Intake Total 460 / 460 120 / 120 Output Total 1350 / 1350 450 / 450 Balance -890 / -890 -330 / -330 Intake: IV Fluids 100 / 100 Flagyl Premix 500 MG/100 ML 500 100 / 100 mg In 100 ml @ 100 mls/hr IVPB Q8HR [facility] Rx#:[id number] Oral 360 / 360 120 / 120 Output: Catheter 1350 / 1350 450 / 450 Other: Meal Dinner Percent of Meal Consumed 90% - Labs 09/20/17 04:21 09/20/17 04:21 Diabetes panel 09/20/17 Range/Units 04:21 Sodium 137 (136-145) mEq/L Potassium 3.9 (3.5-5.1) mEq/L Chloride 102 (98-107) mEq/L Carbon Dioxide 26 (23-29) mEq/L BUN 12 (8-23) mg/dL Creatinine 0.87 (0.70-1.30) mg/dL Glucose 106 H (70-105) mg/dL Calcium 8.2 L (8.6-10.3) mg/dL AST 145 H (13-39) Units/L ALT 123 H (7-52) Units/L Alkaline Phosphatase 96 (34-104) Units/L Albumin 2.9 L (3.5-5.7) g/dL Calcium panel 09/20/17 Range/Units 04:21 Calcium 8.2 L (8.6-10.3) mg/dL Albumin 2.9 L (3.5-5.7) g/dL Pituitary panel 09/20/17 Range/Units 04:21 Sodium 137 (136-145) mEq/L Potassium 3.9 (3.5-5.1) mEq/L Chloride 102 (98-107) mEq/L Carbon Dioxide 26 (23-29) mEq/L BUN 12 (8-23) mg/dL Creatinine 0.87 (0.70-1.30) mg/dL Glucose 106 H (70-105) mg/dL Calcium 8.2 L (8.6-10.3) mg/dL Adrenal panel 09/20/17 Range/Units 04:21 Sodium 137 (136-145) mEq/L Potassium 3.9 (3.5-5.1) mEq/L Chloride 102 (98-107) mEq/L Carbon Dioxide 26 (23-29) mEq/L BUN 12 (8-23) mg/dL Creatinine 0.87 (0.70-1.30) mg/dL Glucose 106 H (70-105) mg/dL Calcium 8.2 L (8.6-10.3) mg/dL Total Bilirubin 0.9 (0.3-1.0) mg/dL AST 145 H (13-39) Units/L ALT 123 H (7-52) Units/L Alkaline Phosphatase 96 (34-104) Units/L Albumin 2.9 L (3.5-5.7) g/dL - VTE Documentation of Mechanical Device: Intermittent pneumatic compression device Consult Discharge Plan - Plan Referrals: Huy Reyes DO [Primary Care Provider] - <Osmin Radford - Last Filed: 09/20/17 16:16> Date of Encounter: 09/20/17 - Assessment and Plan (1) Cholecystitis Current Visit: Yes Status: Acute Objective Vital Signs - Last 8 Hours Temp Pulse Resp BP Pulse Ox 09/20/17 15:09 97.7 F 86 15 83/58 90 09/20/17 11:17 18 91 09/20/17 10:53 97.8 F 74 15 120/76 92 09/20/17 08:45 92 Intake and Output 09/20/17 09/20/17 09/20/17 07:59 15:59 23:59 Intake Total 220 / 220 0 / 0 Output Total 450 / 450 1150 / 1150 Balance -230 / -230 -1150 / -1150 Intake: IV Fluids 100 / 100 Flagyl Premix 500 MG/100 ML 500 100 / 100 mg In 100 ml @ 100 mls/hr IVPB Q8HR [facility] Rx#:[id number] Oral 120 / 120 0 / 0 Output: Catheter 450 / 450 1150 / 1150 Wound Drainage 0 / 0 Right side abdomen 0 / 0 Other: Meal Lunch Percent of Meal Consumed 10% Weight 87.657 kg Patient Weight 09/20/17 23:59 Weight 87.657 kg - Labs 09/20/17 04:21 09/20/17 04:21 Diabetes panel 09/20/17 Range/Units 04:21 Sodium 137 (136-145) mEq/L Potassium 3.9 (3.5-5.1) mEq/L Chloride 102 (98-107) mEq/L Carbon Dioxide 26 (23-29) mEq/L BUN 12 (8-23) mg/dL Creatinine 0.87 (0.70-1.30) mg/dL Glucose 106 H (70-105) mg/dL Calcium 8.2 L (8.6-10.3) mg/dL AST 145 H (13-39) Units/L ALT 123 H (7-52) Units/L Alkaline Phosphatase 96 (34-104) Units/L Albumin 2.9 L (3.5-5.7) g/dL Calcium panel 09/20/17 Range/Units 04:21 Calcium 8.2 L (8.6-10.3) mg/dL Albumin 2.9 L (3.5-5.7) g/dL Pituitary panel 09/20/17 Range/Units 04:21 Sodium 137 (136-145) mEq/L Potassium 3.9 (3.5-5.1) mEq/L Chloride 102 (98-107) mEq/L Carbon Dioxide 26 (23-29) mEq/L BUN 12 (8-23) mg/dL Creatinine 0.87 (0.70-1.30) mg/dL Glucose 106 H (70-105) mg/dL Calcium 8.2 L (8.6-10.3) mg/dL Adrenal panel 09/20/17 Range/Units 04:21 Sodium 137 (136-145) mEq/L Potassium 3.9 (3.5-5.1) mEq/L Chloride 102 (98-107) mEq/L Carbon Dioxide 26 (23-29) mEq/L BUN 12 (8-23) mg/dL Creatinine 0.87 (0.70-1.30) mg/dL Glucose 106 H (70-105) mg/dL Calcium 8.2 L (8.6-10.3) mg/dL Total Bilirubin 0.9 (0.3-1.0) mg/dL AST 145 H (13-39) Units/L ALT 123 H (7-52) Units/L Alkaline Phosphatase 96 (34-104) Units/L Albumin 2.9 L (3.5-5.7) g/dL - Attending Attestation I have personally seen and examined the patient. I have reviewed pertinent labs , imaging, progress notes, including this one. I agree with the above assessment and plan and wish to include the following... s/p robotic choleycystectomy; now with atelectasis and prolonged requirement for oxygen; leukocytosis; CT demosntrates small abscess; diet as tolerated cont abx consult IR for drainage
[2017-09-20] MEDS: Aspirin 81 MG TAB.CHEW PO SCH (08:48)
[2017-09-20] MEDS: Levofloxacin 750 MG/150 ML 750 MG/150 ML BAG IVPB SCH (08:48)
[2017-09-20] MEDS ORDERED: 0.9 % Sodium Chloride 250 ML IVC PRN (17:04)
--- NOTE | 2017-09-20 21:30 | Pulmonology Progress Note ---
Date of Encounter: 09/20/17 Time of Encounter: 11:30 Assessment and Plan (1) Acute respiratory failure with hypoxia Current Visit: Yes Status: Acute Secondary to systolic heart failure and Post operative atelectasis /pneumonia (2) Acute systolic heart failure Current Visit: Yes Status: Acute To continue diuresis , and fluid restriction since he is getting contrast it is OK to take PO intake . (3) Pneumonia Current Visit: Yes Status: Acute The Right lower lobe opacity is more concerning of post operative atelectasis rather than pneumonia. To continue antibiotics as per primary team . Patient is doing incentive spirometry and Flutter valve,AccuPAP . RLL consolidative opacity is lot improved with Accupap and IS , Flutter valve as evidenced by today CT Chest Qualifiers: Pneumonia type: due to unspecified organism Laterality: right Lung location: lower lobe of lung Qualified Code(s): J18.1 - Lobar pneumonia, unspecified organism (4) Pleural effusion Current Visit: Yes Status: Acute Repeat CT chest showed Mild Pleural effusion most likely transduative there is not enough fluid to tap any way , Subjective Principal diagnosis: CHF, s/p lap tabitha Interval history: Patient is sitting in chair he is breathing is lot better , after flutter valve he coughs a lot but not much sputum production denies any abdominal pain , denies any fever or chills . Due to leukocytosis concern for gallbladder fossa abscess patient is getting CT abdomen and pelvis. Objective PUL Vital signs: Last Vital Signs Temp 98.6 F 09/20/17 19:23 Pulse 76 09/20/17 19:23 Resp 17 09/20/17 19:28 BP 114/74 09/20/17 19:23 Pulse Ox 92 09/20/17 19:28 Auscultation: right: diminished breath sounds, other (some scattered crackles ) Results - Laboratory Findings CBC and BMP: 09/20/17 04:21 09/20/17 04:21 PT/INR, D-dimer PT 16.7 Seconds (9.4-12.1) H 09/14/17 05:52 Abnormal lab findings: Abnormal lab results WBC 15.1 K/mcL (4.3-11.1) H 09/20/17 04:21 RDW 14.6 % (11.5-14.5) H 09/20/17 04:21 Immature Gran % 11.7 % (0-4) H 09/19/17 00:30 Neutrophils # 10.6 K/mcL (1.6-8.9) H 09/20/17 04:21 Nucleated RBCs/100 WBC 0.1 /100 WBC (0) H 09/20/17 04:21 Reactive Lymphocytes Present (Not Present) A 09/20/17 04:21 Toxic Granulation Present (Not Present) A 09/20/17 04:21 PT 16.7 Seconds (9.4-12.1) H 09/14/17 05:52 Glucose 106 mg/dL (70-105) H 09/20/17 04:21 POC Glucose 165 mg/dL (70-99) H 09/14/17 17:47 Calcium 8.2 mg/dL (8.6-10.3) L 09/20/17 04:21 Direct Bilirubin 0.4 mg/dL (0.0-0.2) H 09/20/17 04:21 AST 145 Units/L (13-39) H 09/20/17 04:21 ALT 123 Units/L (7-52) H 09/20/17 04:21 B-Natriuretic Peptide 641 pg/mL (Less than 100) H 09/20/17 04:21 Serum Total Protein 5.3 g/dL (6.4-8.9) L 09/20/17 04:21 Albumin 2.9 g/dL (3.5-5.7) L 09/20/17 04:21 Ur Leukocyte Esterase Trace (Negative) H 09/16/17 13:48 Urine Microscopic RBC 3-5 per hpf (0-3) H 09/16/17 13:48 Ur Squamous Epith Cells Moderate per lpf (None-Few) H 09/16/17 13:48 Urine Mucus Moderate (Few) H 09/12/17 04:11 Ur Culture Indicated? YES (NO) A 09/16/17 13:48 - Clinical Findings Intake & Output: Intake & Output 09/20/17 09/20/17 09/20/17 07:59 15:59 23:59 Intake Total 220 / 220 1300 / 1300 300 / 300 Output Total 450 / 450 1150 / 1150 1200 / 1200 Balance -230 / -230 150 / 150 -900 / -900 Weight 87.657 kg - VTE Documentation of Mechanical Device: Intermittent pneumatic compression device Consult Discharge Plan - Plan Referrals: Huy Reyes DO [Primary Care Provider] -
[2017-09-21] MEDS: MetroNIDAZOLE 500 MG/100 ML 500 MG/100 ML BAG IVPB SCH (00:23)
[2017-09-21] MEDS: Ipratropium/Albuterol Neb 3 ML IH SCH ×6 (04:02→23:27)
[2017-09-21 06:28] LABS: Hematocrit 42.1 % (37.5-50.1); Hemoglobin 14.5 g/dL (12.9-16.9); Mean Corpuscular HGB Conc 34.4 g/dL (31.6-35.5); Mean Corpuscular Hemoglobin 31.1 pg (28.0-33.3); Mean Corpuscular Volume 90.3 fL (83.0-100.0); Mean Platelet Volume 9.6 fL (9.4-12.4); Platelet Count 324 K/mcL (140-400); Red Blood Count 4.66 M/mcL (4.19-5.50); Red Cell Distribution Width 14.5 % (11.5-14.5)
[2017-09-21 06:33] LABS: INR 1.5; Prothrombin Time 15.9 Seconds (9.4-12.1)
[2017-09-21 06:44] LABS: Alanine Aminotransferase 95 Units/L (7-52); Albumin 2.8 g/dL (3.5-5.7); Albumin/Globulin Ratio 1.2 (1.1-2.2); Alkaline Phosphatase 88 Units/L (34-104); Aspartate Amino Transferase 81 Units/L (13-39); BUN/Creatinine Ratio 15 (6-26); Bilirubin,Direct 0.4 mg/dL (0.0-0.2); Bilirubin,Indirect 0.4 mg/dL (0.0-1.2); Bilirubin,Total 0.8 mg/dL (0.3-1.0); Blood Urea Nitrogen 13 mg/dL (8-23); Calcium 8.1 mg/dL (8.6-10.3); Carbon Dioxide 28 mEq/L (23-29); Chloride 100 mEq/L (98-107); Globulin 2.3 g/dL (2.4-3.5); Glucose 118 mg/dL (70-105); Osmolality,Calculated 283 (280-300); Potassium 3.6 mEq/L (3.5-5.1); Sodium 136 mEq/L (136-145); Total Protein 5.1 g/dL (6.4-8.9); eGFR For African Americans > 60 (> 60); eGFR For Non-African Americans > 60 (> 60)
[2017-09-21 07:21] LABS: Lymphocytes # 0.9 K/mcL (0.6-4.6); Monocytes # 0.3 K/mcL (0.0-1.3); Neutrophils # 13.4 K/mcL (1.6-8.9); Platelet Estimate Normal (Normal)
--- NOTE | 2017-09-21 08:10 | General Surgery Progress Note ---
Date of Encounter: 09/21/17 Time of Encounter: 08:08 - Assessment and Plan (1) Cholecystitis Current Visit: Yes Status: Acute POD#7 s/p robotic tabitha with iCG IOC; tolerating sips of clears; eval by IR for drain; reg diet after d/c taniya today 6 min oxygen test poss d/c today vs tomorrow Subjective Patient reports: no new complaints, afebrile Objective Vital Signs - Last 8 Hours Temp Pulse Resp BP Pulse Ox 09/21/17 06:19 98.7 F 73 16 130/72 94 09/21/17 04:24 98.7 F 89 16 131/78 93 09/21/17 04:02 18 93 Intake and Output 09/20/17 09/21/17 09/21/17 23:59 07:59 15:59 Intake Total 300 / 300 120 / 120 Output Total 1200 / 1200 650 / 650 Balance -900 / -900 -530 / -530 Intake: IV Fluids 100 / 100 Flagyl Premix 500 MG/100 ML 500 100 / 100 mg In 100 ml @ 100 mls/hr IVPB Q8HR [facility] Rx#:[id number] Oral 200 / 200 120 / 120 Output: Catheter 1200 / 1200 650 / 650 Wound Drainage 0 / 0 Right side abdomen 0 / 0 Other: Meal Dinner Percent of Meal Consumed 5% # Bowel Movements 0 - General physical appearance no distress - Respiratory normal expansion, normal respiratory effort - Cardiovascular Cardiovascular exam: Present: RRR - Abdomen Abdomen: Present: soft, non tender - Incision Incision: Present: clean and dry, intact - Neurologic CN 2-12 grossly intact - Musculoskeletal normal posture - Psychiatric oriented to time, oriented to person, oriented to place - Labs 09/21/17 05:49 09/21/17 05:49 Diabetes panel 09/21/17 Range/Units 05:49 Sodium 136 (136-145) mEq/L Potassium 3.6 (3.5-5.1) mEq/L Chloride 100 (98-107) mEq/L Carbon Dioxide 28 (23-29) mEq/L BUN 13 (8-23) mg/dL Creatinine 0.86 (0.70-1.30) mg/dL Glucose 118 H (70-105) mg/dL Calcium 8.1 L (8.6-10.3) mg/dL AST 81 H (13-39) Units/L ALT 95 H (7-52) Units/L Alkaline Phosphatase 88 (34-104) Units/L Albumin 2.8 L (3.5-5.7) g/dL Calcium panel 09/21/17 Range/Units 05:49 Calcium 8.1 L (8.6-10.3) mg/dL Albumin 2.8 L (3.5-5.7) g/dL Pituitary panel 09/21/17 Range/Units 05:49 Sodium 136 (136-145) mEq/L Potassium 3.6 (3.5-5.1) mEq/L Chloride 100 (98-107) mEq/L Carbon Dioxide 28 (23-29) mEq/L BUN 13 (8-23) mg/dL Creatinine 0.86 (0.70-1.30) mg/dL Glucose 118 H (70-105) mg/dL Calcium 8.1 L (8.6-10.3) mg/dL Adrenal panel 09/21/17 Range/Units 05:49 Sodium 136 (136-145) mEq/L Potassium 3.6 (3.5-5.1) mEq/L Chloride 100 (98-107) mEq/L Carbon Dioxide 28 (23-29) mEq/L BUN 13 (8-23) mg/dL Creatinine 0.86 (0.70-1.30) mg/dL Glucose 118 H (70-105) mg/dL Calcium 8.1 L (8.6-10.3) mg/dL Total Bilirubin 0.8 (0.3-1.0) mg/dL AST 81 H (13-39) Units/L ALT 95 H (7-52) Units/L Alkaline Phosphatase 88 (34-104) Units/L Albumin 2.8 L (3.5-5.7) g/dL - VTE Documentation of Mechanical Device: Intermittent pneumatic compression device Consult Discharge Plan - Plan Referrals: Huy Reyes DO [Primary Care Provider] -
[2017-09-21] MEDS: Furosemide 40 MG/4 ML VIAL IVP SCH ×2 (08:31→17:55)
[2017-09-21] MEDS ORDERED: *HR* FentaNYL (PF) 100 MCG/2 ML VIAL IVP ONE (11:15)
[2017-09-21] MEDS ORDERED: *HR* Midazolam HCl 2 MG/2 ML VIAL IVP ONE (11:15)
[2017-09-21] MEDS ORDERED: 0.9 % Sodium Chloride 500 ML ONE (11:20)
--- NOTE | 2017-09-21 11:38 | IR Procedure Note ---
Date of procedure: 09/21/17 Consent Obtained: Verbal consent, Written consent Timeout: Correct patient and procedure verified, Correct site verified, Time out performed, Skin prep completed Local anesthetic: Lidocaine 1% Indications: Post operative abscess Procedure Performed: CT guided drain placement Was there an school office assistant present: No Site/Technique: CT guided placement of an abdominal drain Results/Findings: 10 Swazi drain placed Estimated blood loss (cc): 2 Complications: None; Tolerated procedure well Post Procedure Treatment Plan: Continue inpatient care Specimen: 30 cc dark brown fluid
[2017-09-21] MEDS: levoFLOXacin 750 MG TABLET PO SCH (12:20)
[2017-09-21] MEDS: metroNIDAZOLE 500 MG TABLET PO SCH ×3 (12:20→20:11)
[2017-09-21] MEDS: Aspirin 81 MG TAB.CHEW PO SCH (12:20)
[2017-09-21] MEDS: Metoprolol XL (24 HR) Succ 25 MG TAB.ER.24H PO SCH (12:21)
--- NOTE | 2017-09-21 12:28 | Pulmonology Progress Note ---
Date of Encounter: 09/21/17 Time of Encounter: 09:30 Assessment and Plan (1) Acute respiratory failure with hypoxia Current Visit: Yes Status: Acute Secondary to systolic heart failure and Post operative atelectasis /pneumonia (2) Acute systolic heart failure Current Visit: Yes Status: Acute To continue diuresis , Kidney function is stable . To continue fluid restriction and salt restriction. (3) Pneumonia Current Visit: Yes Status: Acute The Right lower lobe opacity is more concerning of post operative atelectasis rather than pneumonia. To continue antibiotics as per primary team . Patient is doing incentive spirometry and Flutter valve,AccuPAP . RLL consolidative opacity is lot improved with Accupap and IS , Flutter valve as evidenced by yesterday CT Chest Qualifiers: Pneumonia type: due to unspecified organism Laterality: right Lung location: lower lobe of lung Qualified Code(s): J18.1 - Lobar pneumonia, unspecified organism (4) Pleural effusion Current Visit: Yes Status: Acute Repeat CT chest showed Mild Pleural effusion most likely transduative there is not enough fluid to tap. (5) Sleep-disordered breathing Current Visit: Yes Status: Chronic Patient will need outpatient PSG scheduled outpatient follow up in 6 weeks after discharge . Subjective Principal diagnosis: CHF, s/p lap tabitha Interval history: Patient is sitting in chair he is breathing is lot better , after flutter valve he coughs a lot but not much sputum production denies any abdominal pain , denies any fever or chills . Due to leukocytosis concern for gallbladder fossa abscess patient is getting CT abdomen and pelvis which showed some increased collection in the fossa had a drainage put by IR . Objective PUL Vital signs: Last Vital Signs Temp 97.5 F L 09/21/17 12:12 Pulse 84 09/21/17 12:12 Resp 16 09/21/17 12:12 BP 105/67 09/21/17 12:12 Pulse Ox 91 09/21/17 12:15 Auscultation: right: diminished breath sounds Results - Laboratory Findings CBC and BMP: 09/21/17 05:49 09/21/17 05:49 PT/INR, D-dimer PT 15.9 Seconds (9.4-12.1) H 09/21/17 05:49 Abnormal lab findings: Abnormal lab results WBC 14.6 K/mcL (4.3-11.1) H 09/21/17 05:49 Immature Gran % 11.7 % (0-4) H 09/19/17 00:30 Neutrophils # 13.4 K/mcL (1.6-8.9) H 09/21/17 05:49 Nucleated RBCs/100 WBC 0.1 /100 WBC (0) H 09/20/17 04:21 Reactive Lymphocytes Present (Not Present) A 09/20/17 04:21 Toxic Granulation Present (Not Present) A 09/20/17 04:21 PT 15.9 Seconds (9.4-12.1) H 09/21/17 05:49 Glucose 118 mg/dL (70-105) H 09/21/17 05:49 POC Glucose 165 mg/dL (70-99) H 09/14/17 17:47 Calcium 8.1 mg/dL (8.6-10.3) L 09/21/17 05:49 Direct Bilirubin 0.4 mg/dL (0.0-0.2) H 09/21/17 05:49 AST 81 Units/L (13-39) H 09/21/17 05:49 ALT 95 Units/L (7-52) H 09/21/17 05:49 B-Natriuretic Peptide 641 pg/mL (Less than 100) H 09/20/17 04:21 Serum Total Protein 5.1 g/dL (6.4-8.9) L 09/21/17 05:49 Albumin 2.8 g/dL (3.5-5.7) L 09/21/17 05:49 Globulin 2.3 g/dL (2.4-3.5) L 09/21/17 05:49 Ur Leukocyte Esterase Trace (Negative) H 09/16/17 13:48 Urine Microscopic RBC 3-5 per hpf (0-3) H 09/16/17 13:48 Ur Squamous Epith Cells Moderate per lpf (None-Few) H 09/16/17 13:48 Urine Mucus Moderate (Few) H 09/12/17 04:11 Ur Culture Indicated? YES (NO) A 09/16/17 13:48 - Clinical Findings Intake & Output: Intake & Output 09/20/17 09/21/17 09/21/17 23:59 07:59 15:59 Intake Total 300 / 300 120 / 120 Output Total 1200 / 1200 650 / 650 Balance -900 / -900 -530 / -530 - VTE Documentation of Mechanical Device: Intermittent pneumatic compression device Consult Discharge Plan - Plan Referrals: Huy Reyes DO [Primary Care Provider] -
[2017-09-22] MEDS: Ipratropium/Albuterol Neb 3 ML IH SCH ×4 (03:57→16:09)
[2017-09-22] MEDS ORDERED: Acetaminophen 325 MG TABLET PO PRN (07:54)
[2017-09-22] MEDS: Furosemide 40 MG/4 ML VIAL IVP SCH (08:26)
[2017-09-22] MEDS: Aspirin 81 MG TAB.CHEW PO SCH (08:26)
[2017-09-22] MEDS: levoFLOXacin 750 MG TABLET PO SCH (08:27)
[2017-09-22] MEDS: Metoprolol XL (24 HR) Succ 25 MG TAB.ER.24H PO SCH (08:27)
[2017-09-22] MEDS: metroNIDAZOLE 500 MG TABLET PO SCH ×2 (08:27→15:57)
[2017-09-22 11:06] VITALS: BP 112/69
--- NOTE | 2017-09-22 13:32 | Discharge Summary ---
<Gillian Greco L - Last Filed: 09/22/17 14:10> Orders not resulted at time of discharge: Pending orders 09/20/17 14:31 Culture,Anaerobic [RM] Stat Culture,Wound [RM] Stat Fungal Culture [MYC] Stat Date of Encounter: 09/22/17 Time of Encounter: 13:00 - Discharge Diagnosis (1) Cholecystitis Priority: Primary Status: Acute (2) Pleural effusion Priority: Secondary Status: Acute (3) Elevated LFTs Priority: Secondary Status: Acute (4) Acute systolic heart failure Priority: Secondary Status: Acute (5) Acute urinary retention Priority: Secondary Status: Acute (6) Paraesophageal hiatal hernia Priority: Secondary Status: Acute (7) Abnormal CT of the abdomen Priority: Secondary Status: Acute General Surgery Exam Vital Signs - 24 hr 09/21/17 14:43 09/21/17 15:41 09/21/17 15:51 Temperature 97.6 F 97.9 F Pulse Rate 90 77 Respiratory Rate 16 16 Blood Pressure 91/60 91/58 O2 Sat by Pulse Oximetry 91 90 92 09/21/17 16:39 09/21/17 18:58 09/21/17 20:22 Temperature 98.1 F 99.0 F Pulse Rate 89 85 Respiratory Rate 16 16 17 Blood Pressure 99/64 94/59 O2 Sat by Pulse Oximetry 91 90 92 09/21/17 23:27 09/21/17 23:43 09/22/17 04:05 Temperature 98.9 F Pulse Rate 78 Respiratory Rate 18 16 17 Blood Pressure 129/76 O2 Sat by Pulse Oximetry 92 92 91 09/22/17 04:51 09/22/17 05:25 09/22/17 06:30 Temperature 98.9 F 97.8 F Pulse Rate 98 87 93 Respiratory Rate 16 20 Blood Pressure 128/79 117/71 O2 Sat by Pulse Oximetry 90 93 09/22/17 07:22 09/22/17 10:51 09/22/17 11:03 Temperature 98.3 F Pulse Rate 86 Respiratory Rate 16 18 Blood Pressure 112/69 O2 Sat by Pulse Oximetry 94 92 92 09/22/17 11:09 Temperature Pulse Rate Respiratory Rate 16 Blood Pressure O2 Sat by Pulse Oximetry 93 VITAL SIGNS: Reviewed. See [facility] GENERAL: In no apparent distress. HEENT: Normocephalic, atraumatic, pupils are equal and reactive, extraocular motions intact, oropharynx is pink and moist, there is no neck adenopathy or JVD noted. CHEST/RESPIRATORY: The thorax is free from signs of trauma. Lung sounds: decreased CARDIAC: Regular rate and rhythm. Normal S1 and S2, with murmurs; without gallops, or rubs. VASCULAR: + Edema. 2+ peripheral pulses. ABDOMEN: soft, expected postoperative tenderness, active bowel sounds INCISION: Surgical incision is clean, dry, and intact. There are no signs of cellulitis or infection noted. WOUNDS/DRAINS: drain sites are within normal limits; Wilson catheter remains in place MUSCULOSKELETAL: Good range of motion of all major joints. Extremities without clubbing, cyanosis or edema. NEUROLOGIC EXAM: Alert and oriented x 3. Speech normal. Follows commands. PSYCHIATRIC: Mood normal. SKIN: No rash or lesions. - Hospital Course Hospital course: Mr. Gonzalez is a 77 year old male who presented on 09/12/2017 with complaints of upper abdominal pain. He was admitted for acute cholecystitis with plans for a laparoscopic cholecystectomy. He was noted to have a news left bundle branch block and therefore cardiology was consult did for preoperative risk stratification. He completed a chemical stress test which noted scarring and EF of 35%. There was no evidence of acute ischemia. Echocardiogram noted and EF of 40 to 45%, mild pulmonary hypertension. He was taken to the operating room where he underwent a robotic cholecystectomy with ICG intraoperative choliangiogram and a 19 Kisw[place]ili Victorino drain placement in the liver bed. Of note his gallbladder had extensive necrosis. His hospital course was further complicated by new onset acute systolic heart failure, pleural effusions, and right lower lobe pneumonia. He has required continuous oxygen per nasal cannula. He was supported with IV antibiotics, appropriately diuresed, and eventually did require a 2nd abdominal drain placement on 09/21/2017 which noted 30 mL of dark brown material returned. Cultures are pending at the time of discharge. His hospital course was further complicated by acute urinary retention which did require the placement of a Wilson catheter. Urology was consult did and the recommended the patient be discharged with the catheter and follow-up on September 26. Pulmonary was consulted regarding the pleural effusions and right lower lobe pneumonia. They'd recommended continue diuresis and follow-up in approximately 6 weeks with their office. He is ambulating and voiding (per Wilson), vital signs are stable, he is afebrile , and his abdominal discomfort is controlled. He will be discharged to home with home oxygen, a Wilson catheter, continued by mouth antibiotics, and close follow-up. He will be scheduled in our office on September 26 after his urology appointment. His recommended to follow-up with cardiology and 1 to 2 weeks. - Time Spent with Patient Total time spent providing and/or coordinating discharge services: Greater than 30 minutes (Home O2 planning, d/c planning) - Discharge Medications Prescriptions: OxyCODONE/APAP 5/325 [Percocet 5/325 MG] 1 each PO Q6HR PRN 7 Days #28 tablet PRN Reason: Pain Aspirin 81 mg PO DAILY #90 tab.chew Atorvastatin [Lipitor] 40 mg PO HS #30 tablet Docusate [Colace] 100 mg PO BID PRN 15 Days #60 capsule PRN Reason: Constipation Furosemide [Lasix] 40 mg PO DAILY #30 tablet levoFLOXacin [Levaquin] 750 mg PO DAILY 14 Days #14 tablet Lisinopril [Zestril] 2.5 mg PO DAILY #30 tablet Metoprolol XL (24 HR) Succ [Toprol Xl] 50 mg PO DAILY #30 tab.er.24h metroNIDAZOLE [Flagyl] 500 mg PO TID 14 Days #42 tablet Potassium Chloride [Klor-Con 10] 10 meq PO DAILY #30 tablet.er Tamsulosin [Flomax] 0.4 mg PO DAILY 30 Days #30 capsule Home Medications: Omeprazole 20 mg PO BID 09/18/17 [History] Aspirin 81 mg PO DAILY #90 tab.chew 09/22/17 [Rx] Atorvastatin [Lipitor] 40 mg PO HS #30 tablet 09/22/17 [Rx] Docusate [Colace] 100 mg PO BID PRN 15 Days #60 capsule 09/22/17 [Rx] Furosemide [Lasix] 40 mg PO DAILY #30 tablet 09/22/17 [Rx] Lisinopril [Zestril] 2.5 mg PO DAILY #30 tablet 09/22/17 [Rx] Metoprolol XL (24 HR) Succ [Toprol Xl] 50 mg PO DAILY #30 tab.er.24h 09/22/17 [ Rx] OxyCODONE/APAP 5/325 [Percocet 5/325 MG] 1 each PO Q6HR PRN 7 Days #28 tablet [Rx] Potassium Chloride [Klor-Con 10] 10 meq PO DAILY #30 tablet.er 09/22/17 [Rx] Tamsulosin [Flomax] 0.4 mg PO DAILY 30 Days #30 capsule 09/22/17 [Rx] levoFLOXacin [Levaquin] 750 mg PO DAILY 14 Days #14 tablet 09/22/17 [Rx] metroNIDAZOLE [Flagyl] 500 mg PO TID 14 Days #42 tablet 09/22/17 [Rx] Allergies/Adverse Reactions: 3 Allergy/AdvReac Type Severity Reaction Status Date / Time No Known Allergies Allergy Verified 09/12/17 09:49 Date of admission: 09/14/17 07:49 Primary care physician: Huy Reyes, Consults: 09/15/17 10:56 Consult to Physical Therapy [CONS] Routine Comment: Evaluate, develop and implement POC Reason for Consult: Mobilization and DC planning Does patient have active BEDREST order?: No Is patient medically & hemodynamically stable?: Yes Patient assessed for mobility or mobilized this visit?: No 09/15/17 10:58 Consult to Respiratory Therapy [CONS] Routine Reason for Consult: Aggressive pulmonary toileting, duonebs, Sav O2 as tolerated Call Completed: No 09/19/17 14:02 Consult to Pulmonology [CONS] Routine Consulting Provider: [facility] Reason for Consult: Continued pleural effusions Time Notified: 14:02 Call Completed: Yes 09/19/17 15:56 Consult to Urology [CONS] Routine Consulting Provider: [facility] Reason for Consult: acute urinary retention, history of prostate CA and renal calculi Time Notified: 15:57 Call Completed: Yes 09/20/17 14:29 Consult to Interventional Radiology [CONS] Stat Consulting Provider: Radiology Interventional Cols Reason for Consult: fluid collection in gall bladder fossa Time Notified: 14:29 Call Completed: Yes Discharging clinician: Osmin Greco) Anticipated date of discharge: 09/22/17 Labs on day of discharge: Preliminary micro results at discharge 09/21/17 11:35 Wound Culture - Preliminary Abdomen No growth. - Impressions ITS Impressions Chest X-Ray 09/15/17 10:59 IMPRESSION: New small to moderate bilateral pleural effusions with adjacent atelectasis, right greater than left. D/ / Deyanira Allan MD / Deyanira Allan MD Interpreting Provider: Deyanira Allan MD Chest X-Ray 09/16/17 13:06 IMPRESSION: Increasing small to moderate left pleural effusion. Stable right pleural effusion. D/ / Deyanira Allan MD / Deyanira Allan MD Interpreting Provider: Deyanira Allan MD Chest CT 09/16/17 15:02 IMPRESSION: 1. Right small to moderate pleural effusion with extensive right lower lobe consolidation most indicative of pneumonia. 2. Moderate size hiatal hernia with some left lower lobe subsegmental atelectasis around the hernia. 3. Partially imaged presumed percutaneous drainage catheter approaching from the right side and terminating in a 4.5 cm heterogeneous collection with some gas pockets in the posterior right lobe of liver near the selvin hepatis. There is some surrounding inflammation changes. . Findings may represent abscess or hematoma. Better evaluation may be accomplished with contrast-enhanced CT abdomen. D/ / Tim Carr MD / Tim Carr MD Interpreting Provider: Tim Carr MD Chest X-Ray 09/19/17 11:10 IMPRESSION: Right pleural effusion with adjacent airspace disease. Left hilar hernia and probable retrocardiac airspace disease. D/ / Bereket Guallpa MD / Bereket Guallpa MD Interpreting Provider: Bereket Guallpa MD Abdomen/Pelvis CT 09/20/17 12:30 IMPRESSION: 1. Mildly increased size of an abscess in the gallbladder fossa, measuring 8.1 x 4.5 x 3.8 cm. A surgical drainage catheter tip lies within the abscess lumen. A trace amount of loculated complex fluid is also present about the right hepatic lobe, and appears to communicate with the gallbladder fossa abscess. 2. Right lower lobe consolidation is improved from prior exam, and may represent resolving pneumonia. A small right pleural effusion is stable. 3. Moderate to large hiatal hernia. D/ / 09/20/2017 13:35:16 Justin Riddle MD / derrick Interpreting Provider: Justin Riddle MD Chest CT 09/20/17 12:30 IMPRESSION: 1. Mildly increased size of an abscess in the gallbladder fossa, measuring 8.1 x 4.5 x 3.8 cm. A surgical drainage catheter tip lies within the abscess lumen. A trace amount of loculated complex fluid is also present about the right hepatic lobe, and appears to communicate with the gallbladder fossa abscess. 2. Right lower lobe consolidation is improved from prior exam, and may represent resolving pneumonia. A small right pleural effusion is stable. 3. Moderate to large hiatal hernia. D/ / 09/20/2017 13:35:16 Justin Riddle MD / derrick Interpreting Provider: Justin Riddle MD Liver Abscess Drainage CT 09/21/17 00:00 IMPRESSION: CT-guided placement of a 10 Kiswahili abscess drain within an air-fluid collection in the gallbladder fossa. No immediate complications. D/ / 09/21/2017 13:53:28 Juan Ramirez MD / derrick Interpreting Provider: Juan Ramirez MD - Patient Status Disposition: Home, Self-Care Condition: Good Functional capacity at discharge: independent ambulation Overall status at discharge: patient is progressing back to baseline - Discharge Instructions Instructions: Heart Failure (GEN), Fluid Restriction, Seismograph Shooter (GEN) Follow Up With: [facility] [Provider Group] (1-2 weeks Office will call with appointment.) [facility] [Provider Group] - 10/28/17 1:00 pm (6 weeks Jakob Contreras) [facility] [Provider Group] - 09/26/17 8:00 am (Dr. Staples September 26, 2017 8 AM) Osmin Radford MD [Non-Partnered Physician] - 09/26/17 10:00 am Huy Reyes, [Primary Care Provider] - Additional Instructions: General Surgical Discharge Instructions 1. No pushing, pulling, or lifting greater than 15 lbs for 2-4 weeks (depending upon procedure). 2. You may shower beginning today, but no tub baths, soaking, or swimming for 2 weeks. 3. You may resume driving when you are off narcotics and are safe to react in a car. 4. Take ibuprofen every 8 hours for discomfort. If this does not relieve discomfort, you may take the as needed Percocet. Take narcotics as directed. Do not take more narcotics then directed and do not share your narcotics with any other person. Do not drink alcohol while on narcotics. 5. Take stool softeners (Colace) or a water based laxative (Miralax) while taking narcotics. You may hold for loose stools. 6. Report any fevers greater than 100.5F, increase abdominal discomfort, drainage that looks like pus, increased redness or pain at the surgical site, or any vomiting. 7. Report any pain in the calves, shortness of breath, or rapid heartbeat. 8. Follow-up in the office as directed. 9. Do not stop your antibiotics without talking to your provider. Do not drink alcohol while taking metronidazole. Doing so can cause violent vomiting and abdominal pain. 10. Drain care: remove dressing. Shower with antibacterial soap. Replace dressing with split gauze daily. Do not let the drain dangle from your body. Use a safety pin to secure them to clothing or hang them from a lanyard when you shower. Record your drainage output as directed by your nurse. Bring that with you to your follow-up appointment. Heart Failure Discharge Instructions 1. Follow the fluid restrictions as directed. Do not deviate from the fluid restrictions as doing so can cause you to retain extra fluid which can make it more difficult for your heart to pump. Where the compression stockings that were given to you in the hospital. 2. Weigh yourself every morning, in the same clothing (such as your underwear only), and record these findings on a document. Bring this with you to your cardiac follow-up. 3. Take Lasix daily. Take a potassium tablet with the lasix. If you gain 2 pounds in one day or 5 pounds in one week, take one extra Lasix (furosemide) in the evening. 4. Follow-up with cardiology as directed. You will need to have further evaluation of your heart. Urology Care 1. Continue the Flomax daily and the Wilson catheter. Follow-up with urology as directed. Pulmonary Care 1. Continue to use the incentive spirometer 10 times every hour that you were awake while at home. Your lungs will still need assistance to continue to re- inflate. Report any increase shortness of breath, chest pain, or cough. Please complete the ordered lab work in the morning of 09/26/2017, prior to your appointments - Diet and Activity Activity: increase activity as tolerated, wear oxygen at all times Diet: low salt diet (3G sodium), other (Fluid restrictions of 1500ML daily) <Osmin Radford - Last Filed: 09/22/17 18:58> Orders not resulted at time of discharge: Pending orders 09/20/17 14:31 Culture,Anaerobic [RM] Stat Culture,Wound [RM] Stat Fungal Culture [MYC] Stat Date of Encounter: 09/22/17 - Discharge Diagnosis (1) Cholecystitis Status: Acute General Surgery Exam Initial Vital Signs Temp Pulse Resp BP Pulse Ox 98.5 F 83 18 136/85 90 09/12/17 03:38 09/12/17 03:38 09/12/17 03:38 09/12/17 03:38 09/12/17 03:38 - Hospital Course Hospital course: Mr. Gonzalez is a 77 year old male - Time Spent with Patient Total time spent providing and/or coordinating discharge services: Date of admission: 09/14/17 07:49 Primary care physician: Huy Reyes, Consults: 09/15/17 10:56 Consult to Physical Therapy [CONS] Routine Comment: Evaluate, develop and implement POC Reason for Consult: Mobilization and DC planning Does patient have active BEDREST order?: No Is patient medically & hemodynamically stable?: Yes Patient assessed for mobility or mobilized this visit?: No 09/15/17 10:58 Consult to Respiratory Therapy [CONS] Routine Reason for Consult: Aggressive pulmonary toileting, duonebs, Sav O2 as tolerated Call Completed: No 09/19/17 14:02 Consult to Pulmonology [CONS] Routine Consulting Provider: [facility] Reason for Consult: Continued pleural effusions Time Notified: 14:02 Call Completed: Yes 09/19/17 15:56 Consult to Urology [CONS] Routine Consulting Provider: [facility] Reason for Consult: acute urinary retention, history of prostate CA and renal calculi Time Notified: 15:57 Call Completed: Yes 09/20/17 14:29 Consult to Interventional Radiology [CONS] Stat Consulting Provider: Radiology Interventional Cols Reason for Consult: fluid collection in gall bladder fossa Time Notified: 14:29 Call Completed: Yes Labs on day of discharge: Preliminary micro results at discharge 09/21/17 11:35 Wound Culture - Preliminary Abdomen No growth. - Impressions ITS Impressions Chest X-Ray 09/15/17 10:59 IMPRESSION: New small to moderate bilateral pleural effusions with adjacent atelectasis, right greater than left. D/ / Deyanira Allan MD / Deyanira Allan MD Interpreting Provider: Deyanira Allan MD Chest X-Ray 09/16/17 13:06 IMPRESSION: Increasing small to moderate left pleural effusion. Stable right pleural effusion. D/ / Deyanira Allan MD / Deyanira Allan MD Interpreting Provider: Deyanira Allan MD Chest CT 09/16/17 15:02 IMPRESSION: 1. Right small to moderate pleural effusion with extensive right lower lobe consolidation most indicative of pneumonia. 2. Moderate size hiatal hernia with some left lower lobe subsegmental atelectasis around the hernia. 3. Partially imaged presumed percutaneous drainage catheter approaching from the right side and terminating in a 4.5 cm heterogeneous collection with some gas pockets in the posterior right lobe of liver near the selvin hepatis. There is some surrounding inflammation changes. . Findings may represent abscess or hematoma. Better evaluation may be accomplished with contrast-enhanced CT abdomen. D/ / Tim Carr MD / Tim Carr MD Interpreting Provider: Tim Carr MD Chest X-Ray 09/19/17 11:10 IMPRESSION: Right pleural effusion with adjacent airspace disease. Left hilar hernia and probable retrocardiac airspace disease. D/ / Bereket Guallpa MD / Bereket Guallpa MD Interpreting Provider: Bereket Guallpa MD Abdomen/Pelvis CT 09/20/17 12:30 IMPRESSION: 1. Mildly increased size of an abscess in the gallbladder fossa, measuring 8.1 x 4.5 x 3.8 cm. A surgical drainage catheter tip lies within the abscess lumen. A trace amount of loculated complex fluid is also present about the right hepatic lobe, and appears to communicate with the gallbladder fossa abscess. 2. Right lower lobe consolidation is improved from prior exam, and may represent resolving pneumonia. A small right pleural effusion is stable. 3. Moderate to large hiatal hernia. D/ / 09/20/2017 13:35:16 Justin Riddle MD / derrick Interpreting Provider: Justin Riddle MD Chest CT 09/20/17 12:30 IMPRESSION: 1. Mildly increased size of an abscess in the gallbladder fossa, measuring 8.1 x 4.5 x 3.8 cm. A surgical drainage catheter tip lies within the abscess lumen. A trace amount of loculated complex fluid is also present about the right hepatic lobe, and appears to communicate with the gallbladder fossa abscess. 2. Right lower lobe consolidation is improved from prior exam, and may represent resolving pneumonia. A small right pleural effusion is stable. 3. Moderate to large hiatal hernia. D/ / 09/20/2017 13:35:16 Justin Riddle MD / derrick Interpreting Provider: Justin Riddle MD Liver Abscess Drainage CT 09/21/17 00:00 IMPRESSION: CT-guided placement of a 10 Kiswahili abscess drain within an air-fluid collection in the gallbladder fossa. No immediate complications. D/ / 09/21/2017 13:53:28 Juan Ramirez MD / derrick Interpreting Provider: Juan Ramirez MD - Attending Attestation I have personally seen and examined the patient. I have reviewed pertinent labs , imaging, progress notes, including this one. I agree with the above assessment and plan.
== END 2017-09-22 16:44 | disposition home or self-care (01) | DRG 417 ==
LOC: 3ANU 03:15 → EMEROO 03:15 → 3ANU 06:05
PROVIDERS: ADMIT Surgery; ATTEND Surgery
PROC: IRDRAIN (2017-09-21 12:00)

== ENCOUNTER 2017-10-18 16:29 | Observation (INO) ==
--- NOTE | 2017-10-18 16:54 | Emergency Department Note ---
Disposition Clinical Impression: Elevated troponin Stroke Qualifiers: CVA mechanism: unspecified Qualified Code(s): I63.9 - Cerebral infarction, unspecified Disposition: Still a Patient Condition: Fair Referrals: Huy Reyes DO [Primary Care Provider] - Forms: ED Satisfaction Letter Time of Disposition: 18:59 General Adult HPI - General Chief complaint: ED Neuro Symptoms/Deficit Stated complaint: "lethargic", near syncope Time Seen by Provider: 10/18/17 16:49 Source: patient, family Mode of arrival: ambulatory Limitations: no limitations, altered mental status Nursing Notes Reviewed: Yes Vital Signs Reviewed: Yes - History of Present Illness HPI Narrative: Patient is a 77-year-old male that presents emergency Department with strokelike symptoms. states that they were traveling in the vehicle today and he fell asleep around 3:30 PM and she woke him up at 3:45 PM and he had slurred speech and did not seem to be acting appropriately. There is reported that he has had difficulty walking while he was here in the emergency department. Patient states that he is not having any pain at this time. Denies any previous history of strokes. - Related Data Home Medications Medication Instructions Recorded Confirmed Aspirin [Lo-Dose Aspirin EC] 81 mg PO DAILY 10/18/17 10/18/17 Omeprazole [PriLOSEC] 20 mg PO BIDAC 10/18/17 10/18/17 Allergies Allergy/AdvReac Type Severity Reaction Status Date / Time No Known Allergies Allergy Verified 10/18/17 16:39 All systems ED: reviewed and negative except as stated. Eyes: Reports: vision change (Blurry vision) Neurological: Reports: weakness, other (Slurred speech) Past Medical History - Past Medical History Medical history: Reports: hyperlipidemia, hypertension, kidney stones Surgical history: Reports: non-contributory, cataract Psychiatric history: Reports: no psych history - Social History Smoking Status: Never smoker Smokeless Tobacco Status: No Alcohol use: Reports: none Drug use: Reports: none Physical Exam - General Limitations: altered mental status General appearance: alert, in no apparent distress - Head Head exam: atraumatic, normocephalic - Eye Eye exam: Present: normal appearance, EOMI - Neck Neck exam: Present: normal inspection, full ROM, trachea midline - Respiratory Respiratory exam: Present: normal lung sounds bilaterally. Absent: respiratory distress, wheezes - Cardiovascular Cardiovascular exam: Present: regular rate, normal rhythm, normal heart sounds, +S1, +S2 - Abdominal Exam Abdominal exam: Present: soft, Non-Tender, normal bowel sounds - Neurological Exam Neurological exam: Present: alert. Absent: oriented X3 - Expanded Neurological Exam Patient oriented to: Present: person, place. Absent: time Cranial nerves: EOM function (II, III, IV, ): Normal, facial sensation (V): Normal, facial palsy (VII): Normal, gag reflex (IX): Normal, spinal accessory function (XI): Normal, tongue deviation (XII): Normal Cerebellar function: finger to nose: Normal Motor strength - LUE: 5/5 Motor strength - RUE: 5/5 Motor strength - LLE: 5/5 Motor strength - RLE: 5/5 Upper motor neuron exam: pronator drift: Absent bilaterally Sensory exam upper extremity: light touch: Abnormal Left Sensory exam lower extremity: light touch: Normal Coma Scale Eye Opening: Spontaneous Coma Scale Motor Response: Obeys Commands Coma Scale Verbal Response: Confused Coma Scale Total: 14 - Psychiatric Psychiatric exam: Present: normal affect, normal mood - Skin Skin exam: Present: warm, dry, intact Course Vital Signs Pulse Rate 95 10/18/17 16:37 Respiratory Rate 20 10/18/17 16:37 Blood Pressure 148/103 10/18/17 16:37 O2 Sat by Pulse Oximetry 92 10/18/17 16:37 Temperature 97.5 F L 10/18/17 17:45 Pulse Rate 91 10/18/17 18:30 Respiratory Rate 20 10/18/17 18:30 Blood Pressure 148/109 10/18/17 18:30 O2 Sat by Pulse Oximetry 93 10/18/17 17:45 Oxygen Delivery Oxygen Delivery Nasal Cannula Medical Decision Making - MDM Narrative Medical decision making narrative: Due to the patient presented to the emergency department with strokelike symptoms we will obtain laboratory testing and a CT scan of the head and an EKG. [facility] radiology called at 1706 and notified that the head CT was negative. The [facility] stroke neurologist was available by tell a stroke and evaluated the patient at bedside. Majority of the patient's symptoms had resolved but was still having some confusion and slurred speech. There was a lengthy discussion with the family about the patient's symptoms and whether or not the patient would want to have TPA given. The risks and benefits were discussed at length with the patient and they were uncomfortable with deciding whether or not to give the TPA and ultimately decided against it. I felt that this is a very reasonable decision due the patient having minimal deficits at this time. The stroke neurologist Dr. Sun is in agreement with this as well. He recommended that the patient have CTAs of the head and neck obtained. This will be done here in the emergency department prior to any disposition of the patient. Ultimately the patient will need to be admitted to the hospital for further evaluation and management of his neurologic symptoms. The patient did have an elevated troponin of 3.07. The patient has no ischemic changes on EKG and is not actively having any chest pain at this time. Due to the patient having significantly elevated troponin above his baseline the patient will be started on low-dose ACS heparin here in the emergency department. The CTA of the head and neck are still pending upon signout. The patient will need to be signed out to the night team of Dr. Thomas and Dr. Osman due to shift change. - Medical Records Medical records reviewed: Yes I reviewed the patient's medical records. - Lab Data Lab results reviewed: Yes I reviewed the patient's lab results. Result diagrams: 10/18/17 16:38 10/18/17 16:38 Lab Results 10/18/17 10/18/17 10/18/17 Range/Units 16:35 16:38 16:38 WBC 7.9 (4.3-11.1) K/mcL RBC 4.74 (4.19-5.50) M/mcL Hgb 14.6 (12.9-16.9) g/dL Hct 44.6 (37.5-50.1) % MCV 94.1 (83.0-100.0) fL MCH 30.8 (28.0-33.3) pg MCHC 32.7 (31.6-35.5) g/dL RDW 15.6 H (11.5-14.5) % Plt Count 176 (140-400) K/mcL MPV 11.0 (9.4-12.4) fL Immature Gran % 0.4 (0-4) % Seg Neutrophils % 58.8 % Lymphocytes % 31.8 % Monocytes % 6.9 % Eosinophils % 1.8 % Basophils % 0.3 % Neutrophils # 4.7 (1.6-8.9) K/mcL Lymphocytes # 2.5 (0.6-4.6) K/mcL Monocytes # 0.6 (0.0-1.3) K/mcL Eosinophils # 0.1 (0.0-0.6) K/mcL Basophils # 0.0 (0.0-0.2) K/mcL PT 13.2 H (9.4-12.1) Seconds INR 1.2 APTT 28.5 (26.0-36.0) Seconds Sodium (136-145) mEq/L Potassium (3.5-5.1) mEq/L Chloride (98-107) mEq/L Carbon Dioxide (23-29) mEq/L BUN (8-23) mg/dL Creatinine (0.70-1.30) mg/dL Est GFR ( Amer) (> 60) Est GFR (Non-Af Amer) (> 60) BUN/Creatinine Ratio (6-26) Glucose (70-105) mg/dL POC Glucose 120 H (70-99) mg/dL Calculated Osmolality (280-300) Calcium (8.6-10.3) mg/dL Troponin I (< 0.04) ng/mL 10/18/17 Range/Units 16:38 WBC (4.3-11.1) K/mcL RBC (4.19-5.50) M/mcL Hgb (12.9-16.9) g/dL Hct (37.5-50.1) % MCV (83.0-100.0) fL MCH (28.0-33.3) pg MCHC (31.6-35.5) g/dL RDW (11.5-14.5) % Plt Count (140-400) K/mcL MPV (9.4-12.4) fL Immature Gran % (0-4) % Seg Neutrophils % % Lymphocytes % % Monocytes % % Eosinophils % % Basophils % % Neutrophils # (1.6-8.9) K/mcL Lymphocytes # (0.6-4.6) K/mcL Monocytes # (0.0-1.3) K/mcL Eosinophils # (0.0-0.6) K/mcL Basophils # (0.0-0.2) K/mcL PT (9.4-12.1) Seconds INR APTT (26.0-36.0) Seconds Sodium 138 (136-145) mEq/L Potassium 4.0 (3.5-5.1) mEq/L Chloride 109 H (98-107) mEq/L Carbon Dioxide 21 L (23-29) mEq/L BUN 10 (8-23) mg/dL Creatinine 0.88 (0.70-1.30) mg/dL Est GFR ( Amer) > 60 (> 60) Est GFR (Non-Af Amer) > 60 (> 60) BUN/Creatinine Ratio 11 (6-26) Glucose 143 H (70-105) mg/dL POC Glucose (70-99) mg/dL Calculated Osmolality 288 (280-300) Calcium 8.4 L (8.6-10.3) mg/dL Troponin I 3.07 H* (< 0.04) ng/mL - Radiology Data Radiology results reviewed: Yes I reviewed the patient's radiology results. - EKG Data EKG #1 EKG attestation: Yes I reviewed and interpreted this EKG. EKG results narrative: EKG showed a sinus rhythm with occasional PVCs. Ventricular rate of 75 bpm, CA interval 154, curette duration 132, QTC of 433. No evidence of STEMI on EKG. NIH Stroke Scale - Level of Consciousness LOC: Alert - LOC Questions LOC Questions: Answers both incorrectly - LOC Commands LOC Commands: Performs both correctly - Best Gaze Best Gaze: Normal - Visual Visual: No visual loss - Facial Palsy Facial Palsy: Normal - Motor Arms Motor Arm-Left: No drift for 10 seconds Motor Arm-Right: No drift for 10 seconds - Motor Legs Motor Leg-Left: No drift for 5 seconds Motor Leg-Right: No drift for 5 seconds - Limb Ataxia Limb Ataxia: Normal, No Ataxia - Sensory Sensory: Mild to moderate loss, "not as sharp" - Best Language Best Language: Mild to moderate aphasia. Examiner can identify picture from response - Dysarthria Dysarthria: Mild, slurs some words - Extinction and Inattention Extinction and Inattention: Normal - NIHSS Total Score NIHSS Total Score: 5
[2017-10-18 17:22] LABS: Basophils % 0.3 %; Eosinophils # 0.1 K/mcL (0.0-0.6); Eosinophils % 1.8 %; Hematocrit 44.6 % (37.5-50.1); Hemoglobin 14.6 g/dL (12.9-16.9); Immature Granulocytes % 0.4 % (0-4); Lymphocytes # 2.5 K/mcL (0.6-4.6); Lymphocytes % 31.8 %; Mean Corpuscular HGB Conc 32.7 g/dL (31.6-35.5); Mean Corpuscular Hemoglobin 30.8 pg (28.0-33.3); Mean Corpuscular Volume 94.1 fL (83.0-100.0); Monocytes # 0.6 K/mcL (0.0-1.3); Monocytes % 6.9 %; Neutrophils # 4.7 K/mcL (1.6-8.9); Platelet Count 176 K/mcL (140-400); Red Blood Count 4.74 M/mcL (4.19-5.50); Red Cell Distribution Width 15.6 % (11.5-14.5); Segmented Neutrophils % 58.8 %
[2017-10-18 17:27] LABS: INR 1.2; Prothrombin Time 13.2 Seconds (9.4-12.1); Troponin I 3.07 ng/mL (< 0.04)
[2017-10-18 17:29] LABS: Activated Partial Thrombo Time 28.5 Seconds (26.0-36.0)
[2017-10-18 17:31] LABS: BUN/Creatinine Ratio 11 (6-26); Blood Urea Nitrogen 10 mg/dL (8-23); Calcium 8.4 mg/dL (8.6-10.3); Carbon Dioxide 21 mEq/L (23-29); Chloride 109 mEq/L (98-107); Glucose 143 mg/dL (70-105); Osmolality,Calculated 288 (280-300); Sodium 138 mEq/L (136-145); eGFR For Non-African Americans > 60 (> 60)
[2017-10-18] MEDS ORDERED: Isovue-370 500 ML INFUS..BTL IV ONE (17:57)
[2017-10-18] MEDS ORDERED: *HR* Heparin 5,000 UNIT/ML VIAL IVP PRN ×2 (18:41)
[2017-10-18] MEDS ORDERED: *HR* Heparin 5,000 UNIT/ML VIAL IVP ONE (18:41)
[2017-10-18] MEDS ORDERED: Aspirin 81 MG TAB.CHEW PO STA (18:41)
[2017-10-18] MEDS ORDERED: Heparin 25,000 UNIT/500 ML D5W 25,000 UNIT/500 ML BAG IVC SCH (18:45)
--- NOTE | 2017-10-18 19:00 | Emergency Department Note ---
Disposition Clinical Impression: Elevated troponin, Slurred speech, TIA (transient ischemic attack) Stroke Qualifiers: CVA mechanism: unspecified Qualified Code(s): I63.9 - Cerebral infarction, unspecified Disposition: Admitted As Inpatient Condition: Fair General Adult HPI - General Chief complaint: ED Neuro Symptoms/Deficit Stated complaint: "lethargic", near syncope Time Seen by Provider: 10/18/17 16:49 Source: patient, family Mode of arrival: ambulatory Limitations: altered mental status Nursing Notes Reviewed: Yes Vital Signs Reviewed: Yes - History of Present Illness Pain Scale: 0 - Related Data Home Medications Medication Instructions Recorded Confirmed Aspirin [Lo-Dose Aspirin EC] 81 mg PO DAILY 10/18/17 10/18/17 Lisinopril 2.5 mg PO DAILY 10/18/17 10/18/17 Omeprazole [PriLOSEC] 20 mg PO BIDAC 10/18/17 10/18/17 Allergies Allergy/AdvReac Type Severity Reaction Status Date / Time No Known Allergies Allergy Verified 10/18/17 16:39 Eyes: Reports: vision change (Blurry vision) Neurological: Reports: weakness, other (Slurred speech) Past Medical History - Past Medical History Medical history: Reports: hyperlipidemia, hypertension, kidney stones Surgical history: Reports: non-contributory, cataract Psychiatric history: Reports: no psych history - Social History Smoking Status: Never smoker Smokeless Tobacco Status: No Alcohol use: Reports: none Drug use: Reports: none Physical Exam - General Limitations: altered mental status General appearance: alert, in no apparent distress Course Vital Signs Pulse Rate 95 10/18/17 16:37 Respiratory Rate 20 10/18/17 16:37 Blood Pressure 148/103 10/18/17 16:37 O2 Sat by Pulse Oximetry 92 10/18/17 16:37 Temperature 97.8 F 10/20/17 06:46 Pulse Rate 83 10/20/17 06:46 Respiratory Rate 18 10/20/17 06:46 Blood Pressure 139/90 10/20/17 06:46 O2 Sat by Pulse Oximetry 95 10/20/17 06:46 Oxygen Delivery Oxygen Delivery Nasal Cannula Medical Decision Making - Lab Data Result diagrams: 10/19/17 01:43 10/19/17 01:43 Lab Results 10/18/17 10/18/17 10/18/17 Range/Units 16:35 16:38 16:38 WBC 7.9 (4.3-11.1) K/mcL RBC 4.74 (4.19-5.50) M/mcL Hgb 14.6 (12.9-16.9) g/dL Hct 44.6 (37.5-50.1) % MCV 94.1 (83.0-100.0) fL MCH 30.8 (28.0-33.3) pg MCHC 32.7 (31.6-35.5) g/dL RDW 15.6 H (11.5-14.5) % Plt Count 176 (140-400) K/mcL MPV 11.0 (9.4-12.4) fL Immature Gran % 0.4 (0-4) % Seg Neutrophils % 58.8 % Lymphocytes % 31.8 % Monocytes % 6.9 % Eosinophils % 1.8 % Basophils % 0.3 % Neutrophils # 4.7 (1.6-8.9) K/mcL Lymphocytes # 2.5 (0.6-4.6) K/mcL Monocytes # 0.6 (0.0-1.3) K/mcL Eosinophils # 0.1 (0.0-0.6) K/mcL Basophils # 0.0 (0.0-0.2) K/mcL PT 13.2 H (9.4-12.1) Seconds INR 1.2 APTT 28.5 (26.0-36.0) Seconds Heparin Anti-Xa, Unfract (0.30-0.70) IU/mL Sodium (136-145) mEq/L Potassium (3.5-5.1) mEq/L Chloride (98-107) mEq/L Carbon Dioxide (23-29) mEq/L BUN (8-23) mg/dL Creatinine (0.70-1.30) mg/dL Est GFR ( Amer) (> 60) Est GFR (Non-Af Amer) (> 60) BUN/Creatinine Ratio (6-26) Glucose (70-105) mg/dL POC Glucose 120 H (70-99) mg/dL Calculated Osmolality (280-300) Calcium (8.6-10.3) mg/dL Troponin I (< 0.04) ng/mL 10/18/17 10/18/17 Range/Units 16:38 19:23 WBC (4.3-11.1) K/mcL RBC (4.19-5.50) M/mcL Hgb (12.9-16.9) g/dL Hct (37.5-50.1) % MCV (83.0-100.0) fL MCH (28.0-33.3) pg MCHC (31.6-35.5) g/dL RDW (11.5-14.5) % Plt Count (140-400) K/mcL MPV (9.4-12.4) fL Immature Gran % (0-4) % Seg Neutrophils % % Lymphocytes % % Monocytes % % Eosinophils % % Basophils % % Neutrophils # (1.6-8.9) K/mcL Lymphocytes # (0.6-4.6) K/mcL Monocytes # (0.0-1.3) K/mcL Eosinophils # (0.0-0.6) K/mcL Basophils # (0.0-0.2) K/mcL PT 13.7 H (9.4-12.1) Seconds INR 1.2 APTT (26.0-36.0) Seconds Heparin Anti-Xa, Unfract 0.01 L (0.30-0.70) IU/mL Sodium 138 (136-145) mEq/L Potassium 4.0 (3.5-5.1) mEq/L Chloride 109 H (98-107) mEq/L Carbon Dioxide 21 L (23-29) mEq/L BUN 10 (8-23) mg/dL Creatinine 0.88 (0.70-1.30) mg/dL Est GFR ( Amer) > 60 (> 60) Est GFR (Non-Af Amer) > 60 (> 60) BUN/Creatinine Ratio 11 (6-26) Glucose 143 H (70-105) mg/dL POC Glucose (70-99) mg/dL Calculated Osmolality 288 (280-300) Calcium 8.4 L (8.6-10.3) mg/dL Troponin I 3.07 H* (< 0.04) ng/mL Attestation Statement - Attestation Attestation: I, Peter Rodriguez, examined this patient and my medical decision-making was reviewed with the AERODYNAMICIST/PA/Advanced Practice Nurse/Resident Physician. I agree with the documented findings, disposition and treatment plan as described except to the extent set forth below. 77-year-old male presents emergency Department by EMS for concerns of altered mental status and possible stroke. Family states deficit is confusion and slurred speech. Stroke alert was initiated after our initial evaluation. CT of the head did not show evidence of acute fracture or internal hemorrhage. [facility] neurology evaluated the patient via tele-neurology. After long discussion with [facility] neurology, family and patient agreed not to use TPA. Patient's symptoms seemed to be waxing and waning in the emergency department. Patient had a significantly elevated troponin on laboratory evaluation. Initial EKG did not show evidence of STEMI. Patient was given aspirin for possible CVA as well as possible and STEMI. He will be admitted to the hospital for further care and evaluation.
--- NOTE | 2017-10-18 19:40 | Emergency Department Note ---
Disposition Clinical Impression: Elevated troponin, Slurred speech, TIA (transient ischemic attack) Stroke Qualifiers: CVA mechanism: unspecified Qualified Code(s): I63.9 - Cerebral infarction, unspecified Disposition: Admitted As Inpatient Condition: Fair Time of Disposition: 20:49 General Adult HPI - General Chief complaint: ED Neuro Symptoms/Deficit Stated complaint: "lethargic", near syncope Time Seen by Provider: 10/18/17 16:49 Source: patient, family Mode of arrival: ambulatory Limitations: altered mental status Nursing Notes Reviewed: Yes Vital Signs Reviewed: Yes - History of Present Illness HPI Narrative: Patient was signed out to me by daytime physicians Dr. Araya and Dr. Rodriguez pending CT angio and final disposition. Please see their note for further details. Pain Scale: 0 - Related Data Home Medications Medication Instructions Recorded Confirmed Aspirin [Lo-Dose Aspirin EC] 81 mg PO DAILY 10/18/17 10/18/17 Lisinopril 2.5 mg PO DAILY 10/18/17 10/18/17 Omeprazole [PriLOSEC] 20 mg PO BIDAC 10/18/17 10/18/17 Allergies Allergy/AdvReac Type Severity Reaction Status Date / Time No Known Allergies Allergy Verified 10/18/17 16:39 Eyes: Reports: vision change (Blurry vision) Neurological: Reports: weakness, other (Slurred speech) Past Medical History - Past Medical History Attestation: Yes The following information was validated with the patient. Source: patient Medical history: Reports: hyperlipidemia, hypertension, kidney stones Surgical history: Reports: non-contributory, cataract Psychiatric history: Reports: no psych history - Social History Smoking Status: Never smoker Smokeless Tobacco Status: No Alcohol use: Reports: none Drug use: Reports: none Physical Exam - General Limitations: altered mental status General appearance: alert, in no apparent distress - Neurological Exam Neurological exam: Present: alert - Expanded Neurological Exam Patient oriented to: Present: person, place. Absent: time (1993, August (correct is September)) Speech: Present: fluid speech Cranial nerves: EOM function (II, III, IV, ): Abnormal Right (history of retinal detachment and cataract, vision loss), facial sensation (V): Normal, facial palsy (VII): Normal, gag reflex (IX): Normal, spinal accessory function ( XI): Normal, tongue deviation (XII): Normal Cerebellar function: finger to nose: Abnormal Right (misses nose with right hand ), heel to alfonso: Normal Motor strength - LUE: 5/5 Motor strength - RUE: 5/5 Motor strength - LLE: 5/5 Motor strength - RLE: 5/5 Upper motor neuron exam: romelia neglect: Absent bilaterally, pronator drift: Absent bilaterally Sensory exam upper extremity: light touch: Normal Sensory exam lower extremity: light touch: Normal Coma Scale Eye Opening: Spontaneous Coma Scale Motor Response: Obeys Commands Coma Scale Verbal Response: Oriented Coma Scale Total: 15 Course Course Narrative: Patient was signed out to me by daytime physicians Dr. Araya and Dr. Rodriguez pending CT angio and final disposition. Please see their note for further details. Since Laureano is a 77-year-old male who presented to the emergency department with strokelike symptoms. The who is in the room and assist with the history states that their traveling in a car today when the patient fell asleep around 1530. At that time he was acting his normal self. When she woke them up at 1545 he has some slurred speech and appeared confused. When she drove him to the emergency department he had some weakness and difficulty walking to the emergency department. She reports this is all new. No prior history of stroke. He is supposed to be on aspirin but has been discontinued electively by patient without physician recommendation. 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 His initial NIH score was reportedly 5 and has improved. He was evaluated by [facility] neurosurgery where TPA was recommended but after shared decision making antithrombolytic deferred. Patient is pending a CTA neck and head. On my examination patient is awake alert and oriented to person and place. He believes the year is 1993 and the month is August. He believes his age is 61 which is incorrect. He does follow commands and has equal strength in all for extremities. His troponin is elevated 3.07. He denies any chest pain or shortness of breath. No prior history of cardiac ischemic disease. He denies any G.I. bleed symptoms. He has been started on heparin ACS and given aspirin. Patient likely will be admitted pending final imaging. Family and patient in agreement with this plan. - Consultations Consultation #1: Spoke with on-call hospitalist sawyer Hathaway to admit for TIA, improving slurred speech, elevated troponin. No further orders at this time Time: 21:07 Vital Signs Pulse Rate 95 10/18/17 16:37 Respiratory Rate 20 10/18/17 16:37 Blood Pressure 148/103 10/18/17 16:37 O2 Sat by Pulse Oximetry 92 10/18/17 16:37 Temperature 98.2 F 10/18/17 22:53 Pulse Rate 90 10/18/17 22:53 Respiratory Rate 18 10/18/17 22:53 Blood Pressure 133/93 10/18/17 22:53 O2 Sat by Pulse Oximetry 97 10/18/17 22:53 Oxygen Delivery Oxygen Delivery Nasal Cannula Medical Decision Making - MDM Narrative Medical decision making narrative: Patient was discussed with my attending physician who agrees with ED management and final disposition. They independently evaluated the patient. Please refer to their attestation to this encounter for additional information. This note was generated by [employer] voice recognition software and as a result grammatical or spelling errors may occur using this program. - Medical Records Medical records reviewed: Yes I reviewed the patient's medical records. - Lab Data Lab results reviewed: Yes I reviewed the patient's lab results. Result diagrams: 10/19/17 01:43 10/19/17 01:43 Lab Results 10/18/17 10/18/17 10/18/17 Range/Units 16:35 16:38 16:38 WBC 7.9 (4.3-11.1) K/mcL RBC 4.74 (4.19-5.50) M/mcL Hgb 14.6 (12.9-16.9) g/dL Hct 44.6 (37.5-50.1) % MCV 94.1 (83.0-100.0) fL MCH 30.8 (28.0-33.3) pg MCHC 32.7 (31.6-35.5) g/dL RDW 15.6 H (11.5-14.5) % Plt Count 176 (140-400) K/mcL MPV 11.0 (9.4-12.4) fL Immature Gran % 0.4 (0-4) % Seg Neutrophils % 58.8 % Lymphocytes % 31.8 % Monocytes % 6.9 % Eosinophils % 1.8 % Basophils % 0.3 % Neutrophils # 4.7 (1.6-8.9) K/mcL Lymphocytes # 2.5 (0.6-4.6) K/mcL Monocytes # 0.6 (0.0-1.3) K/mcL Eosinophils # 0.1 (0.0-0.6) K/mcL Basophils # 0.0 (0.0-0.2) K/mcL PT 13.2 H (9.4-12.1) Seconds INR 1.2 APTT 28.5 (26.0-36.0) Seconds Heparin Anti-Xa, Unfract (0.30-0.70) IU/mL Sodium (136-145) mEq/L Potassium (3.5-5.1) mEq/L Chloride (98-107) mEq/L Carbon Dioxide (23-29) mEq/L BUN (8-23) mg/dL Creatinine (0.70-1.30) mg/dL Est GFR ( Amer) (> 60) Est GFR (Non-Af Amer) (> 60) BUN/Creatinine Ratio (6-26) Glucose (70-105) mg/dL POC Glucose 120 H (70-99) mg/dL Calculated Osmolality (280-300) Calcium (8.6-10.3) mg/dL Troponin I (< 0.04) ng/mL 10/18/17 10/18/17 Range/Units 16:38 19:23 WBC (4.3-11.1) K/mcL RBC (4.19-5.50) M/mcL Hgb (12.9-16.9) g/dL Hct (37.5-50.1) % MCV (83.0-100.0) fL MCH (28.0-33.3) pg MCHC (31.6-35.5) g/dL RDW (11.5-14.5) % Plt Count (140-400) K/mcL MPV (9.4-12.4) fL Immature Gran % (0-4) % Seg Neutrophils % % Lymphocytes % % Monocytes % % Eosinophils % % Basophils % % Neutrophils # (1.6-8.9) K/mcL Lymphocytes # (0.6-4.6) K/mcL Monocytes # (0.0-1.3) K/mcL Eosinophils # (0.0-0.6) K/mcL Basophils # (0.0-0.2) K/mcL PT 13.7 H (9.4-12.1) Seconds INR 1.2 APTT (26.0-36.0) Seconds Heparin Anti-Xa, Unfract 0.01 L (0.30-0.70) IU/mL Sodium 138 (136-145) mEq/L Potassium 4.0 (3.5-5.1) mEq/L Chloride 109 H (98-107) mEq/L Carbon Dioxide 21 L (23-29) mEq/L BUN 10 (8-23) mg/dL Creatinine 0.88 (0.70-1.30) mg/dL Est GFR ( Amer) > 60 (> 60) Est GFR (Non-Af Amer) > 60 (> 60) BUN/Creatinine Ratio 11 (6-26) Glucose 143 H (70-105) mg/dL POC Glucose (70-99) mg/dL Calculated Osmolality 288 (280-300) Calcium 8.4 L (8.6-10.3) mg/dL Troponin I 3.07 H* (< 0.04) ng/mL - Radiology Data Radiology results reviewed: Yes I reviewed the patient's radiology results. Head CT 10/18/17 16:49 IMPRESSION: No acute intracranial abnormality. Findings were discussed with Dr. Araya on 10/18/2017 at approximately 5:05 p.m. D/ / 10/18/2017 17:10:00 Medina Torres MD / derrick Interpreting Provider: Medina Torres MD Head CTA 10/18/17 17:57 IMPRESSION: 1. Please correlate the appearance of the posterior circulation on the right side with patient's clinical symptomatology. The takeoff of the right ADVERTISING ANALYST is not visualized, although a right-sided posterior communicating artery may be present. Superior cerebellar artery on the right side also appears decreasing caliber. 2. Anterior circulation appears intact, with a small foci of atherosclerotic calcification in the cavernous segment of the internal carotid artery. 3. Carotid and vertebral vasculature in the neck appears within normal limits. 4. Bilateral pleural effusions and bibasilar atelectasis. Mild interlobular septal thickening. Mild fluid overload may be present. D/ / Edilberto Pavon / Edilberto Pavon Interpreting Provider: Edilberto Pavon Neck CTA 10/18/17 17:57 IMPRESSION: 1. Please correlate the appearance of the posterior circulation on the right side with patient's clinical symptomatology. The takeoff of the right ADVERTISING ANALYST is not visualized, although a right-sided posterior communicating artery may be present. Superior cerebellar artery on the right side also appears decreasing caliber. 2. Anterior circulation appears intact, with a small foci of atherosclerotic calcification in the cavernous segment of the internal carotid artery. 3. Carotid and vertebral vasculature in the neck appears within normal limits. 4. Bilateral pleural effusions and bibasilar atelectasis. Mild interlobular septal thickening. Mild fluid overload may be present. D/ / Edilberto Pavon / Edilberto Pavon Interpreting Provider: Edilberto Pavon Critical Care Time Critical Care Time: Yes Total Critical Care Time: 35 Attestation: Acute altered mental status S.B.A.R. - S.B.A.R. Situation: Demographics, MOA Background: Presenting Complaint, Relevant PMH, Meds, & Allergies Assessment: Vital Signs, Course and respsone to treatment, Exam Concerns, Patient/Family Expectation, Pertinant Lab Results, Outstanding Labs Recommendation: Barrier(s) to disposition, Recommendation based on pending studies, treatments, or consults S.B.A.R. Report Given to: Dr. Cornelio Noriega S.B.A.R. Repor Time: 21:08 Attestation Statement - Attestation Attestation: Dr. Osman note: Patient was seen in conjunction with resident Dr. Thomas. Please see his charting for complete documentation. I spent [id number] time with the patient and agree with patient's treatment and disposition; Pt is at baseline mental status on re evaluation; ct scan results noted; elevated troponin noted; no recent report of chest pain or shortness of breath or diaphoresis; is @ bediside to assist w/ history; pt does have some dementia @ baseline; pt was seen prior by attending Dr Rodriguez; admitted in stabilized and improved condition; NIH Stroke Scale - Level of Consciousness LOC: Alert - LOC Questions LOC Questions: Answers both incorrectly - LOC Commands LOC Commands: Performs both correctly - Best Gaze Best Gaze: Normal - Visual Visual: No visual loss - Facial Palsy Facial Palsy: Normal - Motor Arms Motor Arm-Left: No drift for 10 seconds Motor Arm-Right: No drift for 10 seconds - Motor Legs Motor Leg-Left: No drift for 5 seconds Motor Leg-Right: No drift for 5 seconds - Limb Ataxia Limb Ataxia: Absent of affected limb too weak to perform exam - Sensory Sensory: Normal - Best Language Best Language: No aphasia - Dysarthria Dysarthria: Normal - Extinction and Inattention Extinction and Inattention: Normal - NIHSS Total Score NIHSS Total Score: 2
[2017-10-18 19:49] LABS: Heparin anti-factor XA UFH 0.01 IU/mL (0.30-0.70)
[2017-10-18 19:50] LABS: INR 1.2; Prothrombin Time 13.7 Seconds (9.4-12.1)
[2017-10-19] MEDS ORDERED: Naloxone 0.4 MG/ML INJ IVP PRN (00:29)
--- NOTE | 2017-10-19 00:46 | Internal Med History&Physical ---
Date of Encounter: 10/19/17 Time of Encounter: 23:45 Internal Medicine - H&P: HPI Chief complaint: CVA Admitted From: Home Plans for Post Hospital Care: Home History of present illness: Mr. Gonzalez is a 77 year old male Patient's was out driving him around on errands when she noticed that he had fallen asleep and could not be easily woken up. When she did manage to wake him, he was slurring his words, and the patient noticed that he was having trouble pronouncing words. At that point they drove to the hospital for further evaluation. Upon arrival, he had difficulty getting out of the car, and felt weak. He denies chest pain, abdominal pain, nausea, vomiting, diarrhea, constipation and vision changes. He has never had anything like this before in the past. Of note, the morning of admission he was visiting with Dr. Bhatti of cardiology discussing his blood pressure medications. He states that he has not been on them for a while as he recently had his gall bladder removed about 1 month ago and hasn't been on them. Upon arrival to the ER a stroke alert was called and [facility] was consulted. TPA was recommended, however declined by the patient and as his symptoms had improved and he recently had surgery. CT head was done and showed no acute intracranial abnormality. [facility] recommended getting head and neck CTA for further evaluation. Patient was also found to have an elevated troponin level of 3.07, with no EKG changes or chest pain. He was started on a heparin drip by the ER. The only heart problems that the patient admits to is that he was kicked in the chest by a horse several years ago requiring a 2 day stay in the hospital. No intervention was needed for this event. He is to be admitted for further monitoring of troponins and CVA workup. Past Med Surg Social Fam HX - Past Medical History Medical history: cardiomyopathy, CHF, hyperlipidemia, hypertension, kidney stones Additional medical history: Left sided pneumonia with partial lung collapse. 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 Psychiatric history: no psych history - Past Surgical History Surgical History: cataract, cholecystectomy Additional surgical history: Prostate surgery - Social History Smoking Status: Former smoker Smokeless Tobacco Status: No Alcohol use: none Drug use: none Internal Medicine - H&P: Meds Aspirin [Lo-Dose Aspirin EC] 81 mg PO DAILY 10/18/17 [History] Lisinopril 2.5 mg PO DAILY 10/18/17 [History] Omeprazole [PriLOSEC] 20 mg PO BIDAC 10/18/17 [History] 3 Allergy/AdvReac Type Severity Reaction Status Date / Time No Known Allergies Allergy Verified 10/18/17 16:39 All Systems PM: A 10-system review of systems was performed and is negative for pertinent findings except as documented above in the HPI. - Constitutional Vitals: Temp Pulse Resp BP Pulse Ox 98.2 F 90 18 133/93 97 10/18/17 22:53 10/18/17 22:53 10/18/17 22:53 10/18/17 22:53 10/18/17 22:53 General appearance: Present: cooperative, A&O X 3, pleasant, no acute distress, answers questions appropriately - Head Head exam: Present: normal inspection - Eye Additional comments: History of detached retina in right eye with corneal discoloration and scarring. EOMI intact bilaterally. - Neck Neck exam general surgery: Present: full ROM. Absent: tenderness - Respiratory Respiratory exam: Present: CTAB. Absent: chest wall tenderness, decreased breath sounds, respiratory distress, wheezes - Cardiovascular Cardiovascular exam: Present: RRR. Absent: diastolic murmur, systolic murmur - GI/Abdominal GI/Abdominal exam: Present: normal bowel sounds, soft. Absent: tenderness - Extremities Exam Extremities exam: Present: full ROM, warm, radial pulses palpable and symmetrical. Absent: calf tenderness, pedal edema, tenderness - Neurological Exam Neurological exam: Present: alert, oriented X3, no focal deficits, strengths equal and symetr throughout, facial droop, speech deficit. Absent: motor sensory deficit Additional comments: Slight right sided facial drop on exam with mild slurring of words as patient spoke for long periods of time. Might be baseline as per . - Psychiatric Psychiatric exam: Present: normal mood. Absent: agitated, anxious Internal Med - H&P Results - Labs CBC & Chem 7: 10/19/17 01:43 10/19/17 01:43 Labs: Cardiac Enzymes 10/18/17 Range/Units 22:58 Troponin I 2.84 H* (< 0.04) ng/mL - Assessment and plan (1) Stroke Current Visit: Yes Status: Acute Assessment and plan: Patient presented with weakness, slurring of speech to the ER, and on my exam appears to have slight right sided facial droop. His strength was symmetrical bilaterally however. CT of head did not show any acute intra-cranial abnormalities, and CT angio of head and neck showed a not well visualized right CHURCH SECRETARY but a right sided posterior communicating artery may be present. The superior cerebellar artery on the right side also appeared decreased in caliber. Carotid and vertebral vasculature in the neck appeared within normal limits. As per the patient's , his symptoms had essentially resolved but with talking with him and during the exam, the symptoms seemed to slightly return. MRI in the morning Consider neurology consult Speech therapy in AM NPO over night. Qualifiers: CVA mechanism: unspecified Qualified Code(s): I63.9 - Cerebral infarction, unspecified (2) Slurred speech Current Visit: Yes Status: Acute Assessment and plan: On exam patient's speech became more slurred as the exam progressed. Treatment as above Speech therapy in AM NPO over night. (3) Facial droop Current Visit: Yes Status: Acute Assessment and plan: As seen on exam, though the patient's could not varify if that was his baseline. Patient also mildly slurring words on exam as well. Could be residual effects of a CVA. Treatment as above. (4) Elevated troponin Current Visit: Yes Status: Acute Assessment and plan: Troponins found to be elevated in ER at 3.07. No complaints of chest pain. EKG did not indicate STEMI. Continue to monitor with serial troponins Heparin drip started in the ER. - Time Spent With Patient Total time spent is greater than 50% in coordination of care (as documented) at patient's floor/unit and/or counseling patient: Greater than 35 minutes
[2017-10-19 01:56] LABS: Hematocrit 39.9 % (37.5-50.1); Hemoglobin 13.5 g/dL (12.9-16.9); Mean Corpuscular HGB Conc 33.8 g/dL (31.6-35.5); Mean Corpuscular Hemoglobin 31.5 pg (28.0-33.3); Mean Corpuscular Volume 93.2 fL (83.0-100.0); Mean Platelet Volume 10.6 fL (9.4-12.4); Platelet Count 146 K/mcL (140-400); Red Blood Count 4.28 M/mcL (4.19-5.50); Red Cell Distribution Width 15.5 % (11.5-14.5)
[2017-10-19 02:23] LABS: BUN/Creatinine Ratio 13 (6-26); Blood Urea Nitrogen 10 mg/dL (8-23); Calcium 8.1 mg/dL (8.6-10.3); Carbon Dioxide 24 mEq/L (23-29); Chloride 108 mEq/L (98-107); Glucose 134 mg/dL (70-105); Osmolality,Calculated 287 (280-300); Potassium 4.4 mEq/L (3.5-5.1); Sodium 138 mEq/L (136-145); eGFR For Non-African Americans > 60 (> 60)
--- NOTE | 2017-10-19 09:37 | Internal Med Progress Note ---
Date of Encounter: 10/19/17 Time of Encounter: 08:30 - Assessment and plan (1) Elevated troponin Current Visit: Yes Status: Acute Assessment and plan: elevated troponin CAD leading to ischemia of the cardiac wall. likely not full thickness as no STEMI was present upon review of EKG. evidence patient denied any pain during episode. troponins 10/18: 3.07 -> 2.84. 10/19: 2.44 EKG interpreted 09/18: frequent PVC's with frequent supraventricular premature complexes. L axis deviation. LBBB. no official EKG interpretation by cardiology performed as of 10/19. cardiac consultation report 10/19: stress test completed on 09/13/17 showed prior infarct, gated EF 36%. TTE 09/12/17: LVEF 40-45%. mildly dilated LV. segmental LV systolic dysfunction. mild LV diastolic dysfunction atypical septal motion consistent with BBB normal RV mild pulm HTN no significant valve dysfunction treatment ASA 324 mg given 20:07 10/18 and 81 mg active. atorvastatin heparin drip started 18:41 10/18 O2 via nasal cannula 2lpm nitrate not given lisinopril active beta moises not started consider metoprolol. continue monitoring troponins. MRI brain results pending. cardiology consulted. (2) Stroke Current Visit: Yes Status: Acute Assessment and plan: CVA etiology thrombus secondary to atherosclerosis. echo rules out embolism from lower body. consider paroxysmal atrial fibrillation. consider pooling of blood due to segmental LV systolic dysfunction. evidence signs and symptoms as outlined in subjective portion of note. CT head ordered 16:49 - no acute intracranial abnormality CTA head and neck ordered 17:57- takeoff of R BUILD AND RELEASE MANAGER not visualized decreased caliber of superior cerebellar artery on the R intact anterior circulation small foci of atherosclerotic calcification in the ICA carotid and vertebral vasculature WNL b/l pleural effusions and bibasilar atelectasis. mild interlobular septal thickening. possible mild fluid overload. treatment ASA 81 mg active. was not taking regularly during time of event. MRI results pending. Echo ordered and pending. neurology consulted. Qualifiers: CVA mechanism: unspecified Qualified Code(s): I63.9 - Cerebral infarction, unspecified (3) Heart failure with preserved ejection fraction Current Visit: Yes Status: Acute Assessment and plan: Heart failure with preserved EF etiology chronic HTN. will plan to classify symptoms at next visit to determine NYHA class and stage. evidence TTE 09/12/17: LVEF 40-45%. mildly dilated LV. segmental LV systolic dysfunction. mild LV diastolic dysfunction atypical septal motion consistent with BBB normal RV mild pulm HTN no significant valve dysfunction patient and patient's report no concerning symptoms since being given this diagnosis. exam: b/l pedal edema non-pitting. I/O: 224/400 B-176 treatment patient denies prior treatment. consider metoprolol, diuretics. cardiology consulted. - Time Spent With Patient Total time spent is greater than 50% in coordination of care (as documented) at patient's floor/unit and/or counseling patient: - Subjective Interval history: Patient account of 10/18 events: Mr. Gonzalez is a 77 Yo M who presented to the ED at 16:29 on 10/18 after experiencing intermittent slurred speech yesterday while riding as a passenger in his car around 3:45. His was the power screwdriver operator and noticed this speech as well after she had to "wake him up" in the passengers seat. The patient denies loss of conciousness but does remember feeling very sleepy in the car. His denies noticing any twitching of his muscles. When getting out of the car he noticed weakness of b/l lower Ext. He denies doing anything out of the usual earlier that day. no prior. no pain associated with the episode. admits fall in his barn 2-3 weeks ago after which he landed on his hand and side. Denies significant injuries from this fall. admits nausea no vomiting, tingling in b/l 5th digit the day prior, intermittent blurry vision, very mild headache. Denies fever, infection, numbness, bone/connective tissue genetic disorders Denies confusion but the states that he was talking about things that weren 't actually there, and pointed to his finger as opposed to wrist to indicate a timewatch when she asked him what the time was. She thinks he was confused during this time. The patient was not taking ASA regularly at home. PMH: confirmed cholecystitis s/p removal, paraesophageal hiatal hernia, cardiomyopathy, acute systolic heart failure, prostate cancer s/p cryoablation, b/l nephrolithiasis, respiratory failure. PSH: cholecystectomy. cryoablation of prostate. double hernia repair. retinal detachment repair b/l. Meds: omeprazole was the only thing the patient was taking consistently at home prior to the event. Allergies: NKA SH: occasional tobacco use in his 20's. not every day. enjoyed cigars for several years. no etoh or recreational drugs. FH: not assessed EMR information regarding 10/18: troponin at 16:38: 3.07 CT head ordered 16:49 - no acute intracranial abnormality CTA head and neck ordered 17:57- takeoff of R BUILD AND RELEASE MANAGER not visualized decreased caliber of superior cerebellar artery on the R intact anterior circulation small foci of atherosclerotic calcification in the ICA carotid and vertebral vasculature WNL b/l pleural effusions and bibasilar atelectasis. mild interlobular septal thickening. possible mild fluid overload. 10/19: The patient admits continued weakness of lower Ext. as well as intermittent slurred speech. Nausea has resolved. Denies any new headache or other new symptoms. MRI ordered - results pending Echo ordered - results pending see management details in A/P portion of note - Constitutional Vitals: Temp Pulse Resp BP Pulse Ox 97.7 F 87 17 128/92 97 10/19/17 06:48 10/19/17 06:48 10/19/17 06:48 10/19/17 06:48 10/19/17 06:48 General appearance: Present: cooperative, pleasant, no acute distress, answers questions appropriately Exam: PE general: middle aged m in no acute distress. alert and oriented to person, place , and stated October 22 as opposed to October 19. HEENT: R and L pupil nonreactive to light. obvious loss of R eye with sclerosis replacing the pupil. facial asymmetry that states is normal appearance. heart: irregular rythym. no murmurs heard. no JVD. lungs: CTA throughout. slightly distant lung sounds. vascular: no carotid bruits. no abd bruits. radial and dorsalis pedis 2+. abd: non-distended. several small healing lesions throuhgout. neuro: CN I- not assessed II - pupils nonreactive to light III, IV, - eomi on the L. difficulty with adduction of R eye. VIII - hearing not intact in the R ear all other cranial nerves intact strength: 5/5 upper and lower Ext. sensation: intact upper and lower Ext. reflexes: 2/4 brachioradialis and patellar cerebellar: finger to nose test equal bilaterally. more difficulty with heel to alfonso test on the L. gait: extreme weakness and unsteadiness. required two BUILD AND RELEASE MANAGER's assistance during tests. difficulty with heel walk, heel/toe walk. absent toe walking. MSK: non pitting b/l pedal edema. Internal Medicine: Result - Labs CBC & Chem 7: 10/19/17 01:43 10/19/17 01:43 Labs: Short CBC 10/19/17 Range/Units 01:43 WBC 6.3 (4.3-11.1) K/mcL Hgb 13.5 (12.9-16.9) g/dL Hct 39.9 (37.5-50.1) % Plt Count 146 (140-400) K/mcL BMP 10/19/17 01:43 Sodium 138 Potassium 4.4 Chloride 108 H Carbon Dioxide 24 BUN 10 Creatinine 0.76 Glucose 134 H Calcium 8.1 L Cardiac Enzymes 10/18/17 10/19/17 Range/Units 22:58 01:43 Troponin I 2.84 H* 2.44 H* (< 0.04) ng/mL - ABG Interpretation ABG results: PT/INR, D-dimer PT 13.7 Seconds (9.4-12.1) H 10/18/17 19:23 Consult Discharge Plan - Plan Referrals: Huy Reyes DO [Primary Care Provider] -
--- NOTE | 2017-10-19 11:53 | Neurology - Consult Note ---
Date of Encounter: 10/19/17 Time of Encounter: 11:38 Assessment and Plan (1) TIA (transient ischemic attack) Current Visit: Yes Status: Acute Acute presentation of symptoms including altered mental status, slurred speech, facial droop, and lower extremity weakness with rapid recovery my represent TIA. At this time patient subjectively feels week in lower extremities however is without focal deficit and has full strength to my exam. Recommend stroke work up for this patient with MRI, Echocardiogram, and carotid doppler still to be completed. Continue Aspirin and statin therapies at this time. Will follow and await MRI results. Patient should work with PT to try and get back to baseline ambulatory status. History of Present Illness HPI: Mr. Gonzalez is a 77 year old male with history of hypertension. History was obtained from the chart and patient and family at bedside. No history of TIA or stroke. Patient lives at home with his , normally ambulates well around home without assistance. Family endorses on and off confusion over the last 5 months. He was not faithful in taking medications and was not on aspirin regularly. Yesterday afternoon patient's noted lethargy, confusion, slurred speech, and difficulty ambulating due to apparent bilateral lower extremity weakness. Patient is blind in right eye, believes the patient's left eye movements were abnormal during the event. She states that the symptoms persisted at peak for around 20-30 minutes and started to improve after that. CT of head was negative for acute process or hemorrhage. [facility] neurology recommended tPA administration, family and patient elected to decline due to improvement of patient deficits. Today patient states he is not feeling weak, numb, dizzy, no visual deficit. He feels like he will still need assistance to ambulate. Can perceive a "heavy" feeling tongue that requires more speech to talk. Family believe he is mildly slurred, with no facial asymmetry. CT-A imaging noted the right superior cerebellar artery from the right TURF KEEPER. MRI is pending at this time. Past Med Surg Social Fam HX - Past Medical History Medical history: hyperlipidemia, hypertension, kidney stones Additional medical history: Left sided pneumonia with partial lung collapse. 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 Psychiatric history: no psych history - Past Surgical History Surgical History: non-contributory, cataract Additional surgical history: Prostate surgery - Social History Smoking Status: Never smoker Smokeless Tobacco Status: No Alcohol use: none Drug use: none Medications and Allergies Aspirin [Lo-Dose Aspirin EC] 81 mg PO DAILY 10/18/17 [History] Lisinopril 2.5 mg PO DAILY 10/18/17 [History] Omeprazole [PriLOSEC] 20 mg PO BIDAC 10/18/17 [History] 3 Allergy/AdvReac Type Severity Reaction Status Date / Time No Known Allergies Allergy Verified 10/18/17 16:39 All Systems: The remainder of the systems were reviewed and are negative Physical Examination - Vital Signs Vital Signs: Initial Vital Signs Pulse Resp BP Pulse Ox 95 20 148/103 92 10/18/17 16:37 10/18/17 16:37 10/18/17 16:37 10/18/17 16:37 - Neurologic Sensorimotor examination: intact Detailed motor examination: full strength in all major muscle groups Motor examination - right side: 5/5: deltoids, biceps, triceps, wrist flexion, wrist extension, filler machine operator, hip flexors, tibialis Anterior, quadriceps, toe extension (EHL), plantarflexion Motor examination - left side: 5/5: deltoids, biceps, triceps, wrist flexion, wrist extension, hip flexors, filler machine operator, quadriceps, tibialis Anterior, toe extension (EHL), plantarflexion Detailed sensory examination: intact, light touch, pain Reflex and gait examination: other (gait was not observed during this examination) Reflexes: Biceps: 2+, Triceps: 1+, Brachioradialis: 2+, Patella: 1+, Achilles: 1 + Mental Status Examination: awake, alert (oriented to person and place, not oriented to time. ), oriented to person, oriented to place, follows commands appropriately, answers questions appropriately, no agnosia, no aphasia (however , speech is mildly slurred. ), no aproxia Cranial nerve examination: PERRL, EOMI, visual marion intact (Patient is blind in right eye due to retinal detachment. ), sensory to face intact, mastication intact, no facial asymmetry is present, hearing is intact symmetrically, flexes SCM and trapezius muscles symmetrically with full power, tongue protrudes midline, no atrophy or facial fasiculations present Cranial Nerve Exam: pupil sluggish to react to light: Right (Chronic eye changes due to blindness) Cerebellar examination: no dysmetria, performs finger to nose and heel to alfonso symmetrically without ataxia, no difficulty with rapid alternating movements, dysarthria (mildly slurred speech, remains fluent. ) Results - Laboratory Findings CBC and BMP: 10/19/17 01:43 10/19/17 01:43 Abnormal lab findings: Abnormal lab results RDW 15.5 % (11.5-14.5) H 10/19/17 01:43 PT 13.7 Seconds (9.4-12.1) H 10/18/17 19:23 Chloride 108 mEq/L (98-107) H 10/19/17 01:43 Glucose 134 mg/dL (70-105) H 10/19/17 01:43 POC Glucose 120 mg/dL (70-99) H 10/18/17 16:35 Calcium 8.1 mg/dL (8.6-10.3) L 10/19/17 01:43 Troponin I 2.44 ng/mL (< 0.04) H* 10/19/17 01:43 Consult Discharge Plan - Plan Referrals: Huy Reyes DO [Primary Care Provider] -
[2017-10-19] MEDS: Aspirin 81 MG TAB.CHEW PO SCH (13:45)
--- NOTE | 2017-10-19 14:22 | Cardiology Consult Note ---
Date of Encounter: 10/19/17 Time of Encounter: 14:21 Assessment and Plan (1) Elevated troponin Current Visit: Yes Status: Acute Troponins 3.07, 2.84, 2.44 in setting of possible CVA--Brain MRI ordered/ pending. Demand ischemia vs NSTEMI. Primary team started heparin gtt. On ASA, Statin, ACEi. Was started on BB last admission. Pt's son states it made pt hypotensive and fatigued and it was stopped by PCP. Recent TTE 08/2017 showed a reduced EF of 40-45% with segmental dysfunction. Stress test at that time consistent with prior infarct. Negative for ischemia. Pt and have previously attributed abnormal cardiac testing to being kicked in the chest by a horse in the . Has never had LHC. Pt denies chest pain or worsening dyspnea. Recheck a limited TTE to re-evaluate EF. If MRI is positive for CVA, will not recommend invasive cardiac evaluation at this time, as it is not recommended to have LHC in setting of acute CVA. If CVA is ruled out, will need to discuss LHC during inpt stay. Further recs pending brain MRI. (2) Cardiomyopathy Current Visit: No Status: Acute TTE 08/2017 LVEF 40-45%. Mildly dilated left ventricle. Segmental left ventricular systolic dysfunction. Mild LVDD. No significant valvular dysfunction. Pharmacologic nuclear stress test: Gated EF 35%. Evidence of prior infarct, negative for ischemia. Suspect ICMP given above findings. Pt appears near euvolemic on exam. On ACEi. Reports did not tolerate BB due to fatigue and hypotension. Qualifiers: Qualified Code(s): I42.9 - Cardiomyopathy, unspecified Discussion w patient/family: The assessment and plan as outlined above was discussed with the patient and/or family members who expressed understanding and agreement. All questions were answered. Thank you for involving us in the care of your patient. Please call with any questions. I will discuss all the above with Dr. Melchor and make changes as necessary. History of Present Illness Consult date: 10/19/17 Consult reason: elevated troponin History of present illness: Mr. Gonzalez is a 77 year old male with PMH of HTN, recently diagnosed systolic CHF EF 40-45%, presumed CAD by prior infarct noted on stress, recent cholecystectomy that presented after patient's noticed pt had fallen asleep and could not be easily woken up. When she did manage to wake him, he was slurring his words, and the patient noticed that he was having trouble pronouncing words. Upon arrival, he had difficulty getting out of the car, and felt weak. Pt denies chest pain or dyspnea. Stroke alert was called and [facility] was consulted. TPA was recommended, however declined by the patient and as his symptoms had improved and he recently had surgery. CT head was done and showed no acute intracranial abnormality. [facility] recommended getting head and neck CTA for further evaluation. Patient was also found to have an elevated troponins 3.07, 2.84, 2.44. Cardiology consulted for further recs. When he was seen by cardiology last admission for pre-op and reduced EF, pt and attributed abnormal testing to pt being kicked in the chest by a horse in the , that warranted hospitalization. 08/2017 TTE EF 40-45% mildly dilated LA, segmental wall motion abnormality 08/2017 Stress test Gated EF 35%. Large sized, moderate to severe intensity, fixed defect throughout the inferior, inferolateral, and apex segments consistent with prior infarct. Perfusion imaging was negative for ischemia. Past Med Surg Social Fam HX - Past Medical History Medical history: cardiomyopathy, coronary artery disease, hyperlipidemia, hypertension, kidney stones Additional medical history: Left sided pneumonia with partial lung collapse. 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 Psychiatric history: no psych history - Past Surgical History Surgical History: non-contributory, cataract Additional surgical history: Prostate surgery - Social History Smoking Status: Never smoker Smokeless Tobacco Status: No Alcohol use: none Drug use: none Medications and Allergies Aspirin [Lo-Dose Aspirin EC] 81 mg PO DAILY 10/18/17 [History] Lisinopril 2.5 mg PO DAILY 10/18/17 [History] Omeprazole [PriLOSEC] 20 mg PO BIDAC 10/18/17 [History] 3 Allergy/AdvReac Type Severity Reaction Status Date / Time No Known Allergies Allergy Verified 10/18/17 16:39 All Systems Review: The remainder of the systems were reviewed and are negative - Constitutional Constitutional: weakness - Neurological Neurological: abnormal speech, focal weakness Physical Examination Vital Signs, Last 4 Hours Temp Pulse Resp BP Pulse Ox 10/19/17 11:50 98.2 F 80 17 123/80 96 Vital Signs Temp Pulse Resp BP Pulse Ox 10/19/17 11:50 98.2 F 80 17 123/80 96 10/19/17 06:48 97.7 F 87 17 128/92 97 10/19/17 04:26 98.1 F 86 17 130/87 93 10/18/17 22:53 98.2 F 90 18 133/93 97 10/18/17 22:02 94 20 124/79 97 10/18/17 21:57 88 20 132/101 10/18/17 21:00 90 18 139/98 10/18/17 20:00 92 127/92 10/18/17 19:10 95 20 146/104 10/18/17 18:30 91 20 148/109 10/18/17 18:15 94 20 147/103 10/18/17 18:00 93 20 133/80 10/18/17 17:45 97.5 F L 91 18 152/108 93 10/18/17 17:30 92 20 147/109 10/18/17 17:15 94 20 143/95 10/18/17 17:11 90 10/18/17 17:04 92 20 146/99 91 10/18/17 16:43 92 10/18/17 16:37 95 20 148/103 92 Intake and Output 10/18/17 10/19/17 10/19/17 23:59 07:59 15:59 Intake Total 0 / 0 136 / 136 / 88 Output Total 300 / 300 100 / 100 0 / 0 Balance -300 / -300 36 / 36 / 88 Intake: IV Fluids 136 / 136 88 / 88 Heparin 25,000 UNIT/500 ML D5W 136 / 136 88 / 88 25,000 unit In 500 ml @ 11.6 UNIT/KG/HR 19.994 mls/hr IVC . Q24H [facility] Rx#:[id number] Oral 0 / 0 0 / 0 Output: Urine 300 / 300 100 / 100 0 / 0 Other: Weight 84.3 kg 84.3 kg Blood Glucose* 120 Patient Weight 10/19/17 23:59 Weight 84.3 kg General: Conversant, No Apparent Distress HEENT: Atraumatic, Normocephaly, Mucus Membranes Moist Neck: Normal carotid pulses Cardiac: Reg Rate and Rhythm, Normal S1 and S2, No Murmur Lungs: Normal Breath Sounds, No Wheeze, Rales, Rhonchi Neuro: Other (confused at times) Abdomen: Soft, Non-Tender Skin: No rashes noted on visualized skin Musculoskeletal: No Chest Wall Tenderness Extremities: No Clubbing, No Cyanosis, No Edema, Normal Pulses Results 10/19/17 01:43 10/19/17 01:43 Lab Results 10/18/17 10/19/17 10/19/17 22:58 01:43 01:43 WBC 6.3 Hgb 13.5 Hct 39.9 Plt Count 146 Sodium Potassium Chloride Carbon Dioxide BUN Creatinine Glucose Calcium Troponin I 2.84 H* 2.44 H* 10/19/17 01:43 WBC Hgb Hct Plt Count Sodium 138 Potassium 4.4 Chloride 108 H Carbon Dioxide 24 BUN 10 Creatinine 0.76 Glucose 134 H Calcium 8.1 L Troponin I Short CBC 10/19/17 10/18/17 Range/Units 01:43 16:38 WBC 6.3 7.9 (4.3-11.1) K/mcL Hgb 13.5 14.6 (12.9-16.9) g/dL Hct 39.9 44.6 (37.5-50.1) % Plt Count 146 176 (140-400) K/mcL Neutrophils # 4.7 (1.6-8.9) K/mcL BMP 10/19/17 10/18/17 Range/Units 01:43 16:38 Sodium 138 138 (136-145) mEq/L Potassium 4.4 4.0 (3.5-5.1) mEq/L Chloride 108 H 109 H (98-107) mEq/L Carbon Dioxide 24 21 L (23-29) mEq/L BUN 10 10 (8-23) mg/dL Creatinine 0.76 0.88 (0.70-1.30) mg/dL Glucose 134 H 143 H (70-105) mg/dL Calcium 8.1 L 8.4 L (8.6-10.3) mg/dL Cardiac Enzymes 10/19/17 10/18/17 10/18/17 Range/Units 01:43 22:58 16:38 Troponin I 2.44 H* 2.84 H* 3.07 H* (< 0.04) ng/mL Impressions Head CT 10/18/17 16:49 IMPRESSION: No acute intracranial abnormality. Findings were discussed with Dr. Araya on 10/18/2017 at approximately 5:05 p.m. D/ / 10/18/2017 17:10:00 Medina Torres MD / derrick Interpreting Provider: Medina Torres MD Head CTA 10/18/17 17:57 IMPRESSION: 1. Please correlate the appearance of the posterior circulation on the right side with patient's clinical symptomatology. The takeoff of the right BLANKET FOLDER is not visualized, although a right-sided posterior communicating artery may be present. Superior cerebellar artery on the right side also appears decreasing caliber. 2. Anterior circulation appears intact, with a small foci of atherosclerotic calcification in the cavernous segment of the internal carotid artery. 3. Carotid and vertebral vasculature in the neck appears within normal limits. 4. Bilateral pleural effusions and bibasilar atelectasis. Mild interlobular septal thickening. Mild fluid overload may be present. D/ / Edilberto Pavon / Edilberto Pavon Interpreting Provider: Edilberto Pavon Neck CTA 10/18/17 17:57 IMPRESSION: 1. Please correlate the appearance of the posterior circulation on the right side with patient's clinical symptomatology. The takeoff of the right BLANKET FOLDER is not visualized, although a right-sided posterior communicating artery may be present. Superior cerebellar artery on the right side also appears decreasing caliber. 2. Anterior circulation appears intact, with a small foci of atherosclerotic calcification in the cavernous segment of the internal carotid artery. 3. Carotid and vertebral vasculature in the neck appears within normal limits. 4. Bilateral pleural effusions and bibasilar atelectasis. Mild interlobular septal thickening. Mild fluid overload may be present. D/ / Edilberto Pavon / Edilberto Pavon Interpreting Provider: Edilberto Pavon Active Medications Aspirin (Aspirin) 81 mg PO DAILY SHELBI Stop: 04/20/18 10:01 Last Admin: 10/19/17 13:45 Dose: 81 mg Atorvastatin Calcium (Lipitor) 80 mg PO HS SHELBI Stop: 04/20/18 10:01 Last Admin: 10/19/17 13:45 Dose: 80 mg Heparin Sodium (Porcine) (Heparin) 4,000 unit IVP Q6HR PRN PRN Reason: SEE COMMENTS Stop: 04/19/18 18:42 Heparin Sodium (Porcine) (Heparin) 2,000 unit IVP Q6H PRN PRN Reason: SEE COMMENTS Stop: 04/19/18 18:42 Heparin Sodium/Dextrose (Heparin 25,000 Unit/500 Ml D5w) 25,000 unit in 500 mls @ 19.994 mls/hr IVC .Q24H SHELBI; 11.6 UNIT/KG/HR PRN Reason: Protocol Stop: 04/19/18 18:46 Last Titration: 10/19/17 10:24 Dose: 11.59 unit/kg/hr, 19.994 mls/hr Lisinopril (Zestril) 2.5 mg PO DAILY SHELBI Stop: 04/20/18 13:46 Naloxone HCl (Narcan) 0.4 mg IVP Q2MIN PRN PRN Reason: SEE COMMENTS Stop: 04/20/18 00:30 - Imaging and Cardiology Stress Test: report reviewed Echo: report reviewed - EKG Interpretation EKG results cardiology: personally reviewed (diffuse ST changes), other (12 hr tele AVG HR 83, frequent PVCs.) Consult Discharge Plan - Plan Referrals: Huy Reyes DO [Primary Care Provider] -
--- NOTE | 2017-10-19 15:00 | Neurology - Consult Note ---
Date of Encounter: 10/19/17 Time of Encounter: 12:00 Assessment and Plan (1) TIA (transient ischemic attack) Current Visit: Yes Status: Acute 77 year old man with HTN, GERD, systolic CHF who developed an episode of reduced level of consciousness, slurred speech and bilateral weakness lasting few hours in duration without rapid improvement but not back to baseline. Symptoms involve sleepiness with slurred speech and leg weakness in the setting of low blood pressure with symptoms rapidly improved. Neurologist examination showed no significant focal findings. Not convinced that this is a true TIA since the symptoms are difficult to localize and are more suggestive of a global nature than focal deficits. However, due to him having multiple risk factor for CVA i would agree with TIA/ CVA work up including MRI of brain without contrast, echocardiography and carotid artery duplex study. Agree with cardiology consultation for cardiac causes and management his blood pressure. Please continue medical and supportive care. Currently the patient have no focal neurological deficits but daughter feels that he is still weak in his legs when trying to walk and he also still has subtle slurred speech however, language content is intact. Agree with aspirin 81 mg daily. Will follow up when stroke work up is complete. History of Present Illness Chief complaint: sleepiness, slurred speech and leg weakness HPI: Mr. Gonzalez is a 77 year old male with PMH significant for HTN, systolic CHF, GERD , Kidney stone, and recent gall bladder surgery in July/2017 who presented with acute onset of altered mental status, leg weakness and slurred speech. Patient is interviewed in the presence of his and daughter. The symptoms started yesterday afternoon and the patient was found to be sleepy in the car. He also appears to have slurred speech and when asked to get out of the car he could not. By the time he was sent to the ER his symptoms started to improve. He had gall bladder removed in July/2017. Since then he has not been feeling well , although most of the time he is still able to function. Prior to the gall bladder surgery he was very active and normal in function per his . 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 Currently the patient is feeling much better but daughter relates that he is still having slurred speech and he is still weak in his legs. mentions that his blood pressure has been running low and at times it could be lower than [address] of head showed no acute intracranial abnormality. Past Med Surg Social Fam HX - Past Medical History Medical history: cardiomyopathy, coronary artery disease, hyperlipidemia, hypertension, kidney stones Additional medical history: Left sided pneumonia with partial lung collapse. 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 Psychiatric history: no psych history - Past Surgical History Surgical History: non-contributory, cataract Additional surgical history: Prostate surgery - Social History Smoking Status: Never smoker Smokeless Tobacco Status: No Alcohol use: none Drug use: none Medications and Allergies Aspirin [Lo-Dose Aspirin EC] 81 mg PO DAILY 10/18/17 [History] Lisinopril 2.5 mg PO DAILY 10/18/17 [History] Omeprazole [PriLOSEC] 20 mg PO BIDAC 10/18/17 [History] 3 Allergy/AdvReac Type Severity Reaction Status Date / Time No Known Allergies Allergy Verified 10/18/17 16:39 All Systems: The remainder of the systems were reviewed and are negative Physical Examination - Vital Signs Vital Signs: Initial Vital Signs Pulse Resp BP Pulse Ox 95 20 148/103 92 10/18/17 16:37 10/18/17 16:37 10/18/17 16:37 10/18/17 16:37 - Constitutional General appearance: comfortable - Neurologic Detailed motor examination: full strength in all major muscle groups Motor examination - right side: 5/5: deltoids, biceps, triceps, wrist flexion, wrist extension, green building materials distributor, hip flexors, tibialis Anterior, quadriceps, toe extension (EHL), plantarflexion Motor examination - left side: 5/5: deltoids, biceps, triceps, wrist flexion, wrist extension, hip flexors, green building materials distributor, quadriceps, tibialis Anterior, toe extension (EHL), plantarflexion Detailed sensory examination: intact (Grossly intact) Posture: other (None) Reflex and gait examination: other (Gait not assessed) Reflexes: Biceps: 1+, Triceps: 1+, Brachioradialis: 1+, Patella: 1+, Achilles: 1 + Mental Status Examination: awake, alert, oriented to person, oriented to place, oriented to time, follows commands appropriately, answers questions appropriately, no agnosia, no aphasia, no aproxia Cranial nerve examination: PERRL (right eye legally blind and mild eyelid drooping seen), EOMI, visual marion intact, corneal reflexes brisk symmetrically , sensory to face intact, mastication intact, no facial asymmetry is present, no dysarthria, hearing is intact symmetrically, soft palate elevates bilaterally upon phonation, gag reflex intact, flexes SCM and trapezius muscles symmetrically with full power, tongue protrudes midline, no atrophy or facial fasiculations present Cerebellar examination: no dysmetria, performs finger to nose and heel to alfonso symmetrically without ataxia, no gait ataxia, no truncal ataxia, no difficulty with rapid alternating movements Results - Laboratory Findings CBC and BMP: 10/19/17 01:43 10/19/17 01:43 Abnormal lab findings: Abnormal lab results RDW 15.5 % (11.5-14.5) H 10/19/17 01:43 PT 13.7 Seconds (9.4-12.1) H 10/18/17 19:23 Chloride 108 mEq/L (98-107) H 10/19/17 01:43 Glucose 134 mg/dL (70-105) H 10/19/17 01:43 POC Glucose 120 mg/dL (70-99) H 10/18/17 16:35 Calcium 8.1 mg/dL (8.6-10.3) L 10/19/17 01:43 Troponin I 2.44 ng/mL (< 0.04) H* 10/19/17 01:43 - Diagnostic Findings Additional findings: CTA OF THE NECK; CTA OF THE HEAD WITHOUT AND WITH CONTRAST 10/18/2017 6:36 pm; 10/18/2017 6:31 pm: TECHNIQUE: CTA of the neck was performed with the administration of intravenous contrast. Multiplanar reformatted images are provided for review. MIP images are provided for review. Stenosis of the internal carotid arteries measured using NASCET criteria. Dose modulation, iterative reconstruction, and/or weight based adjustment of the mA/kV was utilized to reduce the radiation dose to as low as reasonably achievable.; CTA of the head/brain was performed without and with the administration of intravenous contrast. Multiplanar reformatted images are provided for review. MIP images are provided for review. Dose modulation, iterative reconstruction, and/or weight based adjustment of the mA/kV was utilized to reduce the radiation dose to as low as reasonably achievable. COMPARISON: None. HISTORY: ORDERING SYSTEM PROVIDED HISTORY: stroke eval; ORDERING SYSTEM PROVIDED HISTORY: stroke eval Additional tech notes: 19 has iv .88 >60 FINDINGS: CTA NECK: AORTIC ARCH/ARCH VESSELS: There is a normal branch pattern of the aortic arch. No significant stenosis is seen of the innominate artery or subclavian arteries. CAROTID ARTERIES: The common carotid arteries are normal in appearance without evidence of a flow limiting stenosis. The internal carotid arteries are normal in appearance without evidence of a flow limiting stenosis by NASCET criteria. No dissection or arterial injury is seen. VERTEBRAL ARTERIES: The vertebral arteries both arise from the subclavian arteries and are normal in caliber without evidence of flow limiting stenosis or dissection. SOFT TISSUES: The lung apices show bilateral pleural effusions, other interlobular septal thickening as well as atelectasis. No cervical or superior mediastinal lymphadenopathy. The visualized portion of the larynx and pharynx appear unremarkable. The parotid, submandibular and thyroid glands demonstrate no acute abnormality. BONES: The visualized osseous structures appear unremarkable. CTA HEAD: ANTERIOR CIRCULATION: The internal carotid arteries are normal in course and caliber without focal stenosis. The anterior cerebral and middle cerebral arteries demonstrate no focal stenosis. POSTERIOR CIRCULATION: On the right side, there appears to be diminutive takeoff of the superior cerebellar artery. Additionally, the origin of the right posterior cerebral artery is not well visualized. A right-sided posterior communicating artery may be present. BRAIN: No mass effect or midline shift. No abnormal extra-axial fluid collection. The rodas-white differentiation appears grossly maintained. CT/CT angio head IMPRESSION: 1. Please correlate the appearance of the posterior circulation on the right side with patient's clinical symptomatology. The takeoff of the right PUBLIC TRANSIT SPECIALIST is not visualized, although a right-sided posterior communicating artery may be present. Superior cerebellar artery on the right side also appears decreasing caliber. 2. Anterior circulation appears intact, with a small foci of atherosclerotic calcification in the cavernous segment of the internal carotid artery. 3. Carotid and vertebral vasculature in the neck appears within normal limits. 4. Bilateral pleural effusions and bibasilar atelectasis. Mild interlobular septal thickening. Mild fluid overload may be present. Consult Discharge Plan - Plan Referrals: Huy Reyes DO [Primary Care Provider] -
--- NOTE | 2017-10-19 19:05 | Discharge Summary ---
Orders not resulted at time of discharge: Pending orders 10/19/17 09:15 MR head/brain wo con [MR] Routine 10/19/17 10:31 Heparin anti-factor XA UFH [COAG] Timed 10/20/17 00:01 XR modified bs w speech therap [XR] Routine Date of Encounter: 10/19/17 Time of Encounter: 19:01 - Discharge Diagnosis (1) NSTEMI (non-ST elevated myocardial infarction) Priority: Primary Status: Acute (2) Systolic and diastolic CHF, chronic Priority: Secondary Status: Acute (3) Slurred speech Priority: Primary Status: Acute (4) TIA (transient ischemic attack) Priority: Primary Status: Acute (5) Cardiomyopathy Priority: Secondary Status: Acute Qualifiers: Cardiomyopathy type: unspecified Qualified Code(s): I42.9 - Cardiomyopathy , unspecified Hospital course: Mr. Gonzalez is a 77 year old male with PMH of HTN, recently diagnosed systolic CHF EF 40-45%, presumed CAD by prior infarct noted on stress, recent cholecystectomy that presented after patient's noticed pt had fallen asleep and could not be easily woken up. When she did manage to wake him, he was slurring his words, and the patient noticed that he was having trouble pronouncing words. Upon arrival, he had difficulty getting out of the car, and felt weak. Pt denies chest pain or dyspnea. Stroke alert was called and [facility] was consulted. TPA was recommended, however declined by the patient and as his symptoms had improved and he recently had surgery. CT head was done and showed no acute intracranial abnormality. [facility] recommended getting head and neck CTA for further evaluation. CTA of head did now show any acute changes other than RANGE EXAMINER was not well visualized. Patient was also found to have an elevated troponins 3.07, 2.84, 2.44. Cardiology consulted for further recs. He denied any CP, does have mild non specific EKG changes. His repeat 2D Echo showed worsening LVEF @ 20%. Card recommend [facility], however wanted stroke work up prior to [facility]. Pt had a metal in his eye, we are trying to get records from [facility] about his eye surgery for more information about the metal. However pt and family would like to transfer the pt to [place] for further higher level of care, since he is very high risk with his all the comorbodities. Depending on his presentation he may have severe CAD, may need CTS evaluation too depending on [facility] report. So talked to [facility], they will take him whenever they have bed available. Me and Dr. Melchor had a long discussion with pt, and son at bed side. Explained to them about [place] transfer too. - Time Spent with Patient Total time spent providing and/or coordinating discharge services: - Discharge Medications Home Medications: Aspirin [Lo-Dose Aspirin EC] 81 mg PO DAILY 10/18/17 [History] Lisinopril 2.5 mg PO DAILY 10/18/17 [History] Omeprazole [PriLOSEC] 20 mg PO BIDAC 10/18/17 [History] Allergies/Adverse Reactions: 3 Allergy/AdvReac Type Severity Reaction Status Date / Time No Known Allergies Allergy Verified 10/18/17 16:39 Date of admission: 10/18/17 21:53 Primary care physician: Denver Reyes DO Consults: 10/19/17 06:08 Consult to Speech Therapy [CONS] Routine Comment: Evaluate, develop and implement POC Reason for Consult: facial droop and slurring of speech Call Completed: No 10/19/17 09:07 Consult to Cardiology [CONS] Routine Comment: Consulting Provider: [facility] Reason for Consult: elevated trop Call Completed: Yes 10/19/17 09:14 Consult to Neurology [CONS] Routine Consulting Provider: [facility] Reason for Consult: CVA/TIA, refused tPA Time Notified: 09:15 Call Completed: No 10/19/17 09:16 Consult to Physical Therapy [CONS] Routine Comment: Evaluate, develop and implement POC Reason for Consult: CVA Does patient have active BEDREST order?: No Is patient medically & hemodynamically stable?: Yes OT [Consult to Occupational Therapy] [CONS] Routine Comment: Evaluate, develop and implement POC Reason for Consult: CVA Does patient have active BEDREST order?: No Is patient medically & hemodynamically stable?: Yes - Constitutional Vitals: Temp Pulse Resp BP Pulse Ox 97.8 F 77 16 123/86 92 10/19/17 16:14 10/19/17 16:14 10/19/17 16:14 10/19/17 16:14 10/19/17 16:14 General appearance: Present: cooperative, A&O X 3, pleasant, no acute distress, answers questions appropriately - Head Head exam: Present: atraumatic, normal inspection - Neck Neck exam general surgery: Present: supple - Respiratory Respiratory exam: Present: decreased breath sounds. Absent: rales, respiratory distress, rhonchi, wheezes - Cardiovascular Cardiovascular exam: Present: RRR, +S1, +S2. Absent: tachycardia - GI/Abdominal GI/Abdominal exam: Present: normal bowel sounds, soft. Absent: rebound, rigid, tenderness - Extremities Exam Extremities exam: Absent: calf tenderness, pedal edema, tenderness - Back Exam Back exam: Absent: CVA tenderness (L), CVA tenderness (R) - Neurological Exam Neurological exam: Present: alert, CN II-XII intact, oriented X3, no focal deficits, strengths equal and symetr throughout. Absent: pronater drift, facial droop, speech deficit - Psychiatric Psychiatric exam: Present: normal affect, normal mood - Skin Skin exam: Absent: rash - Patient Status Disposition: Transfer Other Condition: Fair - Discharge Instructions Follow Up With: Huy Reyes DO [Primary Care Provider] -
--- NOTE | 2017-10-19 19:42 | Electrocardiograph Report ---
[place] [id number] Test Date: 2017-10-18 Pat Name: Laureano Gonzalez Department: 103 Room: 2NE16 Gender: M [employer] Police Officer: NAIN : 1940 Requested By: Cornelio Noriega Order Number: [id number] Reading MD: Mary Bullock Measurements Intervals [place] Rate: 75 P: 8 UT: 154 QRS: -35 QRSD: 132 T: 136 QT: 405 QTc: 433 Interpretive Statements SINUS RHYTHM WITH OCCASIONAL VENTRICULAR PREMATURE COMPLEXES WITH OCCASIONAL SUPRAVENTRICULAR PREMATURE COMPLEXES LEFT AXIS DEVIATION [QRS AXIS < -30] INTRAVENTRICULAR CONDUCTION DELAY [130+ ms QRS DURATION] POSSIBLE ANTERIOR MYOCARDIAL INFARCTION [30 ms Q WAVE IN V3/V4, OR R < 0.2 mV IN V4], OF INDETERMINATE AGE Electronically Signed On 10-19-2017 19:40:41 EDT by Mary Bullock
[2017-10-20 06:50] VITALS: BP 139/90
[2017-10-20] MEDS ORDERED: Acetaminophen 325 MG TABLET PO PRN (07:51)
[2017-10-20] MEDS ORDERED: *HR* HYDROcodone/Acet 5/325 mg TABLET PO PRN (07:51)
[2017-10-20] MEDS: Aspirin 81 MG TAB.CHEW PO SCH (08:14)
--- NOTE | 2017-10-20 08:20 | Discharge Summary ---
Orders not resulted at time of discharge: Pending orders 10/19/17 09:15 MR head/brain wo con [MR] Routine 10/19/17 10:31 Heparin anti-factor XA UFH [COAG] Timed 10/20/17 07:53 CT head/brain wo con [CT] Routine EKG [ECG 12 lead ECG] [ECG] Stat 10/20/17 10:45 CT head/brain wo con [CT] Routine Date of Encounter: 10/20/17 Time of Encounter: 07:40 - Discharge Diagnosis (1) Elevated troponin Status: Acute (2) Stroke Status: Acute Qualifiers: CVA mechanism: unspecified Qualified Code(s): I63.9 - Cerebral infarction, unspecified (3) Heart failure with preserved ejection fraction Status: Acute Hospital course: Mr. Gonzalez is a 77 year old male - Time Spent with Patient Total time spent providing and/or coordinating discharge services: - Discharge Medications Home Medications: Aspirin [Lo-Dose Aspirin EC] 81 mg PO DAILY 10/18/17 [History] Lisinopril 2.5 mg PO DAILY 10/18/17 [History] Omeprazole [PriLOSEC] 20 mg PO BIDAC 10/18/17 [History] Allergies/Adverse Reactions: 3 Allergy/AdvReac Type Severity Reaction Status Date / Time No Known Allergies Allergy Verified 10/18/17 16:39 Date of admission: 10/18/17 21:53 Primary care physician: Denver Reyes DO Consults: 10/19/17 06:08 Consult to Speech Therapy [CONS] Routine Comment: Evaluate, develop and implement POC Reason for Consult: facial droop and slurring of speech Call Completed: No 10/19/17 09:07 Consult to Cardiology [CONS] Routine Comment: Consulting Provider: [facility] Reason for Consult: elevated trop Call Completed: Yes 10/19/17 09:14 Consult to Neurology [CONS] Routine Consulting Provider: [facility] Reason for Consult: CVA/TIA, refused tPA Time Notified: 09:15 Call Completed: No 10/19/17 09:16 Consult to Physical Therapy [CONS] Routine Comment: Evaluate, develop and implement POC Reason for Consult: CVA Does patient have active BEDREST order?: No Is patient medically & hemodynamically stable?: Yes OT [Consult to Occupational Therapy] [CONS] Routine Comment: Evaluate, develop and implement POC Reason for Consult: CVA Does patient have active BEDREST order?: No Is patient medically & hemodynamically stable?: Yes - Constitutional Vitals: Temp Pulse Resp BP Pulse Ox 97.8 F 83 18 139/90 95 10/20/17 06:46 10/20/17 06:46 10/20/17 06:46 10/20/17 06:46 10/20/17 06:46 General appearance: Present: cooperative, pleasant, no acute distress, answers questions appropriately Exam: PE general: elderly m in no acute distress. alert and oriented to person, place, and did not know the month or date. HEENT: R and L pupil nonreactive to light. obvious loss of R eye vision with sclerosis replacing the pupil. facial asymmetry that states is normal appearance. heart: aortic and pulmonic sounds distant. RRR. no murmurs, rubs, gallops. many premature beats. no JVD. lungs: Crackles throughout. distant lung sounds. vascular: no carotid bruits. no abd bruits. radial and dorsalis pedis 2+. abd: non-distended. small healing 1 cm lesion between L upper and lower quadrants. neuro: CN I- not assessed II - pupils nonreactive to light III, IV, - eomi on the L. difficulty with adduction and adduction with superior and inferior gaze of R eye. VIII - hearing worse on the R but intact b/l all other cranial nerves intact strength: 5/5 upper and lower Ext. save hip extension not assessed. sensation: intact upper and lower Ext. reflexes: 2/4 brachioradialis and patellar cerebellar: gait: MSK: b/l pedal edema no pitting - Patient Status Disposition: Transfer Other Condition: Fair - Discharge Instructions Instructions: Myocardial Infarction (DC), Ischemic Stroke (DC), Ischemic Stroke (GEN) Follow Up With: Sergei Bhatti MD [Partnered Physician] - 10/24/17 11:00 am (Cardiology Appointment) Huy Reyes DO [Primary Care Provider] - 10/27/17 9:30 am (discharge follow up appointment) Tim Melo MD [Non-Partnered Physician] - 10/24/17 10:15 am (Neurology Appointment) - Stroke Contraindication Rehab Services Not Assessed: Refused by Patient / Family
--- NOTE | 2017-10-20 11:55 | Internal Med Progress Note ---
<Fox Ibarra - Last Filed: 10/20/17 14:40> Date of Encounter: 10/20/17 Time of Encounter: 08:00 - Assessment and plan (1) Elevated troponin Status: Acute Assessment and plan: elevated troponin CAD leading to ischemia of the cardiac wall. likely not full thickness as no STEMI was present upon review of EKG. evidence patient denies any chest pain during episode, but admits diaphoresis during episode. troponins 10/18: 3.07 -> 2.84. 10/19: 2.44 10/20: 3.55 EKG interpreted 09/18: frequent PVC's with frequent supraventricular premature complexes. L axis deviation. LBBB. no official EKG interpretation by cardiology performed as of 10/19. cardiac consultation report 10/19: stress test completed on 09/13/17 showed prior infarct, gated EF 36%. Echo 10/19/17: LVEF 20%. severe global and segmental LV systolic dysfunction. severely dilated LV. diastolic dysfunction with elevated filling pressures. severely dilated L atrium. mild/moderate mitral regurg. mild aortic, tricuspid regurg. mild pulmonary HTN by TR gradient. No evidence of PFO. other details in echo report 10/19/17. treatment ASA 324 mg given 20:07 10/18 and 81 mg active. atorvastatin heparin drip started 18:41 10/18 O2 via nasal cannula 2lpm nitrate not given lisinopril active metoprolol 12.5 mg po twice daily active cardiology consulted 10/19 and we appreciate their recommendations. (2) Stroke Status: Acute Assessment and plan: CVA etiology thrombus secondary to atherosclerosis. echo rules out embolism from more central source. consider paroxysmal atrial fibrillation. consider pooling of blood in left atrial appendage due to severe dilation. evidence signs and symptoms as outlined in subjective portion of note on 10/19. CT head ordered 16:49 10/18 - no acute intracranial abnormality. CT head 10/20 (repeat): no acute intracranial abnormality. previous area of injury/infarct in R cerebellum. Mild chronic small vessel ischemic changes. CTA head and neck ordered 17:57 10/18/17- takeoff of [employer] not visualized decreased caliber of superior cerebellar artery on the R intact anterior circulation small foci of atherosclerotic calcification in the ICA carotid and vertebral vasculature WNL b/l pleural effusions and bibasilar atelectasis. mild interlobular septal thickening. possible mild fluid overload. Echo 10/19/17: LVEF 20%. severe global and segmental LV systolic dysfunction. severely dilated LV. diastolic dysfunction with elevated filling pressures. severely dilated L atrium. mild/moderate mitral regurg. mild aortic, tricuspid regurg. mild pulmonary HTN by TR gradient. No evidence of PFO. other details in echo report 10/19/17. treatment ASA 81 mg active. was not taking regularly during time of event. MRI not performed due to metal in patient's eye. neurology consulted and plans to follow up when stroke workup is completed. Qualifiers: CVA mechanism: unspecified Qualified Code(s): I63.9 - Cerebral infarction, unspecified (3) Heart failure with reduced ejection fraction Status: Acute Assessment and plan: Heart failure with reduced EF etiology acutely worsened - ischemic cardiomyopathy from coronary atherosclerosis. Class I Stage C evidence TTE 09/12/17: LVEF 40-45%. mildly dilated LV. segmental LV systolic dysfunction. mild LV diastolic dysfunction atypical septal motion consistent with BBB normal RV mild pulm HTN no significant valve dysfunction Echo 10/19/17: LVEF 20%. severe global and segmental LV systolic dysfunction. severely dilated LV. diastolic dysfunction with elevated filling pressures. severely dilated L atrium. mild/moderate mitral regurg. mild aortic, tricuspid regurg. mild pulmonary HTN by TR gradient. No evidence of PFO. other details in echo report 10/19/17. acute drop in EF most likely due to ischemic cardiomyopathy considering troponin levels this visit: troponins 10/18: 3.07 -> 2.84. 10/19: 2.44. 10/20: 3.55. treatment Denies PND, orthopnea, shortness of breath with normal activity. pedal edema noted better in the mornings. exam: b/l pedal edema non-pitting. I/O: [id number]/1375 [id number] treatment per cardiology consult note 10/19: patient claims blood pressures low at prior dose of metoprolol. we have appreciated cardiology consult to begin metoprolol at lower dose and will continue on ASA, Statin, and PERRI inhibitor. will consider adding diuretic if symptoms worsen. Qualifiers: Heart failure chronicity: acute on chronic Qualified Code(s): I50.23 - Acute on chronic systolic (congestive) heart failure - Time Spent With Patient Total time spent is greater than 50% in coordination of care (as documented) at patient's floor/unit and/or counseling patient: - Subjective Interval history: Patient account of 10/18 events: Mr. Gonzalez is a 77 Yo M who presented to the ED at 16:29 on 10/18 after experiencing intermittent slurred speech yesterday while riding as a passenger in his car around 3:45. His was the stud driver and noticed this speech as well after she had to "wake him up" in the passengers seat. The patient denies loss of conciousness but does remember feeling very sleepy in the car. His denies noticing any twitching of his muscles. When getting out of the car he noticed weakness of b/l lower Ext. He denies doing anything out of the usual earlier that day. no prior. no pain associated with the episode. admits fall in his barn 2-3 weeks ago after which he landed on his hand and side. Denies significant injuries from this fall. admits nausea no vomiting, tingling in b/l 5th digit the day prior, intermittent blurry vision, very mild headache. Denies fever, infection, numbness, bone/connective tissue genetic disorders Denies confusion but the states that he was talking about things that weren 't actually there, and pointed to his finger as opposed to wrist to indicate a timewatch when she asked him what the time was. She thinks he was confused during this time. The patient was not taking ASA regularly at home. PMH: confirmed cholecystitis s/p removal, paraesophageal hiatal hernia, cardiomyopathy, acute systolic heart failure, prostate cancer s/p cryoablation, b/l nephrolithiasis, respiratory failure. PSH: cholecystectomy. cryoablation of prostate. double hernia repair. retinal detachment repair b/l. Meds: omeprazole was the only thing the patient was taking consistently at home prior to the event. Allergies: NKA SH: occasional tobacco use in his 20's. not every day. enjoyed cigars for several years. no etoh or recreational drugs. FH: not assessed EMR information regarding 10/18: troponin at 16:38: 3.07 CT head ordered 16:49 - no acute intracranial abnormality CTA head and neck ordered 17:57- takeoff of R [employer] not visualized decreased caliber of superior cerebellar artery on the R intact anterior circulation small foci of atherosclerotic calcification in the ICA carotid and vertebral vasculature WNL b/l pleural effusions and bibasilar atelectasis. mild interlobular septal thickening. possible mild fluid overload. 10/19 The patient admits continued weakness of lower Ext. as well as intermittent slurred speech. Nausea has resolved. Denies any new headache or other new symptoms. MRI ordered - results pending Echo ordered - results pending see management details in A/P portion of note 10/20 The patient does not believe that he has any slurred speech today. He still cannot walk on his own due to b/l lower Ext. weakness. He has a mild headache with no other pain. denies numbness or tingling. He denies diaphoresis or chest pain during the original episode or today. He denies history of PND, orthopnea. No dyspnea during normal daily activities. He denies ever using home oxygen. pedal edema occasionally that is typically resolved in the mornings. MRI was cancelled because the patient has metal in his eye. Echo results: LVEF 20%. severe global and segmental LV systolic dysfunction. severely dilated LV. diastolic dysfunction with elevated filling pressures. severely dilated L atrium. mild/moderate mitral regurg. mild aortic, tricuspid regurg. mild pulmonary HTN by TR gradient. No evidence of PFO. other details in echo report 10/19/17. repeat head CT results: no acute intracranial abnormality. previous area of injury/infarct in R cerebellum. Mild chronic small vessel ischemic changes. The patient was supposed to be transferred to [facility] yesterday per family request, but is still waiting on a bed. other management details in A/P portion of note. - Constitutional Vitals: Temp Pulse Resp BP Pulse Ox 97.8 F 83 18 139/90 95 10/20/17 06:46 10/20/17 06:46 10/20/17 06:46 10/20/17 06:46 10/20/17 06:46 General appearance: Present: cooperative, pleasant, no acute distress, answers questions appropriately Exam: PE general: elderly m in no acute distress. alert and oriented to person, place, and did not know the month or date. HEENT: R and L pupil nonreactive to light. obvious loss of R eye vision with sclerosis replacing the pupil. facial asymmetry that states is normal appearance. heart: aortic and pulmonic sounds distant. RRR. no murmurs, rubs, gallops. many premature beats. no JVD. lungs: Crackles throughout. distant lung sounds. vascular: no carotid bruits. no abd bruits. radial and dorsalis pedis 2+. abd: non-distended. small healing 1 cm lesion between L upper and lower quadrants. neuro: CN I- not assessed II - pupils nonreactive to light III, IV, - eomi on the L. difficulty with adduction and adduction with superior and inferior gaze of R eye. VIII - hearing worse on the R but intact b/l all other cranial nerves intact strength: 5/5 upper and lower Ext. save hip extension not assessed. sensation: intact upper and lower Ext. reflexes: 2/4 brachioradialis and patellar cerebellar: more difficulty with L finger to nose test than right. rapid alternating movement intact and equal b/l. MSK: non-pitting pedal edema Internal Medicine: Result - Labs CBC & Chem 7: 10/19/17 01:43 10/19/17 01:43 Labs: Cardiac Enzymes 10/20/17 Range/Units 03:46 Troponin I 3.55 H* (< 0.04) ng/mL - ABG Interpretation ABG results: PT/INR, D-dimer PT 13.7 Seconds (9.4-12.1) H 10/18/17 19:23 - Impressions Impressions Echocardiogram 10/19/17 09:14 Impressions: LVEF 20%. Severe global and segmental LV systolic dysfunction. Severely dilated left ventricle. Diastolic dysfunction with elevated filling pressures. RV size is normal with mild reduction in function. Severely dilated left atrium. Mild-moderate mitral regurgitation. Mild aortic regurgitation. Mild tricuspid regurgitation. Mild pulmonary hypertension by TR gradient. IVC not well visualized. No evidence of PFO with agitated saline contrast. Left Ventricular Wall Motion: Rest Echo Findings The apex, apical inferior, mid inferior, basal inferior, apical anterior, mid anterior, basal anterior, apical septal, mid inferior septal, basal inferior septal, apical lateral, mid anterior lateral, basal anterior lateral, mid anterior septal, mid inferior lateral, basal anterior septal and basal inferior lateral weaver were hypokinetic. Findings: Study Quality * Technically adequate exam. ECG Findings * Sinus rhythm with BBB and ventricular ectopy. Left Ventricle * LVEF 20%. * Severely dilated left ventricle. * Diastolic dysfunction with elevated filling pressures. Right Ventricle * RV size is normal with mild reduction in function. Left Atrium * Severely dilated left atrium. Right Atrium * Normal right atrial size. Mitral Valve * Normal mitral valve structure. * No mitral stenosis. * Mild-moderate mitral regurgitation. Aortic Valve * Trileaflet aortic valve. * Mildly thickened aortic valve leaflets. * No aortic stenosis. * Mild aortic regurgitation. Tricuspid Valve * Tricuspid valve not well visualized. * Mild tricuspid regurgitation. Pulmonic Valve * Pulmonic valve is not well visualized. * No pulmonic stenosis. * No pulmonic regurgitation. Pulmonary Artery * Pulmonary artery not well visualized. Aorta * Normally sized aortic root. Pericardium * There is no pericardial effusion present. Interatrial Septum * Interatrial septum not well evaluated. * No evidence of PFO with agitated saline contrast. IVC * The IVC is not well evaluated. Head CT 10/20/17 10:45 IMPRESSION: No acute intracranial abnormality. Previous area of injury or infarct in the right cerebellum. Mild chronic small vessel ischemic changes. D/ / 10/20/2017 09:46:45 Irina Blake MD / jil Interpreting Provider: Irina Blake MD - Stroke Contraindication Rehab Services Not Assessed: Refused by Patient / Family Consult Discharge Plan - Plan Instructions: Myocardial Infarction (DC), Heart Failure (DC), Ischemic Stroke ( DC), Ischemic Stroke (GEN) Referrals: Sergei Bhatti MD [Partnered Physician] - 10/24/17 11:00 am (Cardiology Appointment) Huy Reyes DO [Primary Care Provider] - 10/27/17 9:30 am (discharge follow up appointment) Tim Melo MD [Non-Partnered Physician] - 10/24/17 10:15 am (Neurology Appointment) <Justina Wheeler - Last Filed: 10/20/17 15:20> Date of Encounter: 10/20/17 - Assessment and plan (1) NSTEMI (non-ST elevated myocardial infarction) Status: Acute (2) Systolic and diastolic CHF, chronic Status: Acute (3) Slurred speech Status: Acute (4) TIA (transient ischemic attack) Status: Acute (5) Cardiomyopathy Status: Acute Qualifiers: Cardiomyopathy type: unspecified Qualified Code(s): I42.9 - Cardiomyopathy , unspecified - Time Spent With Patient Total time spent is greater than 50% in coordination of care (as documented) at patient's floor/unit and/or counseling patient: - Constitutional Vitals: Temp Pulse Resp BP Pulse Ox 97.8 F 83 18 139/90 95 10/20/17 06:46 10/20/17 06:46 10/20/17 06:46 10/20/17 06:46 10/20/17 06:46 Internal Medicine: Result - Labs CBC & Chem 7: 10/19/17 01:43 10/19/17 01:43 Labs: Cardiac Enzymes 10/20/17 Range/Units 03:46 Troponin I 3.55 H* (< 0.04) ng/mL - ABG Interpretation ABG results: PT/INR, D-dimer PT 13.7 Seconds (9.4-12.1) H 10/18/17 19:23 - Impressions Impressions Echocardiogram 10/19/17 09:14 Impressions: LVEF 20%. Severe global and segmental LV systolic dysfunction. Severely dilated left ventricle. Diastolic dysfunction with elevated filling pressures. RV size is normal with mild reduction in function. Severely dilated left atrium. Mild-moderate mitral regurgitation. Mild aortic regurgitation. Mild tricuspid regurgitation. Mild pulmonary hypertension by TR gradient. IVC not well visualized. No evidence of PFO with agitated saline contrast. Left Ventricular Wall Motion: Rest Echo Findings The apex, apical inferior, mid inferior, basal inferior, apical anterior, mid anterior, basal anterior, apical septal, mid inferior septal, basal inferior septal, apical lateral, mid anterior lateral, basal anterior lateral, mid anterior septal, mid inferior lateral, basal anterior septal and basal inferior lateral weaver were hypokinetic. Findings: Study Quality * Technically adequate exam. ECG Findings * Sinus rhythm with BBB and ventricular ectopy. Left Ventricle * LVEF 20%. * Severely dilated left ventricle. * Diastolic dysfunction with elevated filling pressures. Right Ventricle * RV size is normal with mild reduction in function. Left Atrium * Severely dilated left atrium. Right Atrium * Normal right atrial size. Mitral Valve * Normal mitral valve structure. * No mitral stenosis. * Mild-moderate mitral regurgitation. Aortic Valve * Trileaflet aortic valve. * Mildly thickened aortic valve leaflets. * No aortic stenosis. * Mild aortic regurgitation. Tricuspid Valve * Tricuspid valve not well visualized. * Mild tricuspid regurgitation. Pulmonic Valve * Pulmonic valve is not well visualized. * No pulmonic stenosis. * No pulmonic regurgitation. Pulmonary Artery * Pulmonary artery not well visualized. Aorta * Normally sized aortic root. Pericardium * There is no pericardial effusion present. Interatrial Septum * Interatrial septum not well evaluated. * No evidence of PFO with agitated saline contrast. IVC * The IVC is not well evaluated. Head CT 10/20/17 10:45 IMPRESSION: No acute intracranial abnormality. Previous area of injury or infarct in the right cerebellum. Mild chronic small vessel ischemic changes. D/ / 10/20/2017 09:46:45 Irina Blake MD / jil Interpreting Provider: Irina Blake MD - Attending Attestation I examined this patient and my medical decision-making was reviewed with the Resident Physician Dr. Grace. I agree with the documented findings, disposition and treatment plan as described except to the extent set forth below. Mr. Gonzalez is a 77 year old male with PMH of HTN, recently diagnosed systolic CHF EF 40-45%, presumed CAD by prior infarct noted on stress, recent cholecystectomy that presented after patient's noticed pt had fallen asleep and could not be easily woken up. When she did manage to wake him, he was slurring his words, and the patient noticed that he was having trouble pronouncing words. His repeat 2D Echo showed worsening LVEF @ 20%. Card recommend [facility], however wanted stroke work up prior to [facility]. Pt had a metal in his eye, we are trying to get records from [place] about his eye surgery for more information about the metal. However pt and family would like to transfer the pt to [facility] for further higher level of care, since he is very high risk with his all the comorbidities. Depending on his presentation he may have severe CAD, may need CTS evaluation too depending on [facility] report. Pt was accepted at [facility] y/d, however they did not have any beds available till this afternoon. [place] events over night. He denied any CP / SOB. No slurred speech. 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 I did double check with radiologist, who mentioned his CVA looks chronic. Updated this information to [facility] transfer center. He does have few PVC's on tele and his Troponin still elevated, so added Metoprolol to his meds. Also continued Heparin gtt. Gen: A, A, O x 3 Chest: Diminished BS b/l Heart: S1S2+ RRR Neuro : No focal deficits
--- NOTE | 2017-10-20 12:05 | Event Note ---
Date of Encounter: 10/20/17 Time of Encounter: 10:00 - Cardiology Event Note Discussed with primary service--patient is pending transfer to [facility] due to CVA. Discussed with Dr. Bullock; Cardiology will sign-off.
== END 2017-10-20 14:55 | disposition other institution (70) ==
LOC: 2NENU 16:29 → EMEROO 16:29 → 2NENU 22:24
PROVIDERS: ADMIT Family Medicine; ATTEND Family Medicine